=== PATIENT | female | born 1970 | race Caucasian/White ===

== ENCOUNTER 2017-09-09 14:20 | Observation (INO) | payer OTHER ==
[~2017-09-09] VITALS: Ht 149.9 cm; Wt 82.0 kg
[~2017-09-09 14:20] MED LIST: FRS/40 PO; HYDR-5688 PO; MCRKUNK PO; MULT-506 PO; PRT/20 PO; TRAZ50TA35 PO
--- NOTE | 2017-09-09 14:42 | EMERGENCY ROOM VISIT NOTE ---
History First contact with patient: 14:24 Stated Complaint: ILLNESS History of Present Illness The patient is a 46 year old female who presents to the Emergency Room with complaints of went to her PCP because she was experiencing opiate withdrawal symptoms. She was told to go the ER due to blood pressure of 170/120. In terms of withdrawal symptoms she is having terrible calf and biceps spasms, insomnia, abdominal cramps, worsening diarrhea (4-5 times/day, no GI bleeding), night sweats, balance problems, dizzy all the time, depth perception changes. She is a previous IVDU (heroin) who quit 13 years ago. She had 7 years without substance abuse but then after some back pain she was treated with Subutex. She has been on Subutex for the past three years. 4 weeks ago she decided to self wean herself off of Subutex over a 2 week period. Her last dose was 2 weeks prior. She also recently injected cocaine on last week to help with her symptoms. She has increased her alcohol intake due to withdrawal symptoms and drank a bottle of whisky over the past 2 days. In addition she bought Xanax (illegally) to manage her insomnia which helped the past 2 nights. She smokes half a pack of cigarettes/day. She has previously been through opiate withdrawals, no previous seizures or alcohol withdrawals. Previous rehabilitation in 1983 and 1995. She managed to quit opiates " because I wanted to" 13 years prior but she would not elaborate on this. She is not known to the hospital but reports not wanting to go to her local hospital ([place]) as she knows people there and family members of hers have previously had misdiagnoses, so she asked the ambulance to bring her here. Her PCP is Dr Duc Kebede. She is known to have hypertension treated with amlodipine, lisinopril and atenolol although she reports not taking her amlodipine recently. She denies any previous stroke or heart attack. Review of Systems All systems reviewed and otherwise negative Past Medical/Surgical History Medical Problems: (1) Cannabis abuse (2) GERD (gastroesophageal reflux disease) (3) Hypertension (4) Insomnia (5) Opiate use (6) Tobacco use disorder (7) Withdrawal etoh, cocaine Surgical Problems: (1) History of cholecystectomy Social History Problems: (1) Alcohol abuse Social History Smoking Status: Current Every Day Smoker (0.5 packs/day) Alcohol Use: heavy Drug Use: cocaine, heroin Current/Historical Medications Scheduled Albuterol Hfa (Ventolin Hfa), 2 PUFFS INH Q6H Amlodipine Besylate (Amlodipine Besylate), 5 MG PO DAILY Aspirin (Aspirin 81), 81 MG PO DAILY Buprenorphine Hcl (Subutex), 1 TAB SL DAILY Furosemide (Lasix), 40 MG PO three times a week Furosemide (Lasix), 1 TAB PO DAILY Montelukast Sodium (Montelukast Sodium), 1 TAB PO DAILY Multivitamin (Multivitamin), 1 TAB PO DAILY Pantoprazole (Protonix), 10 MG PO DAILY Potassium Chloride (Micro-K Ext Rel Unknown Dose), MEQ PO 3-4 times weekly Ranitidine (Zantac), 150 MG PO DAILY Trazodone Hcl (Trazodone), 50 MG PO HS Scheduled PRN Hydrocodone/Acetaminophen 5MG/325MG ([place] 5MG/325MG), 1 TABLET PO DAILY PRN for Pain Miscellaneous Medications Potassium Ext Rel (Klor-Con), 20 MEQ PO Physical Exam Vital Signs Date Time Temp Pulse Resp B/P (MAP) Pulse Ox O2 Delivery O2 Flow Rate FiO2 09/09/17 16:18 75 18 176/117 97 Room Air 09/09/17 15:21 77 18 169/119 97 Room Air 09/09/17 14:38 73 09/09/17 14:36 95 Room Air 09/09/17 14:31 36.6 82 16 179/108 95 Room Air Physical Exam General Appearance: + moderate distress, + obese Head: normocephalic, atraumatic Eyes: normal inspection, PERRL, EOMI ENT: hearing grossly normal, pharynx normal Cardiovascular: regular rate, rhythm, no edema, no murmur, normal peripheral pulses Abdomen / GI: normal bowel sounds, soft, + tenderness Back: no CVA tenderness Extremities: no calf tenderness, normal capillary refill, no pedal edema Neurologic/Psych: 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 COMPARISON STUDY: No previous studies for comparison. FINDINGS: Lung volumes are normal. Lungs are clear. No pneumothorax or pleural effusion is present. Pulmonary vascularity is normal. Cardiomediastinal silhouette is normal. IMPRESSION: No acute cardiopulmonary findings. Electronically signed by: Rd Thomas M.D. 09/09/2017 4:44 PM Dictated Date/Time: 09/09/2017 4:43 PM Laboratory Results Test 09/09/17 14:55 Total Bilirubin 0.1 mg/dl (0.2-1) Aspartate Amino Transf (AST/SGOT) 12 U/L (15-37) Alanine Aminotransferase (ALT/SGPT) 31 U/L (12-78) Alkaline Phosphatase 78 U/L (45-117) Total Protein 7.6 gm/dl (6.4-8.2) Albumin 3.6 gm/dl (3.4-5.0) Globulin 4.0 gm/dl (2.5-4.0) Albumin/Globulin Ratio 0.9 (0.9-2) Ethyl Alcohol mg/dL 5.0 mg/dl (0-3) Medications Administered Medications (Trade) Dose Ordered Sig/Agustin Route Start Time Stop Time Status Last Admin Dose Admin Multivitamins 10 ml/Thiamine HCl 100 mg/Folic Acid 1 mg/Sodium Chloride 1,011.2 ml @ 250 mls/ hr Q4H3M ONCE IV 09/09/17 14:45 09/09/17 18:48 DC 09/09/17 15:26 250 MLS/HR Clonidine HCl (Catapres Tab) 0.1 mg NOW STAT PO 09/09/17 14:54 09/09/17 14:55 DC 09/09/17 15:22 0.1 MG ECG Indication: chest pain Rate (beats per minute): 69 Rhythm: normal sinus Findings: T-wave inversion (Lateral) Change: new TWI since 09/18/2016 (EKG obtained from [facility]) ED Course 16:34 Patient was reassessed in the ER and discussed chest pain and shortness of breath on exertion 16:[address] Cabrera who accepted the patient for further evaluation Medical Decision Prior records/ancillary studies reviewed. Triage Nursing notes reviewed. Additional history obtained from patient. The patient's history was concerning for chest pain, hypertension and opiate withdrawal. Differential diagnosis: Etiologies such as cardiac ischemia, aortic dissection, CVA, pulmonary embolism , pneumonia, pneumothorax, musculoskeletal, infections, pericarditis, myocarditis, esophageal rupture, gastrointestinal, as well as others were entertained. Physical examination: As above. ER treatment provided: Banana bag x1 Clonidine 0.1mg PO On reassessment the patient felt better. Diagnostic interpretation by me: The electrocardiogram showed TWI in I and aVL. This was compared with old EKGs from [place] and determined to be new The labs revealed normal troponin Imaging studies: Chest x-ray normal as above The patient had hypertension uncontrolled without end organ damage or symptoms of urgency plan was for discharge with appropriate opiate withdrawal follow up from her PCP. However on further question she notes shortness of breath on exertion, unable to walk up a flight of stairs and chest pain the previous night. Given these findings with EKG changes from previous recommend she stays in hospital for observation as a chest pain rule out [place]. Consultation: A consultation was placed with the [facility] hospitalist (Dr Cabrera). The case was discussed and diagnostics were reviewed. The patient was evaluated in the ER for further treatment. Medication Reconcilliation Current Medication List: was personally reviewed by me Blood Pressure Screening Patient's blood pressure: Elevated blood pressure referred to hospitalist Consults Time Called: 16:37 Consulting Physician: Dr Carlin Cabrera Returned Call: 16:38 Accepted patient for further evaluation Impression Primary Impression: Chest pain Additional Impressions: Shortness of breath on exertion Opiate withdrawal Uncontrolled hypertension Departure Information Dispostion Being Evaluated By Hospitalist Condition FAIR Resident Tracking Resident Involvement: Resident Care Provided Care Provided: Adult ED Problem Qualifiers
[2017-09-09] MEDS ORDERED: MULTI-VITAMIN INFUSION INJ 10 ML, THIAMINE HCL INJ 100 MG, FoLIC ACID INJ 1 MG in SODIU... IV ONE (14:45)
[2017-09-09] MEDS ORDERED: CLONIDINE HCL 0.1 MG TAB PO STA (14:54)
[2017-09-09 15:13] LABS: BASO % 0.2 %; BASO ABS # 0.02 K/uL (0-0.2); COMPLETE YES; EOS % 0.6 %; IG% 0.4 %; LYMPH % 23.9 %; LYMPH ABS # 2.45 K/uL (1.2-3.4); MEAN CELL VOLUME 84.7 fL (80-100); MEAN CORPUSCULAR HEMOGLOBIN 28.6 pg (25-34); MEAN CORPUSCULAR HGB CONC 33.8 g/dl (32-36); MEAN PLATELET VOLUME 10.4 fL (7.4-10.4); MONO % 5.6 %; NEUT % 69.3 %; PLATELET COUNT 207 K/uL (130-400); RED BLOOD COUNT 4.96 M/uL (4.2-5.4); WHITE BLOOD COUNT 10.23 K/uL (4.8-10.8)
[2017-09-09 15:36] LABS: ALT/SGPT 31 U/L (12-78); BLOOD UREA NITROGEN 17 mg/dl (7-18); BUN/CREATININE RATIO 25.3 (10-20); CALCIUM 8.7 mg/dl (8.5-10.1); CARBON DIOXIDE 21 mmol/L (21-32); CHLORIDE 109 mmol/L (98-107); CREATININE 0.66 mg/dl (0.60-1.20); GLUCOSE 95 mg/dl (70-99); POTASSIUM 3.9 mmol/L (3.5-5.1); SODIUM 138 mmol/L (136-145)
[2017-09-09 15:40] LABS: ALB/GLOB RATIO 0.9 (0.9-2); ALKALINE PHOSPHATASE 78 U/L (45-117); AST/SGOT 12 U/L (15-37)
[2017-09-09] MEDS ORDERED: THIA100T11 PO (16:11)
[2017-09-09] MEDS ORDERED: HYDR25CA PO (16:11)
--- NOTE | 2017-09-09 16:45 | DIAGNOSTIC IMAGING REPORT ---
CHEST ONE VIEW PORTABLE CLINICAL HISTORY: Chest pain. COMPARISON STUDY: No previous studies for comparison. FINDINGS: Lung volumes are normal. Lungs are clear. No pneumothorax or pleural effusion is present. Pulmonary vascularity is normal. Cardiomediastinal silhouette is normal. IMPRESSION: No acute cardiopulmonary findings. Electronically signed by: Rd Thomas M.D. 09/09/2017 4:44 PM Dictated Date/Time: 09/09/2017 4:43 PM
[2017-09-09] MEDS ORDERED: POLYETHYLENE (MIRALAX) 17 GM PACK PO PRN (17:30)
[2017-09-09] MEDS ORDERED: ACETAMINOPHEN 325 MG TAB PO PRN (17:30)
[2017-09-09] MEDS ORDERED: ONDANSETRON INJ 2 MG/ML 2 ML VIAL IV PRN (17:30)
[2017-09-09 18:04] LABS: URINE APPEARANCE CLEAR (CLEAR); URINE BILIRUBIN NEG (NEG); URINE COLOR YELLOW; URINE NITRITE NEG (NEG); URINE SPECIFIC GRAVITY 1.024 (1.000-1.030); UROBILINOGEN NEG (NEG); ZZUR CULT IF INDIC CLEAN CATCH NO
[2017-09-09 18:11] LABS: MANUAL MICROSCOPIC REQUIRED? NO; REVIEW REQ? NO
--- NOTE | 2017-09-09 18:27 | EMERGENCY ROOM VISIT NOTE ---
History Report prepared by Jaime: Karen Sears Under the Supervision of: Dr. Rick Ralph M.D. First contact with patient: 14:31 Chief Complaint: ILLNESS Stated Complaint: ILLNESS History of Present Illness The patient is a 46 year old female who presents to the Emergency Room with complaints of constant withdrawal symptoms beginning 2 weeks ago. The patient started to slowly wean herself off of Subutex two weeks ago. She was put on 2 mg of Subutex a couple years ago for back pain and has been taking it daily since. The patient reports night time sweats, worsening diarrhea, leg cramps, palpitations, and general fatigue beginning 2 weeks ago. She denies any hallucinations, chest pain, or shortness of breath. The patient reports injecting cocaine on , six days ago, to help with her withdrawal symptoms. She also notes taking "street" Xanax over the past two days. The patient reports a history of heroin abuse 13 years ago. She also notes more alcohol use over the past two weeks and drank a bottle of whiskey 2 days ago. The patient went to her PCP for withdrawal help and was refereed to the ED because her blood pressure was elevated. The patient has a history of hypertension and takes lisinopril daily and amlodipine at night. She denies taking her high blood pressure medication over the past couple days. The patient has a history of substance abuse. Source of History: patient Onset: 2 weeks ago Position: other (global) Quality: other (withdrawal symptoms) Timing: constant Associated Symptoms: + diaphoresis, + diarrhea, + fatigue, No chest pain, No SOB Note: he patient reports leg cramps and palpitations. She denies any hallucinations. Review of Systems See HPI for pertinent positives & negatives. A total of 10 systems reviewed and were otherwise negative. Past Medical & Surgical Medical Problems: (1) GERD (gastroesophageal reflux disease) (2) Hypertension (3) Insomnia (4) Opiate use (5) Tobacco use disorder (6) Withdrawal etoh, cocaine Surgical Problems: (1) History of cholecystectomy Social History Problems: (1) Alcohol abuse Family History Patient reports no known family medical history. Social History Smoking Status: Current Every Day Smoker Marital Status: Housing Status: lives with significant other Allergies Coded Allergies: No Known Allergies (Unverified , 09/09/17) Physical Exam Vital Signs Date Time Temp Pulse Resp B/P (MAP) Pulse Ox O2 Delivery O2 Flow Rate FiO2 09/09/17 17:44 73 18 149/109 97 Room Air 09/09/17 16:18 75 18 176/117 97 Room Air 09/09/17 15:21 77 18 169/119 97 Room Air 09/09/17 14:38 73 09/09/17 14:36 95 Room Air 09/09/17 14:31 36.6 82 16 179/108 95 Room Air Physical Exam Constitutional: Vital signs reviewed. Eyes: Pupils are equal round reactive to light. Conjunctiva are noninjected. ENT: Pharynx is clear without erythema or exudate. Mucous membranes are moist. Neck supple without meningeal signs. Respiratory: Clear to auscultation bilaterally. Breath sounds are equal bilaterally. Cardiovascular: Regular rate and rhythm. No murmurs, rubs or gallops. GI: Soft, nondistended and nontender. Bowel sounds are present. Musculoskeletal: No sign of infection to injection sight of left hand. No peripheral edema. No lower extremity tenderness. Integumentary: No cyanosis. Neurological: The patient is awake and alert. No focal deficits. Psychiatric: Normal affect. Medical Decision & Procedures ER Provider Diagnostic Interpretation: Radiology results as stated below per my review and the radiologist's interpretation: CHEST ONE VIEW PORTABLE FINDINGS: Lung volumes are normal. Lungs are clear. No pneumothorax or pleural effusion is present. Pulmonary vascularity is normal. Cardiomediastinal silhouette is normal. IMPRESSION: No acute cardiopulmonary findings. Electronically signed by: Rd Thomas M.D. Laboratory Results 09/09/17 14:55 Red Blood Count 4.96, Mean Corpuscular Volume 84.7, Mean Corpuscular Hemoglobin 28.6, Mean Corpuscular Hemoglobin Concent 33.8, Mean Platelet Volume 10.4, Neutrophils (%) (Auto) 69.3, Lymphocytes (%) (Auto) 23.9, Monocytes (%) (Auto) 5.6, Eosinophils (%) (Auto) 0.6, Basophils (%) (Auto) 0.2, Neutrophils # (Auto) 7.09, Lymphocytes # (Auto) 2.45, Monocytes # (Auto) 0.57, Eosinophils # (Auto) 0.06, Basophils # (Auto) 0.02 09/09/17 14:55 Test 09/09/17 14:55 09/09/17 17:40 White Blood Count 10.23 K/uL (4.8-10.8) Red Blood Count 4.96 M/uL (4.2-5.4) Hemoglobin 14.2 g/dL (12.0-16.0) Hematocrit 42.0 % (37-47) Mean Corpuscular Volume 84.7 fL (80-100) Mean Corpuscular Hemoglobin 28.6 pg (25-34) Mean Corpuscular Hemoglobin Concent 33.8 g/dl (32-36) Platelet Count 207 K/uL (130-400) Mean Platelet Volume 10.4 fL (7.4-10.4) Neutrophils (%) (Auto) 69.3 % Lymphocytes (%) (Auto) 23.9 % Monocytes (%) (Auto) 5.6 % Eosinophils (%) (Auto) 0.6 % Basophils (%) (Auto) 0.2 % Neutrophils # (Auto) 7.09 K/uL (1.4-6.5) Lymphocytes # (Auto) 2.45 K/uL (1.2-3.4) Monocytes # (Auto) 0.57 K/uL (0.11-0.59) Eosinophils # (Auto) 0.06 K/uL (0-0.5) Basophils # (Auto) 0.02 K/uL (0-0.2) RDW Standard Deviation 43.4 fL (36.4-46.3) RDW Coefficient of Variation 14.1 % (11.5-14.5) Immature Granulocyte % (Auto) 0.4 % Immature Granulocyte # (Auto) 0.04 K/uL (0.00-0.02) Anion Gap 8.0 mmol/L (3-11) Est Creatinine Clear Calc Drug Dose 93.9 ml/min Estimated GFR () 122.8 Estimated GFR (Non- 105.9 BUN/Creatinine Ratio 25.3 (10-20) Calcium Level 8.7 mg/dl (8.5-10.1) Total Bilirubin 0.1 mg/dl (0.2-1) Aspartate Amino Transf (AST/SGOT) 12 U/L (15-37) Alanine Aminotransferase (ALT/SGPT) 31 U/L (12-78) Alkaline Phosphatase 78 U/L (45-117) Troponin I < 0.015 ng/ml (0-0.045) Total Protein 7.6 gm/dl (6.4-8.2) Albumin 3.6 gm/dl (3.4-5.0) Globulin 4.0 gm/dl (2.5-4.0) Albumin/Globulin Ratio 0.9 (0.9-2) Ethyl Alcohol mg/dL 5.0 mg/dl (0-3) Urine Color YELLOW Urine Appearance CLEAR (CLEAR) Urine pH 5.0 (4.5-7.5) Urine Specific [place] 1.024 (1.000-1.030) Urine Protein NEG (NEG) Urine Glucose (UA) NEG (NEG) Urine Ketones NEG (NEG) Urine Occult Blood 1+ (NEG) Urine Nitrite NEG (NEG) Urine Bilirubin NEG (NEG) Urine Urobilinogen NEG (NEG) Urine Leukocyte Esterase NEG (NEG) Urine WBC (Auto) 1-5 /hpf (0-5) Urine RBC (Auto) 5-10 /hpf (0-4) Urine Hyaline Casts (Auto) 0 /lpf (0-5) Urine Epithelial Cells (Auto) 5-10 /lpf (0-5) Urine Bacteria (Auto) NEG (NEG) Laboratory results as reviewed by me. Medications Administered Medications (Trade) Dose Ordered Sig/Agustin Route Start Time Stop Time Status Last Admin Dose Admin Multivitamins 10 ml/Thiamine HCl 100 mg/Folic Acid 1 mg/Sodium Chloride 1,011.2 ml @ 250 mls/ hr Q4H3M ONCE IV 09/09/17 14:45 09/09/17 18:47 09/09/17 15:26 250 MLS/HR Clonidine HCl (Catapres Tab) 0.1 mg NOW STAT PO 09/09/17 14:54 09/09/17 14:55 DC 09/09/17 15:22 0.1 MG ECG Indication: chest pain Rate (beats per minute): 76 Rhythm: normal sinus Findings: ST depression (V1 and avL), T-wave inversion (v1 and avL), no ectopy ED Course 1445: Ordered Multivitamins 10 ml/Thiamine HCl 100 mg/FOlic Acid 1 mg/Sodium Chloride. 1454: Resident ordered Clonidine HCl. The patient was evaluated in room A11B. A complete history and physical exam was performed. 1626: I updated the patient on her abnormal EKG and asked her again if she was having any chest pain. She report heart flutters and chest tightness which she attributed to smoking. Her last episode of chest tightness was last night. 163: Resident spoke with Dr. Cabrera of [facility] Hospitalist Services. We discussed the patient and results. The patient will be further evaluated by him. Medical Decision This is a 46-year-old female who presents with elevated blood pressure and general malaise. Differential diagnosis includes medication noncompliance, hypertensive emergency, opiate withdrawal, metabolic derangement, infection. I did perform a limited focused review of portions of the patient's old chart on the electronic medical record. The patient has had no recent pertinent visits to this hospital. I did evaluate the patient as noted above. IV access was established. The patient was placed on a continuous wildlife rehabilitator. She is hypertensive. We did treat her with clonidine orally to help with her withdrawal as well as her blood pressure. I did order and personally review the patient's 12-lead EKG and chest x-ray as described above. Her chest x-ray is concerning that she has T-wave inversions and some ST depressions in the high lateral leads. We did obtain an old EKG from [facility]. She did not have these changes at that time. I did order and review the patient's blood work as noted in the electronic medical record. Her troponin is negative. Initially the patient stated that she did not have any chest discomfort or shortness of breath. Upon further questioning she stated that she had some tightness in her chest which she had just attributed to her smoking history. The last time she had this tightness was yesterday evening. Because of her abnormal EKG changes, chest discomfort as well as elevated blood pressures I did feel is prudent to hospitalize the patient for repeat cardiac enzymes and further evaluation. She did feel better after clonidine that her blood pressure remained elevated. The case was discussed with the hospitalist and manager case. Resident Physician Supervision Note: I did evaluate and examine this patient myself. I did guide management for the patient. I agree with the resident's Dr. Vazquez assessment as discussed. Please see the resident's dictation for further details. Medication Reconcilliation Current Medication List: was personally reviewed by me Blood Pressure Screening Patient's blood pressure: Elevated blood pressure Blood pressure disposition: Referred to PCP Consults Time Called: 1634 Consulting Physician: Dr. Cabrera-[facility] Returned Call: [address] Cabrera of [facility] Hospital[facility]. We discussed the patient and results. The patient will be further evaluated by him. Impression Primary Impression: Opiate withdrawal Additional Impressions: Uncontrolled hypertension Acute chest pain Abnormal EKG Scribe Attestation The scribe's documentation has been prepared under my direct and personally reviewed by me in its entirety. I confirm that the note above accurately reflects all work, treatment, procedures, and medical decision making performed by me. Departure Information Dispostion Being Evaluated By Hospitalist Patient Instructions My [facility] Problem Qualifiers
[2017-09-09 18:28] LABS: BENZODIAZEPINE, URINE POS (NEG); COCAINE,URINE NEG (NEG); PHENCYCLIDINE, URINE NEG (NEG)
[2017-09-09] MEDS ORDERED: MONT1TAB5 PO (18:32)
[2017-09-09] MEDS ORDERED: VNTHFA/IN INH (18:32)
[2017-09-09] MEDS ORDERED: BUPR8SUB19 SL (18:32)
[2017-09-09] MEDS ORDERED: FURO20TA PO (18:32)
[2017-09-09] MEDS ORDERED: ASPI-435 PO (18:32)
[2017-09-09] MEDS ORDERED: ZNTT/150 PO (18:32)
[2017-09-09] MEDS ORDERED: NRV5 PO (18:32)
[2017-09-09] MEDS ORDERED: POTA20TA16 PO (18:32)
--- NOTE | 2017-09-09 18:36 | History and Physical ---
History & Physical Date & Time of Service: Sep 09, 2017 at 18:03 Chief Complaint: Illness Primary Care Physician: Raffy Xavier D.O. History of Present Illness Source: patient This is a 46 yo F with pmhx of IVDA with heroin, obesity, possible obstructive sleep apnea, anxiety, depression, chronic back pain on subutex who presents with withdrawal symptoms after attempting to wean herself off subutex in the past 2 weeks, starting the week of . The patient notes she has been getting subutex from [facility] for the past several months. Prior to this she had been going to [facility] in [facility]. The patient notes she was tired of being told by providers when she would be allowed her medications, how much, and difficulty with insurance companies covering any or none of the payments for Subutex. The patient began to have withdrawal sx from the medication which included nausea, vomiting, diarrhea, shakes, sweats/chills. At one point in the past week she self medicated by using IV cocaine x 1, and inhalation of cocaine multiple times , taking xanax 0.50 mg at a time at least twice daily (which was obtained through drug dealer as she is not prescribed this), and drinking a 5th of whiskey in 2 days. Her last drink was a 1/2 glass of wine this morning. She typically smokes cigarrettes 1/2 ppd x 15 years, and also uses marijuana for insomnia 1-2x per week. She was having extreme difficulty with insomnia s/p cocain use so also reports using xanax for this. The patient was brought to the ER with withdrawal symptoms again and she noted to have chest tightness which she relates to smoking. She has had similar pain like this in the past where it quickly resolved. She denies any sob, flutter, palpitation or headache associated with it at the time. Currently she denies any type of chest pain. Pertinent SHx: The patient does not follow with psychiatry routinely. She does have a counselor/sponsor whom she talks to regularly. She used to participate in a 12 step group but that was years ago. The patient was incarcerated in 2006 for possession of drugs and spent a few weeks in halfway. Reports having suicidal ideations in the past, but denies any currently. Pt denies hx or current homicidal ideations. She lives with her , and 17 yo son. She reports her son was present for this past episode and she does not attempt to hide her condition from him. She also has a daughter who is 20 yo, but does not live with her and she pays child support to. 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) Allergies Coded Allergies: No Known Allergies (Unverified , 09/09/17) Review of Systems Constitutional: + chills, + sweats, + fatigue, No fever Eyes: No worsening of vision, No redness ENT: No hearing loss, No nasal symptoms, No sore throat, No tinnitus Respiratory: + wheezing, No cough, No sputum, No shortness of breath, No dyspnea on exertion Cardiovascular: No chest pain, No edema, No claudication Abdomen: + nausea, + vomiting, + diarrhea (4x daily now for 3 days), No pain, No constipation Musculoskeletal: No joint pain, No swelling Neurologic: No numbness/tingling Psychiatric: + depression symptoms, + anxiety, + insomnia, + substance abuse Endocrine: + fatigue Integumentary: No rash, No itch Physical Exam Vital Signs Date Time Temp Pulse Resp B/P (MAP) Pulse Ox O2 Delivery O2 Flow Rate FiO2 09/09/17 17:44 73 18 149/109 97 Room Air 09/09/17 16:18 75 18 176/117 97 Room Air 09/09/17 15:21 77 18 169/119 97 Room Air 09/09/17 14:38 73 09/09/17 14:36 95 Room Air 09/09/17 14:31 36.6 82 16 179/108 95 Room Air General Appearance: WD/WN, no apparent distress, + obese, + pertinent finding ( anxious, ravinously eat a sandwhich) Head: normocephalic, atraumatic Eyes: PERRL, EOMI ENT: hearing grossly normal, pharynx normal, + pertinent finding (MMM) Neck: supple, no JVD Respiratory/Chest: no respiratory distress, no accessory muscle use, + pertinent finding (on RA, slight expiratory wheeze in the Left barry, otherwise clear throughout) Cardiovascular: regular rate, rhythm, no murmur, normal peripheral pulses Abdomen/GI: normal bowel sounds, non tender, soft Back: normal inspection Extremities/Musculoskelatal: no calf tenderness, + pedal edema (mild pitting edema in BLE) Neurologic/Psych: alert, oriented x 3, + pertinent finding (anxious, tearful at times) Skin: normal color, warm/dry Diagnostics Laboratory Results Results Past 24 Hours Test 09/09/17 14:55 09/09/17 17:40 Range/Units White Blood Count 10.23 4.8-10.8 K/uL Red Blood Count 4.96 4.2-5.4 M/uL Hemoglobin 14.2 12.0-16.0 g/dL Hematocrit 42.0 37-47 % Mean Corpuscular Volume 84.7 80-100 fL Mean Corpuscular Hemoglobin 28.6 25-34 pg Mean Corpuscular Hemoglobin Concent 33.8 32-36 g/dl Platelet Count 207 130-400 K/uL Mean Platelet Volume 10.4 7.4-10.4 fL Neutrophils (%) (Auto) 69.3 % Lymphocytes (%) (Auto) 23.9 % Monocytes (%) (Auto) 5.6 % Eosinophils (%) (Auto) 0.6 % Basophils (%) (Auto) 0.2 % Neutrophils # (Auto) 7.09 1.4-6.5 K/uL Lymphocytes # (Auto) 2.45 1.2-3.4 K/uL Monocytes # (Auto) 0.57 0.11-0.59 K/uL Eosinophils # (Auto) 0.06 0-0.5 K/uL Basophils # (Auto) 0.02 0-0.2 K/uL RDW Standard Deviation 43.4 36.4-46.3 fL RDW Coefficient of Variation 14.1 11.5-14.5 % Immature Granulocyte % (Auto) 0.4 % Immature Granulocyte # (Auto) 0.04 0.00-0.02 K/uL Sodium Level 138 136-145 mmol/L Potassium Level 3.9 3.5-5.1 mmol/L Chloride Level 109 98-107 mmol/L Carbon Dioxide Level 21 21-32 mmol/L Anion Gap 8.0 3-11 mmol/L Blood Urea Nitrogen 17 7-18 mg/dl Creatinine 0.66 0.60-1.20 mg/dl Est Creatinine Clear Calc Drug Dose 93.9 ml/min Estimated GFR () 122.8 Estimated GFR (Non- 105.9 BUN/Creatinine Ratio 25.3 10-20 Random Glucose 95 70-99 mg/dl Calcium Level 8.7 8.5-10.1 mg/dl Total Bilirubin 0.1 0.2-1 mg/dl Aspartate Amino Transf (AST/SGOT) 12 15-37 U/L Alanine Aminotransferase (ALT/SGPT) 31 12-78 U/L Alkaline Phosphatase 78 45-117 U/L Troponin I < 0.015 0-0.045 ng/ml Total Protein 7.6 6.4-8.2 gm/dl Albumin 3.6 3.4-5.0 gm/dl Globulin 4.0 2.5-4.0 gm/dl Albumin/Globulin Ratio 0.9 0.9-2 Ethyl Alcohol mg/dL 5.0 0-3 mg/dl EKG Normal sinus rhythm Possible Left atrial enlargement ST & T wave abnormality, consider lateral ischemia Abnormal ECG No previous ECGs available Vent. rate 76 BPM ID interval 160 ms QRS duration 86 ms QT/QTc 384/432 ms P-R-T axes 45 33 107 Impression Assessment and Plan This is a 46 yo F with pmhx of IVDA with heroin, obesity, possible obstructive sleep apnea, anxiety, depression, chronic back pain on subutex who presents with withdrawal symptoms after attempting to wean herself off subutex in the past 2 weeks, starting the week of . Opiod/etoh withdrawal IVDA hx - Admit to tele for observation - Withdrawal sx seem to be mild at this time, pt reports feeling well since having fluids and food. - Banana bag daily, MVI, folic acid - Drug tox in process - follow - avoid narcotics and benzodiazepines - Consider psychiatry in the morning - pt denies needs at this time - Will need outpatient psych/counseling plan prior to discharge - PT does have HELP and crisis numbers if needed. She was instructed to tell pete if she develops any sort of suicidal or homicidal ideations. Chest pain - CP likely related to anxiety, resolved at this point - Initial trop neg, will trend x 2 more sets - EKG reviewed as above - Echo ordered Obesity - Diet and exercise encourage prior to dc HTN - Continue home medications of lisinopril, lasix and amlodipine - pt had not been taking amlodipine for the past 2 weeks during this withdrawal period. - BP elevated in 190s/110 initially, down to 149/80s during my examination Chronic Tobacco Use Marijuana use - cessation encouraged - nicotine patch ordered DVT ppx: ambulatory CODE STATUS: FULL Disposition: Admitted for tele obs, d/c likely tomorrow, CM to assist with dc planning Level of Care Telemetry Advanced Directives Existing Advance Directive: Yes Existing Living Will: Yes Existing Power of Business Development Coordinator: Yes Existing Health Care Proxy: Yes Resuscitation Status FULL RESUSCITATION VTE Prophylaxis VTE Risk Assessment Done? Y/N: Yes Risk Level: Very Low Given or contraindicated: Treatment not tolerated
[2017-09-09 18:41] VITALS: O2SAT 97
[2017-09-09] MEDS ORDERED: IV FLUIDS COMPLETED PRN (18:45)
[2017-09-09 19:15] VITALS: BP 148/79; PULSE 69; TEMP 36.5; Ht 149.9 cm; Wt 82.0 kg
[2017-09-09] MEDS: ALBUTEROL HFA 8 GM INHALER INH SCH (20:00)
[2017-09-09] MEDS: NICOTINE 7 MG/24 HR TDSY TD SCH (20:40)
[2017-09-09] MEDS ORDERED: hydrOXYzine HCL 25 MG TAB PO PRN (21:00)
[2017-09-09] MEDS ORDERED: MONTELUKAST SOD 10 MG TAB PO SCH (21:00)
[2017-09-09] MEDS ORDERED: AMLODIPINE BESYLATE 5 MG TAB PO SCH (21:00)
[2017-09-10 00:03] VITALS: BP 148/85; PULSE 67; TEMP 36.8; O2SAT 98
[2017-09-10 03:18] VITALS: BP 153/97; PULSE 73; TEMP 36.8; O2SAT 97
[2017-09-10 05:03] LABS: BASO % 0.2 %; BASO ABS # 0.02 K/uL (0-0.2); COMPLETE YES; EOS % 1.7 %; HEMATOCRIT 39.5 % (37-47); IG% 0.4 %; LYMPH % 36.6 %; LYMPH ABS # 3.61 K/uL (1.2-3.4); MEAN CELL VOLUME 85.9 fL (80-100); MEAN CORPUSCULAR HEMOGLOBIN 28.9 pg (25-34); MEAN CORPUSCULAR HGB CONC 33.7 g/dl (32-36); MEAN PLATELET VOLUME 10.4 fL (7.4-10.4); MONO % 6.9 %; NEUT % 54.2 %; PLATELET COUNT 180 K/uL (130-400); WHITE BLOOD COUNT 9.87 K/uL (4.8-10.8)
[2017-09-10 05:22] LABS: BLOOD UREA NITROGEN 17 mg/dl (7-18); BUN/CREATININE RATIO 22.9 (10-20); CALCIUM 8.1 mg/dl (8.5-10.1); CARBON DIOXIDE 22 mmol/L (21-32); CHLORIDE 108 mmol/L (98-107); CREATININE 0.74 mg/dl (0.60-1.20); GLUCOSE 101 mg/dl (70-99); POTASSIUM 3.7 mmol/L (3.5-5.1); SODIUM 138 mmol/L (136-145)
[2017-09-10 05:27] LABS: CHOLESTEROL 189 mg/dl (0-200); CHOLESTEROL/HDL RATIO 5.3; HDL CHOLESTEROL 36 mg/dl; LDL CHOLESTEROL CALCULATED 113 mg/dl; TRIGLYCERIDES 198 mg/dl (0-150); VERY LOW DENSITY LIPOPROT CALC 40 mg/dl
[2017-09-10] MEDS: ALBUTEROL HFA 8 GM INHALER INH SCH ×3 (06:00→12:00)
[2017-09-10 07:42] VITALS: BP 165/88; PULSE 63; TEMP 37; O2SAT 97
[2017-09-10 08:26] LABS: ESTIMATED AVERAGE GLUCOSE 128 mg/dl; HA1C FLAG Normal (Normal)
[2017-09-10] MEDS: NICOTINE 7 MG/24 HR TDSY TD SCH (09:00)
[2017-09-10] MEDS ORDERED: RANITIDINE HCL 150 MG TAB PO SCH (09:00)
[2017-09-10] MEDS ORDERED: ASPIRIN 81 MG ECTAB PO SCH (09:00)
[2017-09-10] MEDS ORDERED: POTASSIUM CHLORIDE 20 MEQ TABCR PO SCH (09:00)
[2017-09-10] MEDS ORDERED: MULTI-VITAMIN INFUSION INJ 10 ML, THIAMINE HCL INJ 100 MG, FoLIC ACID INJ 1 MG in SODIU... IV SCH (09:00)
[2017-09-10] MEDS ORDERED: NURSING VERBAL MED ORDER ONE (09:15)
[2017-09-10] MEDS ORDERED: CLONIDINE HCL 0.1 MG TAB PO ONE (09:30)
[2017-09-10 11:32] VITALS: BP 183/98; PULSE 79; TEMP 36.2; O2SAT 98
[2017-09-10] MEDS ORDERED: LISINOPRIL 10 MG TAB PO ONE (12:32)
--- NOTE | 2017-09-10 13:55 | ECHOCARDIOGRAM REPORT ---
*NOTICE TO RECEIVING [employer]Y This information is strictly Confidential and protected under [place] law. [place] law prohibits you from making any further disclosure of this information unless further disclosure is expressly permitted by the written consent of the person to whom it pertains or is authorized by law. A general authorization for the release of medical or other information is not sufficient for this purpose. Hospital accepts no responsibility if the information is made available to any other person, INCLUDING THE PATIENT. Interpretation Summary * Name: RANCHO RAGLAND Study Date: 09/10/2017 06:44 AM BP: 153/97 mmHg * Patient Location: [facility] HR: 73 * : 1970 (M/d/yyyy) Gender: Female Height: 59 in * Age: 46 yrs Ethnicity: [place] Weight: 164 lb * Ordering Physician: Torie Duran PA-C * Performed By: Judith Reddy RDCS * * Reason For Study: Chest Pain * BSA: 1.7 m2 * -- Conclusions -- * Left ventricular systolic function is normal. * No regional wall motion abnormalities noted. * Ejection Fraction = 55-60%. * There is mild concentric left ventricular hypertrophy. * Grade I diastolic dysfunction, (abnormal relaxation pattern). * There is mild mitral regurgitation. Procedure Details * A complete two-dimensional transthoracic echocardiogram was performed (2D, M-mode, Doppler and color flow Doppler). Left Ventricle * The left ventricle is normal in size. * There is mild concentric left ventricular hypertrophy. * Ejection Fraction = 55-60%. * Left ventricular systolic function is normal. * No regional wall motion abnormalities noted. Right Ventricle * The right ventricle is grossly normal size. * The right ventricular systolic function is normal as assessed by tricuspid annular plane systolic excursion (TAPSE) (normal >1.5 cm). Atria * Borderline left atrial enlargement. * Right atrial size is normal. * There is no evidence of atrial septal defect, but resolution does not allow assessment for a patent foramen ovale. Mitral Valve * The mitral valve is grossly normal. * There is mild mitral regurgitation. Tricuspid Valve * The tricuspid valve anatomy is normal. * There is no tricuspid stenosis. * Significant tricuspid regurgitation is absent. Aortic Valve * The aortic valve is trileaflet. * The aortic valve opens well. * No hemodynamically significant valvular aortic stenosis. * No aortic regurgitation is present. Pulmonic Valve * The pulmonary valve is not well seen, but the Doppler examination is normal without significant regurgitation or stenosis. Great Vessels * Borderline aortic root dilatation. * The pulmonary is not well visualized. Pericardium/Pleural * There is no pericardial effusion. Left Ventricular Diastolic Function * Grade I diastolic dysfunction, (abnormal relaxation pattern). MMode 2D Measurements and Calculations IVSd 1.3 cm IVSs 1.6 cm LVIDd 4.2 cm LVIDs 3.1 cm LVPWd 1.3 cm LVPWs 2.0 cm IVS/LVPW 0.95 FS 27.8 % EDV(Teich) 79.9 ml ESV(Teich) 36.6 ml EF(Teich) 54.2 % EDV(cubed) 75.6 ml ESV(cubed) 28.5 ml EF(cubed) 62.3 % % IVS thick 21.2 % % LVPW thick 46.2 % LV mass(C)d 204.9 grams LV mass(C)dI 120.9 grams/m\S\2 LV mass(C)s 212.3 grams LV mass(C)sI 125.3 grams/m\S\2 SV(Teich) 43.3 ml SI(Teich) 25.5 ml/m\S\2 SV(cubed) 47.1 ml SI(cubed) 27.8 ml/m\S\2 Ao root diam 3.0 cm Ao root area 7.2 cm\S\2 ACS 2.0 cm LA dimension 3.4 cm LA/Ao 1.1 LVAd ap4 29.7 cm\S\2 LVLd ap4 8.1 cm EDV(MOD-sp4) 94.5 ml EDV(sp4-el) 92.9 ml LVAs ap4 18.4 cm\S\2 LVLs ap4 6.8 cm ESV(MOD-sp4) 45.7 ml ESV(sp4-el) 42.3 ml EF(MOD-sp4) 51.6 % EF(sp4-el) 54.4 % LVAd ap2 18.6 cm\S\2 LVLd ap2 7.5 cm EDV(MOD-sp2) 44.0 ml EDV(sp2-el) 39.2 ml LVAs ap2 11.2 cm\S\2 LVLs ap2 6.3 cm ESV(MOD-sp2) 19.3 ml ESV(sp2-el) 16.7 ml EF(MOD-sp2) 56.1 % EF(sp2-el) 57.5 % LVLd %diff -7.46 % EDV(MOD-bp) 65.9 ml LVLs %diff -6.55 % ESV(MOD-bp) 30.4 ml EF(MOD-bp) 53.9 % SV(MOD-sp4) 48.8 ml SI(MOD-sp4) 28.8 ml/m\S\2 SV(MOD-sp2) 24.7 ml SI(MOD-sp2) 14.6 ml/m\S\2 SV(MOD-bp) 35.5 ml SI(MOD-bp) 21.0 ml/m\S\2 SV(sp4-el) 50.5 ml SI(sp4-el) 29.8 ml/m\S\2 SV(sp2-el) 22.5 ml SI(sp2-el) 13.3 ml/m\S\2 Doppler Measurements and Calculations MV E max kiet 59.2 cm/sec MV A max kiet 85.9 cm/sec MV E/A 0.69 MV dec time 0.26 sec Ao V2 max 105.7 cm/sec Ao max PG 4.5 mmHg Ao max PG (full) 1.1 mmHg LV V1 max PG 3.4 mmHg LV V1 max 91.7 cm/sec PA V2 max 86.3 cm/sec PA max PG 3.0 mmHg
--- NOTE | 2017-09-10 14:32 | Psychiatric Consultation ---
Consultation Date of Consultation Sep 10, 2017. Identifying Data 46 her old white female from the [place] area who has a history of drug abuse and hypertension, and presented via EMS with opiate withdrawal and elevated blood pressure. She was admitted to the hospitalist service for a cardiac workup that she reported dysrhythmia on exertion, chest pain, and had EKG changes, and psychiatry is consulted for mood symptoms. Chief Complaint "This withdrawal". History of Present Illness The patient was seen with [place], the psychiatric liaison nurse, and her was present at bedside at her request. She denies any psychiatric history, but reports a long history of substance abuse, starting at age 11, when her older brother used to pay her with beer for watching his kids. She progressed to abusing cocaine, then heroin, and then "any kind of opiate." She claims that she was sober for 7 years, and then started taking Subutex for back pain about 3 years ago. She states she initially attended a Suboxone clinic in [place], [place], and most recently has been going to [facility] on [facility] [address] outside of [place]. She adamantly denies that she was being prescribed Suboxone for treatment of addiction, and states "it was the only pain medication I could get." She says she decided to take herself off the Suboxone about a month ago, and started weaning herself down over a two- week period, taking her last dose 2 weeks ago. She did this without any input from her prescribing physician, and initially states she decided to stop the medication because her back pain had resolved and she didn't want to take it anymore, but later states that she was told by the Suboxone clinic that she had to change her insurance in order to continue going there, and didn't want to do that, so decided "it's just time to stop it." She began having withdrawal symptoms as soon as she started the taper, and they worsened after she stopped the medication altogether 2 weeks ago. She has been having severe muscle cramping, diarrhea, irritability, nausea, and sleep disturbance. She states that she relapsed over the past week, drinking alcohol every other day (amount unknown per her, but admission note indicates she drank a fifth of whiskey in two days), injected cocaine IV once, snorted cocaine, and obtained Xanax illegally and took several 0.5 mg tablets. She denies that she was having any mood issues prior to stopping the Suboxone, but since stopping it has felt more down. She says "if you were constantly sick, you'd be sad too." She admits to passive suicidal thoughts, but denies plan or intent to harm herself. She states "I just think I'm doomed if my choice is to take this shift or feel like this." No history of psychiatric symptoms other than in the context of substance abuse or withdrawal. She specifically asked EMS to bring her to this hospital, as she does not trust her local hospital. Her drug screen was positive for benzodiazepines, marijuana, and alcohol. Past Psychiatric History Current OP Treatment: no current treatment Prior OP Treatment: therapist (states she saw a therapist whose name she cannot recall several years ago) Prior Psych Hospitalizations: none Suicide Attempts: No Past Medication Trials None Past Medical/Surgical History (1) GERD (gastroesophageal reflux disease) (2) Opiate use (3) Cocaine abuse (4) Benzodiazepine abuse (5) Insomnia (6) Tobacco use disorder (7) Hypertension (8) Chest pain (9) Abnormal EKG (10) Uncontrolled hypertension (11) Opiate withdrawal (12) Withdrawal etoh, cocaine Allergies Allergies: Coded Allergies: No Known Allergies (Verified , 11/11/02) Home Medications Scheduled Albuterol Hfa (Ventolin Hfa), 2 PUFFS INH Q6H Amlodipine Besylate (Amlodipine Besylate), 5 MG PO DAILY Aspirin (Aspirin 81), 81 MG PO DAILY Buprenorphine Hcl (Subutex), 1 TAB SL DAILY Furosemide (Lasix), 40 MG PO three times a week Furosemide (Lasix), 1 TAB PO DAILY Montelukast Sodium (Montelukast Sodium), 1 TAB PO DAILY Multivitamin (Multivitamin), 1 TAB PO DAILY Pantoprazole (Protonix), 10 MG PO DAILY Potassium Chloride (Micro-K Ext Rel Unknown Dose), MEQ PO 3-4 times weekly Ranitidine (Zantac), 150 MG PO DAILY Trazodone Hcl (Trazodone), 50 MG PO HS Scheduled PRN Hydrocodone/Acetaminophen 5MG/325MG (Kittrell 5MG/325MG), 1 TABLET PO DAILY PRN for Pain Miscellaneous Medications Potassium Ext Rel (Klor-Con), 20 MEQ PO Family History Patient reports no known family medical history. History of Suicide: No Psychiatric History: Yes (father had an unknown mental illness) Patient does not know if there is any family history of substance abuse Alcohol Use Alcohol Use In Past 12 Months: Yes (drink every other day for the past week, cannot clarify amount) Smoking Use Smoking Status: Current Every Day Smoker Substance History Significant substance abuse history, starting with alcohol at age 11, and then progressing to cocaine, heroin, and then "any kind of opiate." Has been on Suboxone for the past 3 years until she weaned herself off of it in July 2017. Has been in substance abuse treatment in the past, including an IOP in [place], and attended AA meetings from 2006 - 2014. Also abuses marijuana. Personal History Lives in: near [place], [place] with her Childhood: 2 - 17-year-old son lives with her and her , also has a 20-year-old daughter. 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 Relationship History: Review of Systems 10 systems reviewed; negative except as stated above. Examination Vital Signs Vital Signs Past 12 Hours Date Time Temp Pulse Resp B/P (MAP) Pulse Ox O2 Delivery O2 Flow Rate FiO2 09/10/17 12:19 Room Air 09/10/17 11:32 36.2 79 25 183/98 (126) 98 Room Air 09/10/17 08:00 Room Air 09/10/17 07:42 37.0 63 24 165/88 (113) 97 Room Air 09/10/17 04:00 Room Air 09/10/17 03:18 36.8 73 22 153/97 (115) 97 Room Air Laboratory Results Last 24 Hours Test 09/09/17 14:55 09/09/17 17:40 09/09/17 20:58 09/10/17 04:56 White Blood Count 10.23 K/uL 9.87 K/uL Red Blood Count 4.96 M/uL 4.60 M/uL Hemoglobin 14.2 g/dL 13.3 g/dL Hematocrit 42.0 % 39.5 % Mean Corpuscular Volume 84.7 fL 85.9 fL Mean Corpuscular Hemoglobin 28.6 pg 28.9 pg Mean Corpuscular Hemoglobin Concent 33.8 g/dl 33.7 g/dl Platelet Count 207 K/uL 180 K/uL Mean Platelet Volume 10.4 fL 10.4 fL Neutrophils (%) (Auto) 69.3 % 54.2 % Lymphocytes (%) (Auto) 23.9 % 36.6 % Monocytes (%) (Auto) 5.6 % 6.9 % Eosinophils (%) (Auto) 0.6 % 1.7 % Basophils (%) (Auto) 0.2 % 0.2 % Neutrophils # (Auto) 7.09 K/uL 5.35 K/uL Lymphocytes # (Auto) 2.45 K/uL 3.61 K/uL Monocytes # (Auto) 0.57 K/uL 0.68 K/uL Eosinophils # (Auto) 0.06 K/uL 0.17 K/uL Basophils # (Auto) 0.02 K/uL 0.02 K/uL RDW Standard Deviation 43.4 fL 45.1 fL RDW Coefficient of Variation 14.1 % 14.4 % Immature Granulocyte % (Auto) 0.4 % 0.4 % Immature Granulocyte # (Auto) 0.04 K/uL 0.04 K/uL Sodium Level 138 mmol/L 138 mmol/L Potassium Level 3.9 mmol/L 3.7 mmol/L Chloride Level 109 mmol/L 108 mmol/L Carbon Dioxide Level 21 mmol/L 22 mmol/L Anion Gap 8.0 mmol/L 8.0 mmol/L Blood Urea Nitrogen 17 mg/dl 17 mg/dl Creatinine 0.66 mg/dl 0.74 mg/dl Est Creatinine Clear Calc Drug Dose 93.9 ml/min 87.7 ml/min Estimated GFR () 122.8 112.6 Estimated GFR (Non- 105.9 97.2 BUN/Creatinine Ratio 25.3 22.9 Random Glucose 95 mg/dl 101 mg/dl Calcium Level 8.7 mg/dl 8.1 mg/dl Total Bilirubin 0.1 mg/dl Aspartate Amino Transf (AST/SGOT) 12 U/L Alanine Aminotransferase (ALT/SGPT) 31 U/L Alkaline Phosphatase 78 U/L Troponin I < 0.015 ng/ml < 0.015 ng/ml < 0.015 ng/ml Total Protein 7.6 gm/dl Albumin 3.6 gm/dl Globulin 4.0 gm/dl Albumin/Globulin Ratio 0.9 Ethyl Alcohol mg/dL 5.0 mg/dl Urine Color YELLOW Urine Appearance CLEAR Urine pH 5.0 Urine Specific [place] 1.024 Urine Protein NEG Urine Glucose (UA) NEG Urine Ketones NEG Urine Occult Blood 1+ Urine Nitrite NEG Urine Bilirubin NEG Urine Urobilinogen NEG Urine Leukocyte Esterase NEG Urine WBC (Auto) 1-5 /hpf Urine RBC (Auto) 5-10 /hpf Urine Hyaline Casts (Auto) 0 /lpf Urine Epithelial Cells (Auto) 5-10 /lpf Urine Bacteria (Auto) NEG Urine Opiates Screen NEG Urine Methadone, Qualitative NEG Urine Barbiturates NEG Urine Phencyclidine (PCP) Level NEG Ur Amphetamine/Methamphetamine NEG MDMA (Ecstasy) Screen NEG Urine Benzodiazepines Screen POS Urine Cocaine Metabolite NEG Urine Marijuana (THC) POS Estimated Average Glucose 128 mg/dl Hemoglobin A1c 6.1 % Triglycerides Level 198 mg/dl Cholesterol Level 189 mg/dl HDL Cholesterol 36 mg/dl LDL Cholesterol, Calculated 113 mg/dl VLDL Cholesterol, Calculated 40 mg/dl Cholesterol/HDL Ratio 5.3 Test 09/10/17 11:50 Thyroid Stimulating Hormone (TSH) 2.470 uIu/ml Hepatitis B Surface Antigen NEG HIV (1&2) Ab and P24 Ag, 4th Gener NEG Mental Examination During interview pt is: alert and oriented, cooperative (but irritable edge) Appearance: appropriately dressed, other (appears older than stated age, obese) Eye contact is: fair Motor behavior is: no abnormal motor movements Speech: normal in rate, rhythm & volume, other (irritable tone at times) Affect: irritable Mood is: other ("you'd be sad if he were sick all the time") Thought process: goal directed Thought content: reality based without delusions Suicidal thought are: denied (but has had passive suicidal thoughts in the past week with no plan or intent) Homicidal thoughts are: denied Hallucinations: denies auditory, denies visual Cognition: memory grossly intact, attention grossly intact, language grossly intact Intelligence estimated to be: average Insight: poor Judgement: poor Impression / Recommendations Impression 46-year-old white female with significant substance abuse history but no psychiatric history who presents with poorly controlled hypertension and opiate withdrawal after she took herself off of Suboxone. Her mood symptoms have occurred only in the context of opiate withdrawal and therefore do not meet criteria for clinical depression. Her primary issue is her substance abuse , and she is willing to return to therapy and AA to address that. Risk Factors Assessment : Yes /single/: No Higher / Fall in social status: No Health problems: Yes Mental Health Diagnoses: No Substance use disorders: Yes Previous attempt: No Previous psychiatric stay: No Hopelessness: No Smoker: Yes Protective Factors Assessment : Yes Responsible for young children: Yes Employed: Yes Stable relationships: Yes Supportive family: Yes Recommendations (1) Opiate withdrawal The patient's depressive symptoms occurred only in context of opiate withdrawal , so would not recommend treatment with an antidepressant. We reviewed that this is part of withdrawal, and that she may want to seek treatment if her mood does not improve over the next month. She was also informed of the importance of remaining sober from substances of abuse, as these can contribute to low mood. She signed a release for her Suboxone clinic, and we will get records for collateral information. (2) Withdrawal etoh, cocaine Treatment per primary team. (3) Cocaine abuse Patient has significant substance abuse history, and would not recommend that she be prescribed any controlled substances outside of the hospital. She is willing for a referral for therapy and to return to . She has been advised that if she is unable to maintain sobriety on her own, that she should pursue inpatient rehabilitation or intensive outpatient treatment. (4) Benzodiazepine abuse (5) Cannabis abuse
[2017-09-10] MEDS ORDERED: HydrALAZINE HCL 20 MG/ML VIAL IV. PRN (15:00)
--- NOTE | 2017-09-10 15:02 | Hospitalist Progress Note ---
Hospitalist Progress Note Date of Service Sep 10, 2017. (Angela Castillo .TARAH) Subjective Pt evaluation today including: conversation w/ patient, physical exam, chart review, lab review, review of inpatient medication list Voiding: no voiding problems Long discussion with patient about her substance abuse history. She has been withdrawing for about two weeks since beginning to taper down her Subutex two weeks ago. She was self medicating through the withdrawal with cocaine, alcohol , Xanax and marijuana. She was previously sober for about 7 years before starting the Subutex to treat back pain. She does not want to do inpatient rehab and feels that AA will help her to stay sober as it has helped in the past. She denies ever having gone through alcohol detox in the past even though she has a history of heavy drinking. She is about 36 hours out from her last drink. Subsequent to our conversation this morning she left the floor with her IV pole to go out to the parking lot to smoke. Nursing called security. She returned to her room but maintains that she will leave AMA because she does not see any reason for her to be here anymore despite her elevated blood pressures ROS Constitutional: no chills, aches, sweats or fever Respiratory: no sob,cough, sputum, or wheezing Cardiac: no chest pain, palpitations, edema, orthopnea or lightheadedness GI: no abdominal pain, nausea, vomiting, diarrhea or constipation : no dysuria or hesitancy Extremities: no joint pain or weakness Skin: no rash All Other Systems: Reviewed and Negative (Angela Castillo .TARAH) Medications Medications Administered Medications (Trade) Dose Ordered Sig/Agustin Route Start Time Stop Time Status Last Admin Dose Admin Multivitamins 10 ml/Thiamine HCl 100 mg/Folic Acid 1 mg/Sodium Chloride 1,011.2 ml @ 250 mls/ hr Q4H3M ONCE IV 09/09/17 14:45 09/09/17 18:48 DC 09/09/17 15:26 250 MLS/HR Clonidine HCl (Catapres Tab) 0.1 mg NOW STAT PO 09/09/17 14:54 09/09/17 14:55 DC 09/09/17 15:22 0.1 MG Amlodipine Besylate (Norvasc Tab) 5 mg QPM PO 09/09/17 21:00 10/09/17 20:59 09/09/17 20:42 5 MG Aspirin (Ecotrin Tab) 81 mg DAILY PO 09/10/17 09:00 10/10/17 08:59 09/10/17 08:50 81 MG Montelukast Sodium (Singulair Tab) 10 mg PM PO 09/09/17 21:00 10/09/17 20:59 09/09/17 20:41 10 MG Potassium Chloride (Klor-Con Tab) 20 meq DAILY PO 09/10/17 09:00 10/10/17 08:59 09/10/17 08:50 20 MEQ Ranitidine HCl (zANTac TAB) 150 mg DAILY PO 09/10/17 09:00 10/10/17 08:59 09/10/17 08:50 150 MG Multivitamins 10 ml/Thiamine HCl 100 mg/Folic Acid 1 mg/Sodium Chloride 1,011.2 ml @ 100 mls/ hr DAILY IV 09/10/17 09:00 10/10/17 08:59 09/10/17 08:54 100 MLS/HR Nicotine (Nicoderm Cq 7 Mg Patch) 1 patch QAM TD 09/09/17 18:45 10/09/17 18:44 09/09/17 20:40 1 PATCH Hydroxyzine HCl (Vistaril Tab) 25 mg HS PRN PO 09/09/17 21:00 10/09/17 20:59 09/09/17 21:19 25 MG Clonidine HCl (Catapres Tab) 0.1 mg 0930 ONCE PO 09/10/17 09:30 09/10/17 09:31 DC 09/10/17 10:11 0.1 MG Lisinopril (Zestril Tab) 10 mg 1232 ONCE PO 09/10/17 12:32 09/10/17 12:37 DC 09/10/17 14:06 10 MG Atenolol (Tenormin Tab) 25 mg 1232 ONCE PO 09/10/17 12:32 09/10/17 13:08 DC 09/10/17 12:32 25 MG (Angela Castillo CRNP) Objective Vital Signs Date Time Temp Pulse Resp B/P (MAP) Pulse Ox O2 Delivery O2 Flow Rate FiO2 09/10/17 12:19 Room Air 09/10/17 11:32 36.2 79 25 183/98 (126) 98 Room Air 09/10/17 08:00 Room Air 09/10/17 07:42 37.0 63 24 165/88 (113) 97 Room Air 09/10/17 04:00 Room Air 09/10/17 03:18 36.8 73 22 153/97 (115) 97 Room Air 09/10/17 00:03 36.8 67 20 148/85 (106) 98 Room Air 09/10/17 00:01 Room Air 09/09/17 20:00 Room Air 09/09/17 19:15 36.5 69 18 148/79 Room Air 09/09/17 18:41 79 18 144/89 97 Room Air 09/09/17 17:44 73 18 149/109 97 Room Air 09/09/17 16:18 75 18 176/117 97 Room Air 09/09/17 15:21 77 18 169/119 97 Room Air (Angela Castillo CRNP) Physical Exam Notes: General: no distress Eyes: normal inspection, PERLL Respiratory: chest non tender, clear to auscultation, normal breath sounds, no respiratory distress, no accessory muscle use Cardiac: regular rate and rhythm, no rub or gallop, no murmur, no edema, no jvd GI/: active bowel sounds, no abd pain or tenderness, soft, non distended Extremities: normal range of motion, normal strength, non tender Neuro/Psych: alert and oriented x 3, normal mood and affect Skin: normal color, dry (Angela Castillo CRNP) Laboratory Results Last 24 Hours Test 09/09/17 14:55 09/09/17 17:40 09/09/17 20:58 09/10/17 04:56 White Blood Count 10.23 K/uL 9.87 K/uL Red Blood Count 4.96 M/uL 4.60 M/uL Hemoglobin 14.2 g/dL 13.3 g/dL Hematocrit 42.0 % 39.5 % Mean Corpuscular Volume 84.7 fL 85.9 fL Mean Corpuscular Hemoglobin 28.6 pg 28.9 pg Mean Corpuscular Hemoglobin Concent 33.8 g/dl 33.7 g/dl Platelet Count 207 K/uL 180 K/uL Mean Platelet Volume 10.4 fL 10.4 fL Neutrophils (%) (Auto) 69.3 % 54.2 % Lymphocytes (%) (Auto) 23.9 % 36.6 % Monocytes (%) (Auto) 5.6 % 6.9 % Eosinophils (%) (Auto) 0.6 % 1.7 % Basophils (%) (Auto) 0.2 % 0.2 % Neutrophils # (Auto) 7.09 K/uL 5.35 K/uL Lymphocytes # (Auto) 2.45 K/uL 3.61 K/uL Monocytes # (Auto) 0.57 K/uL 0.68 K/uL Eosinophils # (Auto) 0.06 K/uL 0.17 K/uL Basophils # (Auto) 0.02 K/uL 0.02 K/uL RDW Standard Deviation 43.4 fL 45.1 fL RDW Coefficient of Variation 14.1 % 14.4 % Immature Granulocyte % (Auto) 0.4 % 0.4 % Immature Granulocyte # (Auto) 0.04 K/uL 0.04 K/uL Sodium Level 138 mmol/L 138 mmol/L Potassium Level 3.9 mmol/L 3.7 mmol/L Chloride Level 109 mmol/L 108 mmol/L Carbon Dioxide Level 21 mmol/L 22 mmol/L Anion Gap 8.0 mmol/L 8.0 mmol/L Blood Urea Nitrogen 17 mg/dl 17 mg/dl Creatinine 0.66 mg/dl 0.74 mg/dl Est Creatinine Clear Calc Drug Dose 93.9 ml/min 87.7 ml/min Estimated GFR () 122.8 112.6 Estimated GFR (Non- 105.9 97.2 BUN/Creatinine Ratio 25.3 22.9 Random Glucose 95 mg/dl 101 mg/dl Calcium Level 8.7 mg/dl 8.1 mg/dl Total Bilirubin 0.1 mg/dl Aspartate Amino Transf (AST/SGOT) 12 U/L Alanine Aminotransferase (ALT/SGPT) 31 U/L Alkaline Phosphatase 78 U/L Troponin I < 0.015 ng/ml < 0.015 ng/ml < 0.015 ng/ml Total Protein 7.6 gm/dl Albumin 3.6 gm/dl Globulin 4.0 gm/dl Albumin/Globulin Ratio 0.9 Ethyl Alcohol mg/dL 5.0 mg/dl Urine Color YELLOW Urine Appearance CLEAR Urine pH 5.0 Urine Specific [place] 1.024 Urine Protein NEG Urine Glucose (UA) NEG Urine Ketones NEG Urine Occult Blood 1+ Urine Nitrite NEG Urine Bilirubin NEG Urine Urobilinogen NEG Urine Leukocyte Esterase NEG Urine WBC (Auto) 1-5 /hpf Urine RBC (Auto) 5-10 /hpf Urine Hyaline Casts (Auto) 0 /lpf Urine Epithelial Cells (Auto) 5-10 /lpf Urine Bacteria (Auto) NEG Urine Opiates Screen NEG Urine Methadone, Qualitative NEG Urine Barbiturates NEG Urine Phencyclidine (PCP) Level NEG Ur Amphetamine/Methamphetamine NEG MDMA (Ecstasy) Screen NEG Urine Benzodiazepines Screen POS Urine Cocaine Metabolite NEG Urine Marijuana (THC) POS Estimated Average Glucose 128 mg/dl Hemoglobin A1c 6.1 % Triglycerides Level 198 mg/dl Cholesterol Level 189 mg/dl HDL Cholesterol 36 mg/dl LDL Cholesterol, Calculated 113 mg/dl VLDL Cholesterol, Calculated 40 mg/dl Cholesterol/HDL Ratio 5.3 Test 09/10/17 11:50 Thyroid Stimulating Hormone (TSH) 2.470 uIu/ml Hepatitis B Surface Antigen NEG HIV (1&2) Ab and P24 Ag, 4th Gener NEG (Angela Castillo CRNP) Assessment and Plan Ms. Suarez is a 46 year old woman here for polysubstance abuse and withdrawal Polysubstance abuse and withdrawal - Continue Banana bag daily, MVI, folic acid - Drug tox in process - follow - avoid narcotics and benzodiazepines - Psych consult - Pain management consult - HIV, HepB neg HTN - Chest pain - resolved - Trops trended and negative - Echo with no wma, EF 50% HTN - Continue amlodipine, lisinopril, - patient taking atenolol at home but this is contraindicated with cocaine use - BP continues to be elevated - prn hydralazine Chronic Tobacco Use Marijuana use - cessation encouraged - continue nicotine patch DVT ppx: ambulatory (Angela Castillo CRNP) Attending Attestation: Pt seen/examined, chart reviewed, and care plan d/w TARAH Castillo. I agree w/ the mason components of her documentation. I saw the patient at the same time as Ms. Castillo. We had lengthy discussion about her substance abuse history, subutex, goals for her care, etc. She consented to HIV and Hepatitis testing given her IV drug abuse history. She declined inpatient rehab stating she would return to . exam - gen - anxious neck - no JVD heart - RRR, s1, s2, no murmur lungs - CTA b/l abd - soft, no HSM ext - no tremors A/P: 1. withdrawal from opiates 2. at risk of etoh withdrawal 3. polysubstance abuse including IV drugs 4. uncontrolled HTN - uncertain if due to her essential HTN itself or compounded by withdrawal 5. anxiety 6. tobacco dependence 7. mood d/o - substance induced? BP control; avoid beta blockers due to cocaine abuse HIV, Hepatitis testing MVI/thiamine/folic acid; watch for DTs pain management consult psych consult social media intern consult treat withdrawal sx's (e.g. diarrhea - immodium, anxiety/agitation - clonidine, etc) Scott GONZALEZ MD (Addison Gonzalez MD)
--- NOTE | 2017-09-10 16:00 | Discharge Summary ---
Discharge Summary Date of Service Sep 10, 2017. Discharge Summary Admission Date: Sep 09, 2017 at 17:29 Discharge Disposition: Home Principal Diagnosis: Opioid withdrawal Problems/Secondary Diagnoses: HTN Procedures: CHEST ONE VIEW PORTABLE CLINICAL HISTORY: Chest pain. COMPARISON STUDY: No previous studies for comparison. FINDINGS: Lung volumes are normal. Lungs are clear. No pneumothorax or pleural effusion is present. Pulmonary vascularity is normal. Cardiomediastinal silhouette is normal. IMPRESSION: No acute cardiopulmonary findings. Consultations: Consultation Date of Consultation Sep 10, 2017. Identifying Data 46 her old white female from the [facility] who has a history of drug abuse and hypertension, and presented via EMS with opiate withdrawal and elevated blood pressure. She was admitted to the hospitalist service for a cardiac workup that she reported dysrhythmia on exertion, chest pain, and had EKG changes, and psychiatry is consulted for mood symptoms. Chief Complaint "This withdrawal". History of Present Illness The patient was seen with [place], the psychiatric liaison nurse, and her was present at bedside at her request. She denies any psychiatric history, but reports a long history of substance abuse, starting at age 11, when her older brother used to pay her with beer for watching his kids. She progressed to abusing cocaine, then heroin, and then "any kind of opiate." She claims that she was sober for 7 years, and then started taking Subutex for back pain about 3 years ago. She states she initially attended a Suboxone clinic in [place], [place], and most recently has been going to [facility] outside of [place]. She adamantly denies that she was being prescribed Suboxone for treatment of addiction, and states "it was the only pain medication I could get." She says she decided to take herself off the Suboxone about a month ago, and started weaning herself down over a two- week period, taking her last dose 2 weeks ago. She did this without any input from her prescribing physician, and initially states she decided to stop the medication because her back pain had resolved and she didn't want to take it anymore, but later states that she was told by the Suboxone clinic that she had to change her insurance in order to continue going there, and didn't want to do that, so decided "it's just time to stop it." She began having withdrawal symptoms as soon as she started the taper, and they worsened after she stopped the medication altogether 2 weeks ago. She has been having severe muscle cramping, diarrhea, irritability, nausea, and sleep disturbance. She states that she relapsed over the past week, drinking alcohol every other day (amount unknown per her, but admission note indicates she drank a fifth of whiskey in two days), injected cocaine IV once, snorted cocaine, and obtained Xanax illegally and took several 0.5 mg tablets. She denies that she was having any mood issues prior to stopping the Suboxone, but since stopping it has felt more down. She says "if you were constantly sick, you'd be sad too." She admits to passive suicidal thoughts, but denies plan or intent to harm herself. She states "I just think I'm doomed if my choice is to take this shift or feel like this." No history of psychiatric symptoms other than in the context of substance abuse or withdrawal. She specifically asked EMS to bring her to this hospital, as she does not trust her local hospital. Her drug screen was positive for benzodiazepines, marijuana, and alcohol. Past Psychiatric History Current OP Treatment: no current treatment Prior OP Treatment: therapist (states she saw a therapist whose name she cannot recall several years ago) Prior Psych Hospitalizations: none Suicide Attempts: No Past Medication Trials None Past Medical/Surgical History (1) GERD (gastroesophageal reflux disease) (2) Opiate use (3) Cocaine abuse (4) Benzodiazepine abuse (5) Insomnia (6) Tobacco use disorder (7) Hypertension (8) Chest pain (9) Abnormal EKG (10) Uncontrolled hypertension (11) Opiate withdrawal (12) Withdrawal etoh, cocaine Allergies Allergies: Coded Allergies: No Known Allergies (Verified , 11/11/02) Home Medications Scheduled Albuterol Hfa (Ventolin Hfa), 2 PUFFS INH Q6H Amlodipine Besylate (Amlodipine Besylate), 5 MG PO DAILY Aspirin (Aspirin 81), 81 MG PO DAILY Buprenorphine Hcl (Subutex), 1 TAB SL DAILY Furosemide (Lasix), 40 MG PO three times a week Furosemide (Lasix), 1 TAB PO DAILY Montelukast Sodium (Montelukast Sodium), 1 TAB PO DAILY Multivitamin (Multivitamin), 1 TAB PO DAILY Pantoprazole (Protonix), 10 MG PO DAILY Potassium Chloride (Micro-K Ext Rel Unknown Dose), MEQ PO 3-4 times weekly Ranitidine (Zantac), 150 MG PO DAILY Trazodone Hcl (Trazodone), 50 MG PO HS Scheduled PRN Hydrocodone/Acetaminophen 5MG/325MG ([place] 5MG/325MG), 1 TABLET PO DAILY PRN for Pain Miscellaneous Medications Potassium Ext Rel (Klor-Con), 20 MEQ PO Family History Patient reports no known family medical history. History of Suicide: No Psychiatric History: Yes (father had an unknown mental illness) Patient does not know if there is any family history of substance abuse Alcohol Use Alcohol Use In Past 12 Months: Yes (drink every other day for the past week, cannot clarify amount) Smoking Use Smoking Status: Current Every Day Smoker Substance History Significant substance abuse history, starting with alcohol at age 11, and then progressing to cocaine, heroin, and then "any kind of opiate." Has been on Suboxone for the past 3 years until she weaned herself off of it in July 2017. Has been in substance abuse treatment in the past, including an IOP in [place], and attended AA meetings from 2006 - 2014. Also abuses marijuana. Personal History Lives in: near [place], [place] with her Childhood: 2 - 17-year-old son lives with her and her , also has a 20-year-old daughter. 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 Relationship History: Review of Systems 10 systems reviewed; negative except as stated above. Mental Examination During interview pt is: alert and oriented, cooperative (but irritable edge) Appearance: appropriately dressed, other (appears older than stated age, obese) Eye contact is: fair Motor behavior is: no abnormal motor movements Speech: normal in rate, rhythm & volume, other (irritable tone at times) Affect: irritable Mood is: other ("you'd be sad if he were sick all the time") Thought process: goal directed Thought content: reality based without delusions Suicidal thought are: denied (but has had passive suicidal thoughts in the past week with no plan or intent) Homicidal thoughts are: denied Hallucinations: denies auditory, denies visual Cognition: memory grossly intact, attention grossly intact, language grossly intact Intelligence estimated to be: average Insight: poor Judgement: poor Impression / Recommendations Impression 46-year-old white female with significant substance abuse history but no psychiatric history who presents with poorly controlled hypertension and opiate withdrawal after she took herself off of Suboxone. Her mood symptoms have occurred only in the context of opiate withdrawal and therefore do not meet criteria for clinical depression. Her primary issue is her substance abuse , and she is willing to return to therapy and AA to address that. Risk Factors Assessment : Yes /single/: No Higher / Fall in social status: No Health problems: Yes Mental Health Diagnoses: No Substance use disorders: Yes Previous attempt: No Previous psychiatric stay: No Hopelessness: No Smoker: Yes Protective Factors Assessment : Yes Responsible for young children: Yes Employed: Yes Stable relationships: Yes Supportive family: Yes Recommendations (1) Opiate withdrawal The patient's depressive symptoms occurred only in context of opiate withdrawal , so would not recommend treatment with an antidepressant. We reviewed that this is part of withdrawal, and that she may want to seek treatment if her mood does not improve over the next month. She was also informed of the importance of remaining sober from substances of abuse, as these can contribute to low mood. She signed a release for her Suboxone clinic, and we will get records for collateral information. (2) Withdrawal etoh, cocaine Treatment per primary team. (3) Cocaine abuse Patient has significant substance abuse history, and would not recommend that she be prescribed any controlled substances outside of the hospital. She is willing for a referral for therapy and to return to AA. She has been advised that if she is unable to maintain sobriety on her own, that she should pursue inpatient rehabilitation or intensive outpatient treatment. (4) Benzodiazepine abuse (5) Cannabis abuse Hospital Course Ms. Suarez is a 46 year old woman here for polysubstance abuse and withdrawal. Pmhx of IVDA with heroin, obesity, possible obstructive sleep apnea , anxiety, depression, chronic back pain on subutex who presented with withdrawal symptoms after attempting to wean herself off subutex in the past 2 weeks, starting the week of . The patient noted she has been getting subutex from [facility] for the past several months. Prior to this she had been going to [facility] in [facility]. The patient noted she was tired of being told by providers when she would be allowed her medications, how much, and difficulty with insurance companies covering any or none of the payments for Subutex. The patient began to have withdrawal sx from the medication which included nausea, vomiting, diarrhea, shakes, sweats/chills. At one point in the past week she self medicated by using IV cocaine x 1, and inhalation of cocaine multiple times , taking xanax 0.50 mg at a time at least twice daily (which was obtained through drug dealer as she is not prescribed this), and drinking a 5th of whiskey in 2 days. Her last drink was a 1/2 glass of wine this morning. She typically smokes cigarrettes 1/2 ppd x 15 years, and also uses marijuana for insomnia 1-2x per week. She was having extreme difficulty with insomnia s/p cocain use so also reports using xanax for this. The patient was brought to the ER with withdrawal symptoms again and she was noted to have chest tightness which she related to smoking. She had similar pain like this in the past where it quickly resolved. She denies any sob, flutter, palpitation or headache associated with it at the time. Currently she denies any type of chest pain. Patient left AMA this afternoon Polysubstance abuse and withdrawal - Continued Banana bag daily, MVI, folic acid - Drug tox in process - avoided narcotics and benzodiazepines - Psych consulted - see above note - Pain management consulted - patient left before she could see them - HIV, HepB neg HTN - Chest pain - resolved - Trops trended and negative - Echo with no wma, EF 50% HTN - Continued amlodipine, lisinopril, - patient taking atenolol at home but this is contraindicated with cocaine use - BP continues to be elevated - prn hydralazine Chronic Tobacco Use Marijuana use - cessation encouraged - nicotine patch Attending Attestation & Discharge Note: Pt seen/examined, chart reviewed, care d/w TARAH Castillo. I agree w/ the mason components of her documentation. 46yo female with polysubstance abuse who presented with withdrawal symptoms in the setting of taking herself off her subutex 2 weeks prior. She apparently had had chest tightness in the ER along with EKG ST changes and admission was recommended. During her brief stay serial troponins were negative, echo was normal with intact LV wall motion, and she had no ischemic symptoms while here. She had uncontrolled HTN throughout her stay along with opiate withdrawal symptoms including diarrhea, anxiety, etc. She was seen by psychiatry but unfortunately the patient was not receptive to recommendations (inpatient rehab, etc). On the afternoon of 09/10/17 the patient demanded to be discharged. I personally spoke with the patient at bedside and recommended ongoing hospitalization to treat her withdrawal symptoms, obtain better BP control, and obtain additional consultation by pain management. During this discussion the patient was awake, alert, oriented x 3, and had capacity to make medical decisions for herself. A short time after this conversation the patient signed out AMA. No prescriptions, instructions, or follow-up appts were made given the leaving AMA. Discharge exam - gen - anxious neck - no JVD heart - RRR, s1, s2 lungs - CTA b/l abd - soft, no HSM ext - no edema, no tremors psych - a/o x 3 Addison Gonzalez MD Total Time Spent: Less than 30 minutes This includes examination of the patient, discharge planning, medication reconciliation, and communication with other providers. Discharge Instructions Please refer to the electronic Patient Visit Report (Discharge Instructions) for additional information. Additional Copies To Raffy Xavier D.O.
[2017-09-11] MEDS ORDERED: LISINOPRIL 10 MG TAB PO SCH (09:00)
--- NOTE | 2017-09-12 09:52 | Pain Management Consultation ---
Pain Consultation Date of Service Sep 12, 2017. Pain Consultation The patient left AMA prior to being seen by the pain management service
[2017-09-12 10:04] LABS: HYDROXYETHYLFLURAZEPAM CONF NEGATIVE NG/ML (CUTOFF=50); HYDROXYMIDAZOLAM NEGATIVE NG/ML (CUTOFF=50); HYDROXYTRIAZOLAM CONF NEGATIVE NG/ML (CUTOFF=50); TEMAZEPAM CONF NEGATIVE NG/ML (CUTOFF=50)
== END 2017-09-10 15:13 | disposition left against medical advice (07) ==
LOC: C.EDA 14:25 → MERGE 17:29 → C.2E 17:29 → ENRESERV 18:20
PROVIDERS: ADMIT Internal Medicine; ATTEND Internal Medicine
DX: F11.23 Opioid dependence with withdrawal (principal); I10 Essential (primary) hypertension; K21.9 Gastro-esophageal reflux disease without esophagitis; F14.10 Cocaine abuse, uncomplicated; F19.10 Other psychoactive substance abuse, uncomplicated; F17.200 Nicotine dependence, unspecified, uncomplicated; F12.10 Cannabis abuse, uncomplicated; Z79.82 Long term (current) use of aspirin; E66.9 Obesity, unspecified

== ENCOUNTER 2022-01-22 03:35 | Inpatient (IN) ==
[2022-01-22] MEDS ORDERED: LIDOCAINE 5% 1 PATCH TD STA (04:13)
[2022-01-22] MEDS ORDERED: KETOROLAC TROMETHAMINE 15 MG/ML VIAL IV STA (04:13)
[2022-01-22 05:02] LABS: Basophils # (auto) 0.01 K/uL (0-0.2); Basophils % (auto) 0.1 %; Eosinophils # (auto) 0.01 K/uL (0-0.5); Eosinophils % (auto) 0.1 %; Hematocrit (blood only) 33.9 % (37-47); Hemoglobin 11.3 g/dL (12.0-16.0); Immature Granulocytes # (auto) 0.04 K/uL (0.00-0.02); Immature Granulocytes % (auto) 0.2 %; Lymphocytes # (auto) 1.77 K/uL (1.2-3.4); Lymphocytes % (auto) 10.9 %; Mean Corpuscular Hemoglobin 27.6 pg (25-34); Mean Corpuscular Hgb Conc 33.3 g/dL (32-36); Mean Corpuscular Volume 82.9 fL (80-100); Mean Platelet Volume 10.6 fL (7.4-10.4); Monocytes # (auto) 1.07 K/uL (0.11-0.59); Monocytes % (auto) 6.6 %; Neutrophils # (auto) 13.36 K/uL (1.4-6.5); Neutrophils % (auto) 82.1 %; Platelet Count 246 K/uL (130-400); RDW Coefficient of Variation 15.3 % (11.5-14.5); RDW Standard Deviation 46.6 fL (36.4-46.3); Red Blood Count 4.09 M/uL (4.2-5.4); White Blood Count 16.26 K/uL (4.8-10.8)
[2022-01-22 05:22] LABS: Pregnancy Test, Serum Negative (Negative)
[2022-01-22 05:47] LABS: Alanine Aminotransferase 13 U/L (7-52); Albumin Globulin Ratio 0.8 (0.9-2); Albumin Level 3.7 gm/dl (3.4-5.0); Alkaline Phosphatase 80 U/L (34-104); BUN Creatinine Ratio 33.9 (10-20); Bilirubin,Total 0.4 mg/dl (0.2-1.0); Blood Urea Nitrogen 21 mg/dl (6-23); C Reactive Protein 16.83 mg/dl (0-0.5); Calcium 8.9 mg/dl (8.5-10.1); Carbon Dioxide 26 mmol/L (21-32); Chloride 99 mmol/L (98-107); Est GFR (Non-African American) 104.4 ml/min; Globulin 4.4 gm/dl (2.5-4.0); Glucose 133 mg/dl (70-99(Fasting)); Total Protein 8.1 gm/dl (6.0-8.3)
--- NOTE | 2022-01-22 05:57 | Emergency Department Note ---
Impression & Plan Acute exacerbation of chronic low back pain, Heroin abuse ED Provider Note CHIEF COMPLAINT: Low back pain HISTORY OF PRESENT ILLNESS: This 51-year-old female patient presents to the emergency department via private vehicle accompanied by female complaining of pain in the low back which began about 2 days ago. The pain was gradual in onset, is now constant and worse with movement. She believes the pain began when she fell while carrying groceries, but is unclear whether or not she actu ally fell at that time. She does report a history of chronic low back pain and sciatica. She states the pain feels similar in nature to the pain she experiences with the sciatica. the patient notes the pain as sharp and a 10/10. The patient has taken ibuprofen, muscle relaxers, and heroin without relief of the pain. The patient denies any loss of control of their bowel or bladder functions. There has been no leg numbness or weakness, and no change in sensation. Pain does radiate down the right leg. No nausea or vomiting or abdominal pain. No chest pain or shortness of breath. No dysuria or increased urinary frequency. Patient does admit to IV drug use, heroin, just prior to arrival. REVIEW OF SYSTEMS: A 10 system review of systems was performed with positives and pertinent negatives listed in the history of present illness. All other systems were reviewed and are negative. ALLERGIES: None PHYSICAL EXAM: VITALS: Vitals are noted on the nurse's note and reviewed by myself. Vital signs stable. GENERAL: This is a 51-year-old white female, in no acute distress, nondiaph oretic, well-developed well-nourished. SKIN: The skin was without rashes, erythema, edema, or bruising. Capillary refill less than 2 seconds. NECK: Supple without nuchal rigidity. No cervical spine tenderness. No paraspinous muscle tenderness. HEART: Regular rate and rhythm without murmurs gallops or rubs. LUNGS: Clear to auscultation bilaterally without wheezes, rales or rhonchi. ABDOMEN: Positive bowel sounds x 4. Normal tympanic percussion. Soft, nontender, without masses or organomegaly. Grace sign negative. MUSCULOSKELETAL: No muscle atrophy, erythema, or edema noted of the back. There is no tenderness over the lumbar spinous processes. There is tenderness over the paraspinous muscles on the right. There is tenderness of the right SI joint. There is no tenderness over the thoracic spine or paraspinous muscles. There are no obvious muscle spasms present. The patient is slow to move around with maximum tenderness with sitting from a lying position. Positive bilateral straight leg raise test. NEURO: Patient was alert and oriented to person place and time. Normal sensation to light and sharp touch. Deep tendon reflexes 2+ in the lower extremities. Dorsalis pedis pulse 2+ bilaterally. Strength 5/5 and equal in the bilateral lower extremities. EMERGENCY DEPARTMENT COURSE: The patient was seen and evaluated as above. IV access obtained, labs drawn. MRI ordered due to the patient's complaint of pain out of proportion to presentation, as well as history of IV drug use. Unfortunately, the patient was unable to tolerate the contrast study. Did send the noncontrast images through to be reviewed. There was a delay with the review. The patient did have a leukocytosis of 16,000. Inflammatory markers were elevated. She was medicated here in the ED with IV Toradol and Lidoderm patch. Due to the delay with receiving the MRI report and concern for possible developing infection given the inflammation noted on the study, did recommend proceeding with the contrast study. At this time, the patient was signed out to Marcial Mcdowell PA-C pending repeat MRI with contrast. Please see his dictation regarding ongoing management final disposition of this patient. Differential diagnosis include musculoskeletal, disc herniation, fracture, metastatic disease, cord compression, discitis, sciatica, cauda equina, infection, aortic disease, renal colic, gastrointestinal, as well as other pathologies. I attest that I have personally reviewed the patient's current medication list. Blood Pressure Screening: Patient was found to have a slightly elevated blood pressure due to circumstances. I do not believe that the patient requires hypertension monitoring. The chart was completed utilizing [employer] Speech voice recognition software. Grammatical errors, random word insertions, pronoun errors, and incomplete sentences are an occasional consequence of this system due to software limitations, ambient noise, and hardware issues. Any formal questions or concerns about the content, text, or information contained within the body of this dictation should be directly addressed to the provider for clarification. Past Med/Surg History Medical History Chronic low back pain Heroin abuse Social History Smoking Status: Current every day smoker Hx Alcohol Use: Yes Alcohol type: beer, wine and hard liquor Hx Substance Use: Yes Non-Prescribed Medications: Heroin Last Used Substance: Just Prior to Arrival Substance Use Type Other:: taking lorazepam Preferred Language: Japanese Communication Ability: Effective Chief Gauger Required: No Beliefs That Will Affect Care: None Current Living Situation: Alone Other Information That Helps Us Care for You: No Feels Safe at Home: Yes Safety Concerns: Feels Safe At This Time Assistive Devices: Glasses Allergies Allergies Allergy/AdvReac Type Severity Reaction Status Date / Time No Known Allergies Allergy Verified 11/11/02 19:43 Home Meds Home Medications Medication Instructions Recorded Confirmed hydrochlorothiazide 25 mg tablet 25 mg PO DAILY 01/22/22 01/22/22 lisinopril 40 mg tablet 40 mg PO DAILY 01/22/22 01/22/22 metoprolol succinate 25 mg 25 mg PO DAILY 01/22/22 01/22/22 tablet,extended release 24 hr omeprazole 20 mg capsule,delayed 20 mg PO DAILY 01/22/22 01/22/22 release oxybutynin chloride 10 mg 10 mg PO DAILY 01/22/22 01/22/22 tablet,extended release 24 hr trazodone 50 mg tablet 50 mg PO HS 01/22/22 01/22/22 Results & Data (ED) Vital Signs Vital Signs - 24 hr 01/22/22 03:39 01/22/22 04:41 01/22/22 05:02 Temperature 36.5 C Temperature Source Temporal Artery Scan Pulse Rate 98 H Pulse Rate [Right Radial] Pulse Rhythm [Right Radial] Pulse Strength [Right Radial] Respiratory Rate 18 22 Respiratory Effort / Characteristics Non-Labored Spontaneous Respiratory Depth Normal Respiratory Pattern Blood Pressure 151/73 H Blood Pressure [Right Arm] 153/70 H Blood Pressure Mean 99 Blood Pressure Mean [Right Arm] 97 Blood Pressure Position [Right Arm] Pulse Oximetry 97 95 95 Oxygen Delivery Method Room Air Room Air Sepsis New/Unexplained Change in Mental Status N/A Sepsis Action Taken by Nursing No Action Required 01/22/22 07:00 01/22/22 08:06 01/22/22 09:00 Temperature Temperature Source Pulse Rate Pulse Rate [Right Radial] 89 82 Pulse Rhythm [Right Radial] Regular Regular Pulse Strength [Right Radial] Normal Normal Respiratory Rate 17 16 Respiratory Effort / Characteristics Non-Labored Spontaneous Non-Labored Spontaneous Respiratory Depth Normal Normal Respiratory Pattern Regular Regular Blood Pressure Blood Pressure [Right Arm] 177/85 H 169/98 H Blood Pressure Mean Blood Pressure Mean [Right Arm] 115 121 Blood Pressure Position [Right Arm] Lying Lying Pulse Oximetry 98 95 99 Oxygen Delivery Method Room Air Room Air Room Air Sepsis New/Unexplained Change in Mental Status Sepsis Action Taken by Nursing 01/22/22 10:24 01/22/22 12:00 Temperature Temperature Source Pulse Rate Pulse Rate [Right Radial] 101 H 68 Pulse Rhythm [Right Radial] Regular Regular Pulse Strength [Right Radial] Normal Respiratory Rate 18 20 Respiratory Effort / Characteristics Non-Labored Spontaneous Non-Labored Respiratory Depth Normal Normal Respiratory Pattern Regular Regular Blood Pressure Blood Pressure [Right Arm] 165/80 H 173/82 H Blood Pressure Mean Blood Pressure Mean [Right Arm] 108 112 Blood Pressure Position [Right Arm] Lying Lying Pulse Oximetry 99 95 Oxygen Delivery Method Room Air Room Air Sepsis New/Unexplained Change in Mental Status Sepsis Action Taken by Nursing Laboratory Data Result diagrams: 01/22/22 04:38 01/22/22 04:38 Lab Results 01/22/22 01/22/22 01/22/22 Range/Units 04:38 04:38 04:38 WBC 16.26 H (4.8-10.8) K/uL RBC 4.09 L (4.2-5.4) M/uL Hgb 11.3 L (12.0-16.0) g/dL Hct 33.9 L (37-47) % MCV 82.9 (80-100) fL MCH 27.6 (25-34) pg MCHC 33.3 (32-36) g/dL RDW Std Deviation 46.6 H (36.4-46.3) fL RDW Coeff of [place] 15.3 H (11.5-14.5) % Plt Count 246 (130-400) K/uL MPV 10.6 H (7.4-10.4) fL Immature Gran % (Auto) 0.2 % Neut % (Auto) 82.1 % Lymph % (Auto) 10.9 % [place] % (Auto) 6.6 % Eos % (Auto) 0.1 % Baso % (Auto) 0.1 % Neut # (Auto) 13.36 H (1.4-6.5) K/uL Lymph # (Auto) 1.77 (1.2-3.4) K/uL [place] # (Auto) 1.07 H (0.11-0.59) K/uL Eos # (Auto) 0.01 (0-0.5) K/uL Baso # (Auto) 0.01 (0-0.2) K/uL Immature Gran # (Auto) 0.04 H (0.00-0.02) K/uL ESR (0-30) mm/hr Sodium 133 L (136-145) mmol/L Potassium 4.3 (3.5-5.1) mmol/L Chloride 99 (98-107) mmol/L Carbon Dioxide 26 (21-32) mmol/L Anion Gap 8 (3-11) BUN 21 (6-23) mg/dl Creatinine 0.62 (0.6-1.2) mg/dl Est Cr Clr Drug Dosing Not Reportable Est GFR ( Amer) 121.0 ml/min Est GFR (Non-Af Amer) 104.4 ml/min BUN/Creatinine Ratio 33.9 H (10-20) Glucose 133 H (70-99(Fasting)) mg/dl Lactate (0.4-2.0) mmol/L Calcium 8.9 (8.5-10.1) mg/dl Total Bilirubin 0.4 (0.2-1.0) mg/dl AST 14 (13-39) U/L ALT 13 (7-52) U/L Alkaline Phosphatase 80 (34-104) U/L C-Reactive Protein 16.83 H (0-0.5) mg/dl Total Protein 8.1 (6.0-8.3) gm/dl Albumin 3.7 (3.4-5.0) gm/dl Globulin 4.4 H (2.5-4.0) gm/dl Albumin/Globulin Ratio 0.8 L (0.9-2) Procalcitonin (0-0.5) ng/ml HCG, Qual Negative (Negative) 01/22/22 01/22/22 01/22/22 Range/Units 08:30 08:30 08:30 WBC (4.8-10.8) K/uL RBC (4.2-5.4) M/uL Hgb (12.0-16.0) g/dL Hct (37-47) % MCV (80-100) fL MCH (25-34) pg MCHC (32-36) g/dL RDW Std Deviation (36.4-46.3) fL RDW Coeff of [place] (11.5-14.5) % Plt Count (130-400) K/uL MPV (7.4-10.4) fL Immature Gran % (Auto) % Neut % (Auto) % Lymph % (Auto) % [place] % (Auto) % Eos % (Auto) % Baso % (Auto) % Neut # (Auto) (1.4-6.5) K/uL Lymph # (Auto) (1.2-3.4) K/uL [place] # (Auto) (0.11-0.59) K/uL Eos # (Auto) (0-0.5) K/uL Baso # (Auto) (0-0.2) K/uL Immature Gran # (Auto) (0.00-0.02) K/uL ESR 87 H (0-30) mm/hr Sodium (136-145) mmol/L Potassium (3.5-5.1) mmol/L Chloride (98-107) mmol/L Carbon Dioxide (21-32) mmol/L Anion Gap (3-11) BUN (6-23) mg/dl Creatinine (0.6-1.2) mg/dl Est Cr Clr Drug Dosing Est GFR ( Amer) ml/min Est GFR (Non-Af Amer) ml/min BUN/Creatinine Ratio (10-20) Glucose (70-99(Fasting)) mg/dl Lactate 0.8 (0.4-2.0) mmol/L Calcium (8.5-10.1) mg/dl Total Bilirubin (0.2-1.0) mg/dl AST (13-39) U/L ALT (7-52) U/L Alkaline Phosphatase (34-104) U/L C-Reactive Protein (0-0.5) mg/dl Total Protein (6.0-8.3) gm/dl Albumin (3.4-5.0) gm/dl Globulin (2.5-4.0) gm/dl Albumin/Globulin Ratio (0.9-2) Procalcitonin 0.16 (0-0.5) ng/ml HCG, Qual (Negative) Administered Medications Cefepime HCl 2,000 mg/ Syringe 20 mls @ 5 mls/min IV Q8H [facility]; Protocol Stop: 03/05/22 18:59 Last Admin: 01/22/22 20:25 Dose: 5 mls/min Documented by: [id number] Vancomycin HCl 1,250 mg/ (Sodium Chloride) 275 mls @ 200 mls/hr IV Q12H [facility] Stop: 03/05/22 21:59 Last Infusion: 01/22/22 23:49 Dose: 0 mls/hr Documented by: [id number] Admin: 01/22/22 22:14 Dose: 200 mls/hr Documented by: [id number] Ketorolac Tromethamine (Ketorolac Tromethamine 15 Mg/Ml Vial) 15 mg IV Q6H PRN PRN Reason: Pain Stop: 01/25/22 15:45 Last Admin: 01/22/22 22:31 Dose: 15 mg Documented by: [id number] Admin: 01/22/22 16:33 Dose: 15 mg Documented by: [id number] Miscellaneous (Remove Lidoderm Patch) 1 ea N/A DAILY@2100 [facility] Stop: 02/21/22 20:59 Last Admin: 01/22/22 20:25 Dose: Not Given Documented by: [id number] Nicotine (Nicotine 21 Mg/24 Hr Tdsy) 21 mg TD QAM [facility] Stop: 02/21/22 15:59 Last Admin: 01/22/22 16:33 Dose: 21 mg Documented by: [id number] Oxycodone/Acetaminophen (Oxycodone/Acetaminophen 5mg/325mg Tab) 1 tab PO Q4H PRN PRN Reason: Pain Stop: 02/05/22 15:42 Last Admin: 01/22/22 20:28 Dose: 1 tab Documented by: [id number] Discontinued Medications Clonidine HCl (Clonidine Hcl 0.1 Mg Tab) 0.1 mg PO NOW ONE Stop: 01/22/22 23:41 Last Admin: 01/22/22 23:58 Dose: 0.1 mg Documented by: [id number] Gadobutrol (Gadobutrol 65ml Vial) 7 ml IV ONCE ONE Stop: 01/22/22 09:44 Last Admin: 01/22/22 09:43 Dose: 7 ml Documented by: [id number] Cefepime HCl (Maxipime) 20 mls @ 5 mls/min IV NOW ONE Stop: 01/22/22 10:48 Last Admin: 01/22/22 11:25 Dose: 5 mls/min Documented by: [id number] Vancomycin HCl 1,750 mg/ (Sodium Chloride) 535 mls @ 200 mls/hr IV NOW ONE Stop: 01/22/22 13:40 Last Infusion: 01/22/22 14:08 Dose: 0 mls/hr Documented by: [id number] Admin: 01/22/22 11:25 Dose: 200 mls/hr Documented by: [id number] Ketorolac Tromethamine (Ketorolac Tromethamine 15 Mg/Ml Vial) 10 mg IV ONE STA Stop: 01/22/22 04:14 Last Admin: 01/22/22 04:36 Dose: 10 mg Documented by: [id number] Lidocaine (Lidocaine 5% 1 Patch) 1 patch TD NOW STA Stop: 01/22/22 04:14 Last Admin: 01/22/22 04:37 Dose: 1 patch Documented by: [id number] Morphine Sulfate (Morphine Sulfate 4 Mg/Ml 1 Ml Carp\Vial) 4 mg IV NOW STA Stop: 01/22/22 11:21 Last Admin: 01/22/22 11:42 Dose: 4 mg Documented by: [id number] Ondansetron HCl (Ondansetron Inj 2 Mg/Ml 2 Ml Vial) 4 mg IV NOW STA Stop: 01/22/22 11:21 Last Admin: 01/22/22 11:42 Dose: 4 mg Documented by: [id number] Imaging Data Radiologist's Impression: Lumbar Spine MRI 01/22/22 04:13 MRI OF THE LUMBAR SPINE WITHOUT CONTRAST CLINICAL HISTORY: Back pain. COMPARISON STUDY: Lumbar spine MRI April 19, 2014. TECHNIQUE: Utilizing a 1.5 Licha magnet and dedicated coil, multiplanar, multiecho imaging of the lumbar spine was performed without IV contrast. FINDINGS: For purposes of numbering on this exam, the L5-S1 disc space is assigned to axial image 23 of 25. There is 7 mm of anterolisthesis of L4 on L5 due to facet arthrosis. This has slightly increased since MRI of April 19, 2014. Vertebral bod y heights are maintained. No intracanalicular mass or fluid collection is identified. The conus terminates at the lower L1 level. Note is made of mild paravertebral edema at the L5 and S1 levels. No fluid collection is identified on this unenhanced examination. Tortuosity/redundancy of the nerve roots is noted due to severe central canal stenosis. There is severe multilevel facet arthrosis and degenerative disc disease within the lumbar spine. Multifocal marrow signal abnormality is present. This is likely discogenic at the L1-L2 and L2-L3 levels. Marrow signal abnormality within the L4 and L5 vertebral bodies is nonspecific. This is greatest within the L5 vertebral body. There is slight inc reased fluid signal within the L4-L5 disc. L1-2: There is moderate disc space narrowing. There is disc bulge with a superimposed left paracentral small disc extrusion with superior subligamentous migration. There is facet arthrosis. Central canal is patent. There is mild na rrowing of the left lateral recess and moderate narrowing of the left neural foramen. Right neural foramen is patent L2-3: Marked disc space narrowing is noted. There is a central disc extrusion with inferior subligamentous migration that measures 1.3 x 0.5 cm. There is mod erate central canal stenosis. Moderate right and mild left neural foraminal stenosis is present. Facet arthrosis is noted at this level. L3-4: There is moderate disc space narrowing. There is disc bulge, ligamentous hypertrophy and facet arthrosis which result in moderate to severe central canal stenosis. Patent AP diameter of the canal is 4.5 mm. There is moderate bilateral neural foraminal stenosis. L4-5: Anterolisthesis is noted with uncovering of the disc and associated central disc extrusion with superior subligamentous migration. There is severe facet arthrosis and ligamentous hypertrophy. Severe central canal stenosis is noted. Patent AP diameter of the canal is 3 mm. There is severe narrowing of both lateral recesses and moderate to severe narrowing of both neural foramen. L5-S1: Facet arthrosis is present. Small right paracentral disc protrusion is noted. Central canal is patent. There is mild bilateral neural foraminal stenosis. IMPRESSION: 1. Severe multilevel degenerative disc disease and facet arthrosis within the lumbar spine, most pronounced at L4-L5. Severe central canal stenosis at this level due to grade II anterolisthesis, central disc extrusion, facet arthrosis and ligamentous hypertrophy. Moderate to severe central canal stenosis at L3-L4 and moderate central canal stenosis at L2-L3 due to a central disc extrusion with inferior subligamentous migration. The central canal stenosis results in redundancy/tortuosity of the nerve roots. 2. Heterogeneous marrow signal throughout the lumbar spine. At most levels, this is likely discogenic. However, marrow edema at the L4-L5 level is nonspecific and could be degenerative or due to an infectious process with osteomyelitis given slight increased fluid signal within the L4-L5 disc. Therefore, early discitis cannot be excluded, particularly given paravertebral edema. No epidural fluid collection identified on this exam. If suspicion for an infectious process, short-term follow-up MRI of the lumbar spine with and without contrast is recommended. 3. Multilevel neural foraminal stenosis, as detailed above. ACT 112: Negative or not required by law. Electronically signed by: Rd Thomas M.D. 01/22/2022 8:12 AM Discharge Plan Visit Data Chief Complaint: Back Injury/Pain Stated Complaint: SIATIC NERVE - SWELLING/PAIN IN LEGS AND UP BACK ED Provider: Virgilio Yang ED Midlevel Provider: Marcial Mcdowell Discharge Problem: Acute exacerbation of chronic low back pain, Heroin abuse Patient Disposition: Admitted As Inpatient Discharge Instructions Interventions: ED Discharge Assessment Last Done: 01/22/22 15:07
[2022-01-22 06:03] LABS: Anion Gap 8 (3-11); Aspartate Aminotransferase 14 U/L (13-39); Potassium 4.3 mmol/L (3.5-5.1)
[2022-01-22 06:04] LABS: Sodium 133 mmol/L (136-145)
--- NOTE | 2022-01-22 08:07 | Emergency Department Note ---
ED Visit Note I received the patient in signout on 01/22/2022 at 0755 AM. MRI was read by our overnight radiology service, stat read. Case signed out pending further work-up here. In-house radiology service then read the study. I reviewed these findings. Patient presentation and laboratory studies are concerning for potential infectious etiology. I recommended contrasted study as was recommended earlier that the patient was unable to secondary to pain while laying in the MRI machine. Patient amenable to proceeding. Blood cultures, Pro-Xavier added. There is leukocytosis 16.26. Mild anemia noted. Inflammatory markers are significantly elevated. Mild hyponatremia 133. Pro-Xavier 0.16. Blood cultures pending. Patient's lactate is normal. Urinalysis is without evidence of infection. MRI of the L-spine then was performed with intravenous contrast. With the patient's clinical presentation I do believe that empiric antibiotics is warranted. IV cefepime and IV vancomycin were also ordered. I do believe that further evaluation and management in the inpatient setting is warranted. Case discussed with the hospitalist. I spoke with Kika corcoran NP. It was recommended that I discuss the case with spine. outcomes specialist not on- call here at our facility today. I then discussed this with the neurosurgeon for spine at [facility]. This was Dr. Peralta. Patient does not have any deficits. No abscess by imaging. She is afebrile here. At the present time she is not felt to require any surgical intervention. It was recommended to consider biopsy of the area. I then discussed this with our radiologist here. We will proceed with antibiotics at the present time and trend blood cultures. I then discussed this with the hospitalist. Patient will be admitted for further evaluation and management. Please refer to further documentation regarding her stay. While she was here she was medicated with morphine and Zofran for pain/nausea. She was monitored hemodynamically throughout her stay. At no point did she develop any deficits or findings to suggest cauda equina syndrome or neurovascular compromise. ADDENDUM Addendum: The patient return for postcontrast imaging. T1 pre and postcontrast imaging was performed. Intravenous injection of 7 cc of Gadavist was uneventful. Post contrast images demonstrate no epidural or paraspinal fluid collection to suggest an abscess. However, there is edema and enhancement adjacent to the lower lumbar spine and upper sacrum, greater on the right. No associated fluid collection is present. The etiology for this edema and enhancement is not clear on this exam however an infectious process is within the differential, as described in the initial report. This finding was discussed with Marcial Mcdowell at time of addendum. Electronically signed by: Rd Thomas M.D. 01/22/2022 10:26 AM ADDENDUM END MRI OF THE LUMBAR SPINE WITHOUT CONTRAST CLINICAL HISTORY: Back pain. COMPARISON STUDY: Lumbar spine MRI April 19, 2014. TECHNIQUE: Utilizing a 1.5 Licha magnet and dedicated coil, multiplanar, multiecho imaging of the lumbar spine was performed without IV contrast. FINDINGS: For purposes of numbering on this exam, the L5-S1 disc space is assigned to axial image 23 of 25. There is 7 mm of anterolisthesis of L4 on L5 due to facet arthrosis. This has slightly increased since MRI of April 19, 2014. Vertebral body heights are maintained. No intracanalicular mass or fluid collection is identified. The conus terminates at the lower L1 level. Note is made of mild paravertebral edema at the L5 and S1 levels. No fluid collection is identified on this unenhanced examination. Tortuosity/redundancy of the nerve roots is noted due to severe central canal stenosis. There is severe multilevel facet arthrosis and degenerative disc disease within the lumbar spine. Multifocal marrow signal abnormality is present. This is likely discogenic at the L1-L2 and L2-L3 levels. Marrow signal abnormality within the L4 and L5 vertebral bodies is nonspecific. This is greatest within the L5 vertebral body. There is slight increased fluid signal within the L4-L5 disc. L1-2: There is moderate disc space narrowing. There is disc bulge with a superimposed left paracentral small disc extrusion with superior subligamentous migration. There is facet arthrosis. Central canal is patent. There is mild narrowing of the left lateral recess and moderate narrowing of the left neural foramen. Right neural foramen is patent L2-3: Marked disc space narrowing is noted. There is a central disc extrusion with inferior subligamentous migration that measures 1.3 x 0.5 cm. There is moderate central canal stenosis. Moderate right and mild left neural foraminal stenosis is present. Facet arthrosis is noted at this level. L3-4: There is moderate disc space narrowing. There is disc bulge, ligamentous hypertrophy and facet arthrosis which result in moderate to severe central canal stenosis. Patent AP diameter of the canal is 4.5 mm. There is moderate bilateral neural foraminal stenosis. L4-5: Anterolisthesis is noted with uncovering of the disc and associated central disc extrusion with superior subligamentous migration. There is severe facet arthrosis and ligamentous hypertrophy. Severe central canal stenosis is noted. Patent AP diameter of the canal is 3 mm. There is severe narrowing of both lateral recesses and moderate to severe narrowing of both neural foramen. L5-S1: Facet arthrosis is present. Small right paracentral disc protrusion is noted. Central canal is patent. There is mild bilateral neural foraminal stenosis. IMPRESSION: 1. Severe multilevel degenerative disc disease and facet arthrosis within the lumbar spine, most pronounced at L4-L5. Severe central canal stenosis at this level due to grade II anterolisthesis, central disc extrusion, facet arthrosis and ligamentous hypertrophy. Moderate to severe central canal stenosis at L3-L4 and moderate central canal stenosis at L2-L3 due to a central disc extrusion with inferior subligamentous migration. The central canal stenosis results in redundancy/tortuosity of the nerve roots. 2. Heterogeneous marrow signal throughout the lumbar spine. At most levels, this is likely discogenic. However, marrow edema at the L4-L5 level is nonspecific and could be degenerative or due to an infectious process with osteomyelitis given slight increased fluid signal within the L4-L5 disc. Therefore, early discitis cannot be excluded, particularly given paravertebral edema. No epidural fluid collection identified on this exam. If suspicion for an infectious process, short-term follow-up MRI of the lumbar spine with and without contrast is recommended. 3. Multilevel neural foraminal stenosis, as detailed above. ACT 112: Negative or not required by law. Electronically signed by: Rd Thomas M.D. 01/22/2022 8:12 AM .
--- NOTE | 2022-01-22 08:13 | Magnetic Resonance Report ---
MRI OF THE LUMBAR SPINE WITHOUT CONTRAST CLINICAL HISTORY: Back pain. COMPARISON STUDY: Lumbar spine MRI April 19, 2014. TECHNIQUE: Utilizing a 1.5 Licha magnet and dedicated coil, multiplanar, multiecho imaging of the [facility] spine was performed without IV contrast. FINDINGS: For purposes of numbering on this exam, the L5-S1 disc space is assigned to axial image 23 of 25. The re is 7 mm of anterolisthesis of L4 on L5 due to facet arthrosis. This has slightly increased since M RI of April 19, 2014. Vertebral body heights are maintained. No intracanalicular mass or fluid collect ion is identified. The conus terminates at the lower L1 level. Note is made of mild paravertebral shari ma at the L5 and S1 levels. No fluid collection is identified on this unenhanced examination. Tortuos ity/redundancy of the nerve roots is noted due to severe central canal stenosis. There is severe mult ilevel facet arthrosis and degenerative disc disease within the lumbar spine. Multifocal marrow signa l abnormality is present. This is likely discogenic at the L1-L2 and L2-L3 levels. Marrow signal abno rmality within the L4 and L5 vertebral bodies is nonspecific. This is greatest within the L5 vertebra l body. There is slight increased fluid signal within the L4-L5 disc. L1-2: There is moderate disc space narrowing. There is disc bulge with a superimposed left paracentra l small disc extrusion with superior subligamentous migration. There is facet arthrosis. Central juliocesar l is patent. There is mild narrowing of the left lateral recess and moderate narrowing of the left ne ural foramen. Right neural foramen is patent L2-3: Marked disc space narrowing is noted. There is a central disc extrusion with inferior subligame ntous migration that measures 1.3 x 0.5 cm. There is moderate central canal stenosis. Moderate right and mild left neural foraminal stenosis is present. Facet arthrosis is noted at this level. L3-4: There is moderate disc space narrowing. There is disc bulge, ligamentous hypertrophy and facet arthrosis which result in moderate to severe central canal stenosis. Patent AP diameter of the canal is 4.5 mm. There is moderate bilateral neural foraminal stenosis. L4-5: Anterolisthesis is noted with uncovering of the disc and associated central disc extrusion with superior subligamentous migration. There is severe facet arthrosis and ligamentous hypertrophy. Chikis re central canal stenosis is noted. Patent AP diameter of the canal is 3 mm. There is severe narrowin g of both lateral recesses and moderate to severe narrowing of both neural foramen. L5-S1: Facet arthrosis is present. Small right paracentral disc protrusion is noted. Central canal is patent. There is mild bilateral neural foraminal stenosis. IMPRESSION: 1. Severe multilevel degenerative disc disease and facet arthrosis within the lumbar spine, most pron ounced at L4-L5. Severe central canal stenosis at this level due to grade II anterolisthesis, central disc extrusion, facet arthrosis and ligamentous hypertrophy. Moderate to severe central canal stenos is at L3-L4 and moderate central canal stenosis at L2-L3 due to a central disc extrusion with inferio r subligamentous migration. The central canal stenosis results in redundancy/tortuosity of the nerve roots. 2. Heterogeneous marrow signal throughout the lumbar spine. At most levels, this is likely discogenic . However, marrow edema at the L4-L5 level is nonspecific and could be degenerative or due to an infe ctious process with osteomyelitis given slight increased fluid signal within the L4-L5 disc. Therefor e, early discitis cannot be excluded, particularly given paravertebral edema. No epidural fluid colle ction identified on this exam. If suspicion for an infectious process, short-term follow-up MRI of th e lumbar spine with and without contrast is recommended. 3. Multilevel neural foraminal stenosis, as detailed above. ACT 112: Negative or not required by law. Electronically signed by: Rd Thomas M.D. 01/22/2022 8:12 AM
[2022-01-22] MEDS ORDERED: GADOBUTROL 65ML VIAL IV ONE (09:43)
[2022-01-22] MEDS ORDERED: CEFEPIME 20 ML IV ONE (10:45)
[2022-01-22] MEDS ORDERED: VANCOMYCIN HCL 1,750 MG in SODIUM CHLORIDE 0.9% 500 ML IV ONE (11:00)
[2022-01-22] MEDS ORDERED: MoRPHine SULFATE 4 MG/ML 1 ML CARP\\VIAL IV STA (11:20)
[2022-01-22] MEDS ORDERED: ONDANSETRON INJ 2 MG/ML 2 ML VIAL IV STA (11:20)
[2022-01-22] MEDS ORDERED: ACETAMINOPHEN 325 MG TAB PO PRN (12:55)
[2022-01-22 14:55] LABS: Appearance Urine Clear (Clear); Bacteria Urine Automated Negative (Negative); Bilirubin Urine Negative (Negative); Blood Urine Negative (Negative); Cast Urine Automated 0 /lpf (0-5); Color Urine Yellow; Glucose Urine UA Trace (Negative); Ketones Urine Negative (Negative); Leukocyte Esterase Urine Negative (Negative); Nitrite Urine Negative (Negative); Specific Gravity Urine 1.017 (1.000-1.030); Urobilinogen Urine Negative (Negative); pH Urine 7.5 (4.5-7.5)
[2022-01-22 14:58] LABS: Protein Urine Trace (Negative)
[2022-01-22 15:18] LABS: RBC Urine Automated 0-4 /hpf (0-4)
[2022-01-22 15:38] LABS: Amphetamines+Metham, Urine Pos (Neg); Barbiturates, Urine Neg (Neg); Benzodiazepine, Urine Neg (Neg); Cocaine, Urine Pos (Neg); MDMA (Ecstacy), Urine Pos (Neg); Methadone, Urine Neg (Neg); Opiate, Urine Pos (Neg); Phencyclidine, Urine Neg (Neg)
[2022-01-22] MEDS ORDERED: VANCOMYCIN CONSULT ACTIVE PRN (15:43)
--- NOTE | 2022-01-22 16:06 | Communication Note ---
Date of Service: January 22, 2022 51-year-old female with history of heroin abuse and tobacco abuse presents with vertebral osteomyelitis. She reports back pain since yesterday, gradual in onset and now constant and worse with movement she injects heroin 2-3 times daily. She denies any fevers, chills, chest pain, trouble breathing. She is restless and tachycardic. She admitted to IV drug use just prior to arrival per ER staff note. Overnight she underwent an lumbar MRI revealing evidence of possible vertebral osteomyelitis. She was started empirically on vancomycin and cefepime. Lab work reveals leukocytosis of 16,000, anemia with H&H 11.3/34, elevated inflammatory markers including ESR 87 and a CRP of 17. Kidney function and liver function appear within normal limits. BMP is normal aside from a sodium of 133. Lactate is 0.8, procalcitonin 0.16, test is negative. Urinalysis does not reflect evidence of infection. Urine drug screen is still pending but positive for opiates and methamphetamine and MDMA, cocaine and marijuana positive so far. Blood cultures are pending. Physical exam reveals a well-nourished well-developed female who is writhing around the bed in pain. Skin is warm and dry with no evidence of diaphoresis and injection harding are noted on the left upper extremity. There is a circular golf size slightly raised erythematous rash on her left lower back. Poor dentition. Cardiac exam reveals S1/S2 heard with no evidence of murmurs gallops or rubs. There is no peripheral edema and heart rate is tachycardic but regular rhythm. She has no evidence of Janeway lesions. There is no evidence of paraspinal muscle tenderness to palpation. No gross focal neurologic deficits. Appears hyper irritable but can fall asleep easily. In the ER today she has received Toradol, lidocaine patch, vancomycin, cefepime and morphine 4 mg IV. She is also had Zofran. Nurse reports she continually asks for morphine IV. She is slightly hypertensive with a blood pressure 172/92 and a heart rate of 90. She is oxygenating well on room air. This patient has likely vertebral osteomyelitis/discitis with no clear evidence of spinal abscess on MRI. Potential source of infection includes the skin from IV drug use. There is no evidence of infection respiratory tract infection or infective endocarditis at this time. Echocardiogram is pending, blood cultures are pending. Agree with infectious disease consult and continuation of broad-spectrum empiric antibiotics pending culture results and clinical improvement. Obviously, heroin withdrawal may cause her to leave AGAINST MEDICAL ADVICE but will try to temper the symptoms as much as possible with Toradol, oral Percocet, antihistamines as needed and/or Tylenol. Continue to monitor in PCU setting. Sachin,
[2022-01-22] MEDS: NICOTINE 21 MG/24 HR TDSY TD SCH (16:33)
[2022-01-22] MEDS: KETOROLAC TROMETHAMINE 15 MG/ML VIAL IV PRN ×2 (16:33→22:31)
--- NOTE | 2022-01-22 17:25 | History & Physical Report ---
Date of Service January 22, 2022 Assessment & Plan (1) Acute exacerbation of chronic low back pain: Plan: MRI findings concerning for potential early discitis/osteomyelitis. Admit for further evaluation and IV antibiotics - Broad-spectrum antibiotics started in the ED - cefepime/vancomycin - will continue for now - Blood cultures pending - Consult infectious disease for additional recommendations - Checking ECHO to r/o endocarditis (2) Heroin abuse: Plan: Pt currently using 25-30 bags of heroin per day. Appears to be developing withdrawal symptoms when seen in the ED. - Monitor in PCU - On a 1:1 for now - Check urine drug screen (3) Leukocytosis: (4) GERD (gastroesophageal reflux disease): (5) Hypertension: (6) Vertebral osteomyelitis: Plan: Continue other home medications as appropriate. Pt seen and reviewed with collaborating physician, Dr. Stephenson. Plan of care discussed and as outlined above. Code status: full code DVT Prophylaxis: Flower Sorto PA-C Admission and Anticipated Discharge Date Admission Date: January 22, 2022 History of Present Illness Chief Complaint: Back Pain Primary Care Provider: Vidal Amador MD This is a 51 y/o female with a hx of HTN, GERD, heroin use, and chronic back pain who presented to the ED early this morning with acute worsening of chronic back pain. History from the patient when seen was somewhat vague so her outpatient records and ED notes were extensively reviewed to help provide additional information. Pt reports ongoing issues with chronic back pain that has intermittent flared previously but current episode is more severe - she does not recall an inciting event and is unsure when specifically the pain got worse. She reports that she has been taking ibuprofen 800 mg and using heroin for the pain, which previously seemed to help but more recently has not alleviated her symptoms. She reports that currently she is using 25-30 bags of heroin per day with last use just before arrival in the ED. She denies loss of control of bowels or bladder. Pain may radiate down her legs but she denies loss of function. Allergies Allergy/AdvReac Type Severity Reaction Status Date / Time No Known Allergies Allergy Verified 11/11/02 19:43 Home Medications Medication Instructions Recorded Confirmed Type hydrochlorothiazide 25 mg tablet 25 mg PO DAILY 01/22/22 01/22/22 History lisinopril 40 mg tablet 40 mg PO DAILY 01/22/22 01/22/22 History metoprolol succinate 25 mg 25 mg PO DAILY 01/22/22 01/22/22 History tablet,extended release 24 hr omeprazole 20 mg capsule,delayed 20 mg PO DAILY 01/22/22 01/22/22 History release oxybutynin chloride 10 mg 10 mg PO DAILY 01/22/22 01/22/22 History tablet,extended release 24 hr trazodone 50 mg tablet 50 mg PO HS 01/22/22 01/22/22 History Past Med/Surg History Medical History Chronic low back pain Heroin abuse Social History Smoking Status: Current every day smoker Hx Alcohol Use: Yes Alcohol type: beer, wine and hard liquor Hx Substance Use: Yes Non-Prescribed Medications: Heroin Last Used Substance: Just Prior to Arrival Substance Use Type Other:: taking lorazepam Preferred Language: Yi Communication Ability: Effective Bond Analyst Required: No Beliefs That Will Affect Care: None Current Living Situation: Alone Other Information That Helps Us Care for You: No Feels Safe at Home: Yes Safety Concerns: Feels Safe At This Time Assistive Devices: Glasses Review of Systems Review of Systems: All systems reviewed & are unremarkable except as noted in HPI & below Constitutional: + fatigue; no fever and no chills Respiratory: no chest congestion and no dyspnea Cardiovascular: no chest pain, no palpitations and no syncope Gastrointestinal: + vomiting; no abdominal pain and no blood in stools Genitourinary: no dysuria and no hematuria Musculoskeletal: + back pain and + radicular pain Integumentary: no yellowing of the skin Neurologic: + lack of coordination, + dizziness and + headache(s) Physical Exam Constitutional: + disheveled agitated, writhing around in the bed, found lying in the bed without clothing on Eyes: + anicteric sclerae Neck: trachea midline Respiratory: no respiratory distress Auscultation: lungs clear to auscultation bilaterally; no rales, no rhonchi and no wheezes Cardiovascular: Rate/Rhythm: regular rhythm and + tachycardic Gastrointestinal (Abdomen): Inspection/Auscultation: normal bowel sounds; abdomen not distended Percussion/Palpation: abdomen soft Musculoskeletal: no spinous process tenderness, mild lumbar paraspinal tenderness Skin: injection harding noted LUE, no jaundice Neurologic: moves all extremities; no focal motor deficits negative Babinski, Achilles reflex 2+ and equal [place] strength equal Results & Data Results & Data ([facility]) Vital Signs (Past 12 Hours) Vital Signs Temp Pulse Pulse Resp BP BP Pulse Ox 01/22/22 15:37 36.7 C 90 20 171/92 H 95 01/22/22 15:07 105 H 22 149/76 H 93 01/22/22 14:00 74 20 97 01/22/22 12:00 68 20 173/82 H 95 01/22/22 10:24 101 H 18 165/80 H 99 01/22/22 09:00 82 16 169/98 H 99 01/22/22 08:06 95 01/22/22 07:00 89 17 177/85 H 98 Laboratory Results Laboratory Results - last 24 hr 01/22/22 01/22/22 01/22/22 04:38 04:38 04:38 WBC 16.26 H RBC 4.09 L Hgb 11.3 L Hct 33.9 L MCV 82.9 MCH 27.6 MCHC 33.3 RDW Std Deviation 46.6 H RDW Coeff of [place] 15.3 H Plt Count 246 MPV 10.6 H Immature Gran % (Auto) 0.2 Neut % (Auto) 82.1 Lymph % (Auto) 10.9 [place] % (Auto) 6.6 Eos % (Auto) 0.1 Baso % (Auto) 0.1 Neut # (Auto) 13.36 H Lymph # (Auto) 1.77 [place] # (Auto) 1.07 H Eos # (Auto) 0.01 Baso # (Auto) 0.01 Immature Gran # (Auto) 0.04 H ESR Sodium 133 L Potassium 4.3 Chloride 99 Carbon Dioxide 26 Anion Gap 8 BUN 21 Creatinine 0.62 Est Cr Clr Drug Dosing Not Reportable Est GFR ( Amer) 121.0 Est GFR (Non-Af Amer) 104.4 BUN/Creatinine Ratio 33.9 H Glucose 133 H Lactate Calcium 8.9 Total Bilirubin 0.4 AST 14 ALT 13 Alkaline Phosphatase 80 C-Reactive Protein 16.83 H Total Protein 8.1 Albumin 3.7 Globulin 4.4 H Albumin/Globulin Ratio 0.8 L Procalcitonin HCG, Qual Negative Urine Color Urine Appearance Urine pH Ur Specific [place] Urine Protein Urine Glucose (UA) Urine Ketones Urine Blood Urine Nitrite Urine Bilirubin Urine Urobilinogen Ur Leukocyte Esterase Urine WBC (Auto) Urine RBC (Auto) U Hyaline Cast (Auto) U Epithel Cells (Auto) Urine Bacteria (Auto) Urine Opiates Screen U Codeine Confrm GC/MS Ur Morphine (GC/MS) Ur Hydrocodone (GC/MS) Ur Norhydrocodone Ur Noroxycodone Urine Oxycodone (GC/MS) U Oxymorphone GC/MS Ur Methadone, Qual Ur Hydromorphone (GC/MS) Urine Barbiturates Ur Phencyclidine (PCP) U Amphetamines Confirm U Amphetamin/Meth Scrn U Methamphetamin Confrm Urine MDEA MDMA (Ecstasy) Screen MDMA Urine MDMA U Benzodiazepines Scrn U Cocaine Confirm GC/MS Ur Cocaine Metabolite U Marijuana (THC) Screen U Marijuana THC Carboxy Drug Screen Comment SARS-CoV-2, RNA, NAAT 01/22/22 01/22/22 01/22/22 08:30 08:30 08:30 WBC RBC Hgb Hct MCV MCH MCHC RDW Std Deviation RDW Coeff of [place] Plt Count MPV Immature Gran % (Auto) Neut % (Auto) Lymph % (Auto) [place] % (Auto) Eos % (Auto) Baso % (Auto) Neut # (Auto) Lymph # (Auto) [place] # (Auto) Eos # (Auto) Baso # (Auto) Immature Gran # (Auto) ESR 87 H Sodium Potassium Chloride Carbon Dioxide Anion Gap BUN Creatinine Est Cr Clr Drug Dosing Est GFR ( Amer) Est GFR (Non-Af Amer) BUN/Creatinine Ratio Glucose Lactate 0.8 Calcium Total Bilirubin AST ALT Alkaline Phosphatase C-Reactive Protein Total Protein Albumin Globulin Albumin/Globulin Ratio Procalcitonin 0.16 HCG, Qual Urine Color Urine Appearance Urine pH Ur Specific [place] Urine Protein Urine Glucose (UA) Urine Ketones Urine Blood Urine Nitrite Urine Bilirubin Urine Urobilinogen Ur Leukocyte Esterase Urine WBC (Auto) Urine RBC (Auto) U Hyaline Cast (Auto) U Epithel Cells (Auto) Urine Bacteria (Auto) Urine Opiates Screen U Codeine Confrm GC/MS Ur Morphine (GC/MS) Ur Hydrocodone (GC/MS) Ur Norhydrocodone Ur Noroxycodone Urine Oxycodone (GC/MS) U Oxymorphone GC/MS Ur Methadone, Qual Ur Hydromorphone (GC/MS) Urine Barbiturates Ur Phencyclidine (PCP) U Amphetamines Confirm U Amphetamin/Meth Scrn U Methamphetamin Confrm Urine MDEA MDMA (Ecstasy) Screen MDMA Urine MDMA U Benzodiazepines Scrn U Cocaine Confirm GC/MS Ur Cocaine Metabolite U Marijuana (THC) Screen U Marijuana THC Carboxy Drug Screen Comment SARS-CoV-2, RNA, NAAT 01/22/22 01/22/22 01/22/22 12:55 14:22 14:22 WBC RBC Hgb Hct MCV MCH MCHC RDW Std Deviation RDW Coeff of [place] Plt Count MPV Immature Gran % (Auto) Neut % (Auto) Lymph % (Auto) [place] % (Auto) Eos % (Auto) Baso % (Auto) Neut # (Auto) Lymph # (Auto) [place] # (Auto) Eos # (Auto) Baso # (Auto) Immature Gran # (Auto) ESR Sodium Potassium Chloride Carbon Dioxide Anion Gap BUN Creatinine Est Cr Clr Drug Dosing Est GFR ( Amer) Est GFR (Non-Af Amer) BUN/Creatinine Ratio Glucose Lactate Calcium Total Bilirubin AST ALT Alkaline Phosphatase C-Reactive Protein Total Protein Albumin Globulin Albumin/Globulin Ratio Procalcitonin HCG, Qual Urine Color Yellow Urine Appearance Clear Urine pH 7.5 Ur Specific [place] 1.017 Urine Protein Trace H Urine Glucose (UA) Trace H Urine Ketones Negative Urine Blood Negative Urine Nitrite Negative Urine Bilirubin Negative Urine Urobilinogen Negative Ur Leukocyte Esterase Negative Urine WBC (Auto) 1-5 Urine RBC (Auto) 0-4 U Hyaline Cast (Auto) 0 U Epithel Cells (Auto) 10-20 H Urine Bacteria (Auto) Negative Urine Opiates Screen Pos H U Codeine Confrm GC/MS Ur Morphine (GC/MS) Ur Hydrocodone (GC/MS) Ur Norhydrocodone Ur Noroxycodone Urine Oxycodone (GC/MS) U Oxymorphone GC/MS Ur Methadone, Qual Neg Ur Hydromorphone (GC/MS) Urine Barbiturates Neg Ur Phencyclidine (PCP) Neg U Amphetamines Confirm U Amphetamin/Meth Scrn Pos H U Methamphetamin Confrm Urine MDEA MDMA (Ecstasy) Screen Pos H MDMA Urine MDMA U Benzodiazepines Scrn Neg U Cocaine Confirm GC/MS Ur Cocaine Metabolite Pos H U Marijuana (THC) Screen Pos H U Marijuana THC Carboxy Drug Screen Comment SARS-CoV-2, RNA, NAAT NEGATIVE 01/22/22 14:22 WBC RBC Hgb Hct MCV MCH MCHC RDW Std Deviation RDW Coeff of [place] Plt Count MPV Immature Gran % (Auto) Neut % (Auto) Lymph % (Auto) [place] % (Auto) Eos % (Auto) Baso % (Auto) Neut # (Auto) Lymph # (Auto) [place] # (Auto) Eos # (Auto) Baso # (Auto) Immature Gran # (Auto) ESR Sodium Potassium Chloride Carbon Dioxide Anion Gap BUN Creatinine Est Cr Clr Drug Dosing Est GFR ( Amer) Est GFR (Non-Af Amer) BUN/Creatinine Ratio Glucose Lactate Calcium Total Bilirubin AST ALT Alkaline Phosphatase C-Reactive Protein Total Protein Albumin Globulin Albumin/Globulin Ratio Procalcitonin HCG, Qual Urine Color Urine Appearance Urine pH Ur Specific [place] Urine Protein Urine Glucose (UA) Urine Ketones Urine Blood Urine Nitrite Urine Bilirubin Urine Urobilinogen Ur Leukocyte Esterase Urine WBC (Auto) Urine RBC (Auto) U Hyaline Cast (Auto) U Epithel Cells (Auto) Urine Bacteria (Auto) Urine Opiates Screen U Codeine Confrm GC/MS Pending Ur Morphine (GC/MS) Pending Ur Hydrocodone (GC/MS) Pending Ur Norhydrocodone Pending Ur Noroxycodone Pending Urine Oxycodone (GC/MS) Pending U Oxymorphone GC/MS Pending Ur Methadone, Qual Ur Hydromorphone (GC/MS) Pending Urine Barbiturates Ur Phencyclidine (PCP) U Amphetamines Confirm Pending U Amphetamin/Meth Scrn U Methamphetamin Confrm Pending Urine MDEA Pending MDMA (Ecstasy) Screen MDMA Pending Urine MDMA Pending U Benzodiazepines Scrn U Cocaine Confirm GC/MS Pending Ur Cocaine Metabolite U Marijuana (THC) Screen U Marijuana THC Carboxy Pending Drug Screen Comment Pending SARS-CoV-2, RNA, NAAT Diagnostic Findings Lumbar MRI 01/22/22 - IMPRESSION: 1. Severe multilevel degenerative disc disease and facet arthrosis within the lumbar spine, most pronounced at L4-L5. Severe central canal stenosis at this level due to grade II anterolisthesis, central disc extrusion, facet arthrosis and ligamentous hypertrophy. Moderate to severe central canal stenosis at L3-L4 and moderate central canal stenosis at L2-L3 due to a central disc extrusion with inferior subligamentous migration. The central canal stenosis results in redundancy/tortuosity of the nerve roots. 2. Heterogeneous marrow signal throughout the lumbar spine. At most levels, this is likely discogenic. However, marrow edema at the L4-L5 level is nonspecific and could be degenerative or due to an infectious process with osteomyelitis given slight increased fluid signal within the L4-L5 disc. Therefore, early discitis cannot be excluded, particularly given paravertebral edema. No epidural fluid collection identified on this exam. If suspicion for an infectious process, short-term follow-up MRI of the lumbar spine with and without contrast is recommended. 3. Multilevel neural foraminal stenosis, as detailed above. Addendum: The patient return for postcontrast imaging. T1 pre and postcontrast imaging was performed. Intravenous injection of 7 cc of Gadavist was uneventful. Post contrast images demonstrate no epidural or paraspinal fluid collection to suggest an abscess. However, there is edema and enhancement adjacent to the lower lumbar spine and upper sacrum, greater on the right. No associated fluid collection is present. The etiology for this edema and enhancement is not clear on this exam however an infectious process is within the differential, as described in the initial report. This finding was discussed with Marcial Mcdowell at time of addendum. Medications Administered Ketorolac Tromethamine (Ketorolac Tromethamine 15 Mg/Ml Vial) 15 mg IV Q6H PRN PRN Reason: Pain Stop: 01/25/22 15:45 Last Admin: 01/22/22 16:33 Dose: 15 mg Documented by: [id number] Nicotine (Nicotine 21 Mg/24 Hr Tdsy) 21 mg TD QAM ERNESTO Stop: 02/21/22 15:59 Last Admin: 01/22/22 16:33 Dose: 21 mg Documented by: [id number] Discontinued Medications Gadobutrol (Gadobutrol 65ml Vial) 7 ml IV ONCE ONE Stop: 01/22/22 09:44 Last Admin: 01/22/22 09:43 Dose: 7 ml Documented by: [id number] Cefepime HCl (Maxipime) 20 mls @ 5 mls/min IV NOW ONE Stop: 01/22/22 10:48 Last Admin: 01/22/22 11:25 Dose: 5 mls/min Documented by: [id number] Vancomycin HCl 1,750 mg/ (Sodium Chloride) 535 mls @ 200 mls/hr IV NOW ONE Stop: 01/22/22 13:40 Last Infusion: 01/22/22 14:08 Dose: 0 mls/hr Documented by: [id number] Admin: 01/22/22 11:25 Dose: 200 mls/hr Documented by: [id number] Ketorolac Tromethamine (Ketorolac Tromethamine 15 Mg/Ml Vial) 10 mg IV ONE STA Stop: 01/22/22 04:14 Last Admin: 01/22/22 04:36 Dose: 10 mg Documented by: [id number] Lidocaine (Lidocaine 5% 1 Patch) 1 patch TD NOW STA Stop: 01/22/22 04:14 Last Admin: 01/22/22 04:37 Dose: 1 patch Documented by: [id number] Morphine Sulfate (Morphine Sulfate 4 Mg/Ml 1 Ml Carp\Vial) 4 mg IV NOW STA Stop: 01/22/22 11:21 Last Admin: 01/22/22 11:42 Dose: 4 mg Documented by: [id number] Ondansetron HCl (Ondansetron Inj 2 Mg/Ml 2 Ml Vial) 4 mg IV NOW STA Stop: 01/22/22 11:21 Last Admin: 01/22/22 11:42 Dose: 4 mg Documented by: [id number] Code Status & VTE Plan VTE Prophylaxis Plan VTE Prophylaxis will be ordered: Yes Supervising Physician Co-Signing Physician Notes I have seen and examined the patient and have discussed the case with the provider above. I agree with the assessment and plan as stated. 51-year-old female with history of heroin abuse and tobacco abuse presents with vertebral osteomyelitis. She reports back pain since yesterday, gradual in onset and now constant and worse with movement she injects heroin 2-3 times daily. She denies any fevers, chills, chest pain, trouble breathing. She is restless and tachycardic. She admitted to IV drug use just prior to arrival per ER staff note. Overnight she underwent an lumbar MRI revealing evidence of possible vertebral osteomyelitis. She was started empirically on vancomycin and cefepime. Lab work reveals leukocytosis of 16,000, anemia with H&H 11.3/34, elevated inflammatory markers including ESR 87 and a CRP of 17. Kidney function and liver function appear within normal limits. BMP is normal aside from a sod ium of 133. Lactate is 0.8, procalcitonin 0.16, test is negative. Urinalysis does not reflect evidence of infection. Urine drug screen is still pending but positive for opiates and methamphetamine and MDMA, cocaine and marijuana positive so far. Blood cultures are pending. Physical exam reveals a well-nourished well-developed female who is writhing around the bed in pain. Skin is warm and dry with no evidence of diaphoresis and injection harding are noted on the left upper extremity. There is a circular golf size slightly raised erythematous rash on her left lower back. Poor de ntition. Cardiac exam reveals S1/S2 heard with no evidence of murmurs gallops or rubs. There is no peripheral edema and heart rate is tachycardic but regular rhythm. She has no evidence of [place] lesions. There is no evidence of paraspinal muscle tenderness to palpation. No gross focal neurologic deficits. Appears hyper irritable but can fall asleep easily. In the ER today she has received Toradol, lidocaine patch, vancomycin, cefepime and morphine 4 mg IV. She is also had Zofran. Nurse reports she continually asks for morphine IV. She is slightly hypertensive with a blood pressure 172/92 and a heart rate of 90. She is oxygenating well on room air. This patient has likely vertebral osteomyelitis/discitis with no clear evidence of spinal abscess on MRI. Potential source of infection includes the skin from IV drug use. There is no evidence of infection respiratory tract infection or infective endocarditis at this time. Echocardiogram is pending, blood cultures are pending. Agree with infectious disease consult and continuation of broad-spectrum empiric antibiotics pending culture results and clinical improvement. Obviously, heroin withdrawal may cause her to leave AGAINST MEDICAL ADVICE but will try to temper the symptoms as much as possible with Toradol, oral Percocet, antihistamines as needed and/or Tylenol. Continue to monitor in PCU setting. DO Sachin
[2022-01-22] MEDS: CEFEPIME 2,000 MG in SYRINGE 0 ML IV SCH (20:25)
[2022-01-22] MEDS: oxyCODONE/ACETAMINOPHEN 5mg/325mg TAB PO PRN (20:28)
[2022-01-22] MEDS ORDERED: CEFEPIME 2,000 MG in SYRINGE 0 ML IV SCH (21:00)
[2022-01-22] MEDS: VANCOMYCIN HCL 1,250 MG in SODIUM CHLORIDE 0.9% 250 ML IV SCH (22:14)
[2022-01-22] MEDS ORDERED: cloNIDine HCL 0.1 MG TAB PO ONE (23:40)
[2022-01-22] MEDS ORDERED: OLANZapine 10 MG/2.1 ML SDV IM STA (23:54)
[2022-01-23] MEDS ORDERED: LORazepam 2 MG/1 ML VIAL IV PRN (00:02)
[2022-01-23] MEDS: LORazepam 2 MG/1 ML VIAL IV PRN ×4 (00:17→20:31)
[2022-01-23] MEDS: CEFEPIME 2,000 MG in SYRINGE 0 ML IV SCH ×3 (02:50→19:55)
[2022-01-23] MEDS: KETOROLAC TROMETHAMINE 15 MG/ML VIAL IV PRN ×4 (04:40→23:33)
[2022-01-23] MEDS ORDERED: DIPHENOXYLATE/ATROPINE 2.5/0.025MG TAB PO PRN (08:13)
[2022-01-23] MEDS ORDERED: METOPROLOL SUCC 25MG EXT REL TAB PO SCH (09:00)
[2022-01-23 09:35] LABS: BUN Creatinine Ratio 26.2 (10-20); Calcium 9.1 mg/dl (8.5-10.1); Creatinine Clr Calc Pharmacy 96.2 ml/min; Est GFR (African American) 121.7 ml/min; Potassium 3.8 mmol/L (3.5-5.1)
[2022-01-23] MEDS: ENOXAPARIN INJ 40 MG/0.4 ML SYR SQ SCH (09:37)
[2022-01-23] MEDS: VANCOMYCIN HCL 1,250 MG in SODIUM CHLORIDE 0.9% 250 ML IV SCH ×2 (09:37→22:02)
[2022-01-23] MEDS: NICOTINE 21 MG/24 HR TDSY TD SCH (09:37)
[2022-01-23] MEDS: lisinopril 40 MG TAB PO SCH (09:38)
[2022-01-23] MEDS: OXYBUTYNIN CHLORIDE XL 5 MG TABCR PO SCH (09:38)
[2022-01-23] MEDS: PANTOprazole 40 MG TAB PO SCH (09:38)
[2022-01-23 09:49] LABS: Basophils # (auto) 0.02 K/uL (0-0.2); Basophils % (auto) 0.1 %; Eosinophils # (auto) 0.01 K/uL (0-0.5); Eosinophils % (auto) 0.1 %; Hemoglobin 11.8 g/dL (12.0-16.0); Immature Granulocytes # (auto) 0.04 K/uL (0.00-0.02); Immature Granulocytes % (auto) 0.2 %; Lymphocytes # (auto) 1.33 K/uL (1.2-3.4); Lymphocytes % (auto) 7.3 %; Mean Corpuscular Hemoglobin 27.1 pg (25-34); Mean Corpuscular Hgb Conc 33.7 g/dL (32-36); Mean Corpuscular Volume 80.5 fL (80-100); Mean Platelet Volume 9.9 fL (7.4-10.4); Monocytes # (auto) 1.13 K/uL (0.11-0.59); Monocytes % (auto) 6.2 %; Neutrophils # (auto) 15.61 K/uL (1.4-6.5); Neutrophils % (auto) 86.1 %; Platelet Count 256 K/uL (130-400); RDW Coefficient of Variation 14.9 % (11.5-14.5); RDW Standard Deviation 43.7 fL (36.4-46.3); Red Blood Count 4.35 M/uL (4.2-5.4); White Blood Count 18.14 K/uL (4.8-10.8)
--- NOTE | 2022-01-23 10:19 | Electrocardiogram Report ---
Test Reason : Blood Pressure : / mmHG Vent. Rate : 099 BPM Atrial Rate : 099 BPM P-R Int : 144 ms QRS Dur : 090 ms QT Int : 362 ms P-R-T Axes : 067 035 111 degrees QTc Int : 464 ms Normal sinus rhythm Left atrial enlargement Left ventricular hypertrophy with repolarization abnormality Prolonged QT Abnormal ECG No previous ECGs available Confirmed by Esvin Hoff ([id number]) on 01/23/2022 10:19:16 AM Referred By: REFERRED SELF Confirmed By:Esvin Hoff
[2022-01-23] MEDS: cloNIDine HCL 0.1 MG TAB PO SCH ×3 (11:25→19:56)
[2022-01-23] MEDS: oxyCODONE/ACETAMINOPHEN 5mg/325mg TAB PO PRN ×2 (12:28→20:30)
[2022-01-23] MEDS: hydrALAZINE HCL 20 MG/ML VIAL IV PRN (12:29)
--- NOTE | 2022-01-23 13:56 | Pharmacy Report ---
Pharmacy Vanc AUC Short Note - Date of Service January 23, 2022 - Assessment & Plan Assessment 51 year old F receiving Vancomycin and Cefepime for treatment of possible vertebral osteomyelitis/discitis. * PMHx significant for heroin abuse * Patient has been afebrile. Leukocytosis of 18k. ESR/CRP both elevated. Procalcitonin was 0.16. * Blood cultures are growing Staph species with positive MRSA PCR. * [facility] Infectious Disease has been consulted. * Given IV drug abuse, patient likely not a good candidate for outpatient PICC line as well as a risk for leaving AMA. Would recommend consideration of 2 dose Dalbavancin therapy (1500 mg IV on days 1 and 8). Would need [facility] ID to weigh in on Dalbavancin use. Dalbavancin must be administered in [facility] (outpatient) per [facility] policy. Plan Vancomycin * AUC/SEAMUS is the preferred PK/PD target for vancomycin * AUC guided dosing is effective and associated with decreased risk of nephrotoxicity compared to traditional trough targets * Loading dose: 1750 mg IV x 1 * Maintenance dose: 1250 mg IV every 12 hours * Dose is predicted to achieve target AUC/SEAMUS of 400-600 mg/L.hr and may be associated with a 11% risk of nephrotoxicity * Trough level ordered for 01/24/22 prior to the 1000 dose Cefepime * 2000 mg IV every 8 hours - dosed appropriately Pharmacy will continue to follow and will adjust dose/frequency as necessary. Thank you.
--- NOTE | 2022-01-23 15:34 | Psychiatric Consultation ---
Date of Consultation January 23, 2022 Impression / Recommendations Impression 51 yo female with osteomyeltitis related to significant IV drug use. She clearly meets criteria for use disorder. I believe her gesture last pm was to manipulate/receive pain meds. She is not interested in any rehab or MAT. (1) Opiate withdrawal: no indication for inpatient psychiatric care no indication for 302 warrant as cannot commit for substance use under [place] mental health law case reviewed with Dr. Holly as patient highly likely to leave AMA. Psych History Identifying Data Mr. Suarez is a 51 yo female from [place] with significant heroin abuse/dependence admit on 01/22/22 for back pain (early vertebral osteo). Consult is by hospitalist service for suicide precautions. Chief Complaint "I don't understand why I can't leave with my port in and come back tomorrow for IV antibiotics" History of Present Illness Patient understands that her current condition is a result of her drug use but she just wants to "live my life" and she is having sweats, pain, stomach upset "can't eat" and "I wanted clonidine or pain meds and did something to get attention." She is referring to incident last pm where she called her friend to come get her and ripped off her tele and wrapped IV tubing around her neck. She was later found to have an uncapped syringe in her room which she had used from her belongings and a similar syringe was found in her bag with white liquid. Has repeatedly denied SI today. Is angry re: her pain control. BP and P remain elevated despite starting clonidine protocol. She denies diarrhea. She uses heroin IV 2-3 times a day by injection and has a multi bag habit. She identifies 1 main support her friend Reba ( in 2019). She attended [facility] rehab for 5 days last may. [place]. Won't reliably answer how much EToh she drinks. No psych inpatient or past suicide attempts. She denied access to weapons to liaison and is not interested in any mental health providers. Allergies Allergy/AdvReac Type Severity Reaction Status Date / Time No Known Allergies Allergy Verified 11/11/02 19:43 Home Medications Medication Instructions Recorded Confirmed Type hydrochlorothiazide 25 mg tablet 25 mg PO DAILY 01/22/22 01/22/22 History lisinopril 40 mg tablet 40 mg PO DAILY 01/22/22 01/22/22 History metoprolol succinate 25 mg 25 mg PO DAILY 01/22/22 01/22/22 History tablet,extended release 24 hr omeprazole 20 mg capsule,delayed 20 mg PO DAILY 01/22/22 01/22/22 History release oxybutynin chloride 10 mg 10 mg PO DAILY 01/22/22 01/22/22 History tablet,extended release 24 hr trazodone 50 mg tablet 50 mg PO HS 01/22/22 01/22/22 History Personal History Beliefs That Will Affect Care: None Patient History Medical History Chronic low back pain Heroin abuse Social History Smoking Status: Current every day smoker Hx Alcohol Use: Yes Alcohol type: beer, wine and hard liquor Hx Substance Use: Yes Non-Prescribed Medications: Heroin Last Used Substance: Just Prior to Arrival Substance Use Type Other:: taking lorazepam Preferred Language: Arabic Communication Ability: Effective Data Input Clerk Required: No Beliefs That Will Affect Care: None Current Living Situation: Alone Other Information That Helps Us Care for You: No Feels Safe at Home: Yes Safety Concerns: Feels Safe At This Time Assistive Devices: None Physical Exam Psychiatric: Orientation: alert Apperance: + disheveled Eye Contact: + fair eye contact Motor Behavior: + abnormal motor movements (restless) Speech: normal rate/rhythm/volume of speech Affect: + irritable affect Mood: + irritable mood Thought Process: + concrete thought process Thought Content: reality based without delusions Suicidal Thoughts: denies suicidal thoughts Homicidal Thoughts: denies homicidal thoughts Hallucinations: no auditory hallucinations and no visual hallucinations Cognition: language grossly intact; + attention not intact Insight: + limited insight Judgement: + limited judgement Vital Signs (Past 24 Hours): Last Vital Signs Temp 36.8 C 01/23/22 14:52 Pulse 96 H 01/23/22 14:52 Resp 18 01/23/22 14:52 BP 179/113 H 01/23/22 14:52 Pulse Ox 97 01/23/22 14:52 Review of Systems All systems reviewed & are unremarkable except as noted in HPI & below Results & Data (PSY) Medications Administered Clonidine HCl (Clonidine Hcl 0.1 Mg Tab) 0.1 mg PO Q4HWA [facility] Stop: 02/22/22 11:59 Last Admin: 01/23/22 11:25 Dose: 0.1 mg Documented by: [id number] Enoxaparin Sodium (Enoxaparin Inj 40 Mg/0.4 Ml Syr) 40 mg SQ QAM ERNESTO Stop: 02/22/22 08:59 Last Admin: 01/23/22 09:37 Dose: 40 mg Documented by: [id number] Hydralazine HCl (Hydralazine Hcl 20 Mg/Ml Vial) 5 mg IV Q6H PRN PRN Reason: hypertension Stop: 02/22/22 12:14 Last Admin: 01/23/22 12:29 Dose: 5 mg Documented by: [id number] Cefepime HCl 2,000 mg/ Syringe 20 mls @ 5 mls/min IV Q8H [facility]; Protocol Stop: 03/05/22 18:59 Last Admin: 01/23/22 11:24 Dose: 5 mls/min Documented by: [id number] Admin: 01/23/22 02:50 Dose: 5 mls/min Documented by: [id number] Admin: 01/22/22 20:25 Dose: 5 mls/min Documented by: [id number] Vancomycin HCl 1,250 mg/ (Sodium Chloride) 275 mls @ 200 mls/hr IV Q12H [facility] Stop: 03/05/22 21:59 Last Infusion: 01/23/22 11:00 Dose: 0 mls/hr Documented by: [id number] Admin: 01/23/22 09:37 Dose: 200 mls/hr Documented by: [id number] Infusion: 01/22/22 23:49 Dose: 0 mls/hr Documented by: [id number] Admin: 01/22/22 22:14 Dose: 200 mls/hr Documented by: [id number] Ketorolac Tromethamine (Ketorolac Tromethamine 15 Mg/Ml Vial) 15 mg IV Q6H PRN PRN Reason: Pain Stop: 01/25/22 15:45 Last Admin: 01/23/22 09:36 Dose: 15 mg Documented by: [id number] Admin: 01/23/22 04:40 Dose: 15 mg Documented by: [id number] Admin: 01/22/22 22:31 Dose: 15 mg Documented by: [id number] Admin: 01/22/22 16:33 Dose: 15 mg Documented by: [id number] Lisinopril (Lisinopril 40 Mg Tab) 40 mg PO DAILY [facility] Stop: 02/22/22 08:59 Last Admin: 01/23/22 09:38 Dose: 40 mg Documented by: [id number] Lorazepam (Lorazepam 2 Mg/1 Ml Vial) 0.5 mg IV Q4H PRN PRN Reason: Anxiety/Agitation Stop: 02/22/22 00:01 Last Admin: 01/23/22 04:48 Dose: 0.5 mg Documented by: [id number] Admin: 01/23/22 00:17 Dose: 0.5 mg Documented by: [id number] Miscellaneous (Remove Lidoderm Patch) 1 ea N/A DAILY@2100 [facility] Stop: 02/21/22 20:59 Last Admin: 01/22/22 20:25 Dose: Not Given Documented by: [id number] Miscellaneous (Remove Nicoderm Patch) 1 ea N/A DAILY@0859 [facility] Stop: 02/22/22 08:58 Last Admin: 01/23/22 09:39 Dose: 1 ea Documented by: [id number] Nicotine (Nicotine 21 Mg/24 Hr Tdsy) 21 mg TD QAM [facility] Stop: 02/21/22 15:59 Last Admin: 01/23/22 09:37 Dose: 21 mg Documented by: [id number] Admin: 01/22/22 16:33 Dose: 21 mg Documented by: [id number] Oxybutynin Chloride (Oxybutynin Chloride Xl 5 Mg Tabcr) 10 mg PO DAILY [facility] Stop: 02/22/22 08:59 Last Admin: 01/23/22 09:38 Dose: 10 mg Documented by: [id number] Oxycodone/Acetaminophen (Oxycodone/Acetaminophen 5mg/325mg Tab) 1 tab PO Q4H PRN PRN Reason: Pain Stop: 02/05/22 15:42 Last Admin: 01/23/22 12:28 Dose: 1 tab Documented by: [id number] Admin: 01/22/22 20:28 Dose: 1 tab Documented by: [id number] Pantoprazole Sodium (Pantoprazole 40 Mg Tab) 40 mg PO QAM [facility] Stop: 02/22/22 08:59 Last Admin: 01/23/22 09:38 Dose: 40 mg Documented by: [id number] Coding Level of Care Code 02982 Inpt Consult Level 3 Diagnoses Opiate withdrawal F11.23
[2022-01-23] MEDS ORDERED: LORazepam 2 MG/1 ML VIAL IV STA (16:30)
--- NOTE | 2022-01-23 18:46 | Hospitalist Progress Note ---
Date of Service January 23, 2022 delayed entry date of service noted above Assessment & Plan (1) Acute exacerbation of chronic low back pain: Plan: MRI findings concerning for potential early discitis/osteomyelitis. Admit for further evaluation and IV antibiotics - Broad-spectrum antibiotics started in the ED - cefepime/vancomycin - will continue for now - Blood cultures pending - Consult infectious disease for additional recommendations - Checking ECHO to r/o endocarditis 01/23 continue abx Echo pending ID consult pending (2) Heroin abuse: Plan: Pt currently using 25-30 bags of heroin per day. Appears to be developing withdrawal symptoms when seen in the ED. - Monitor in PCU - On a 1:1 for now - Check urine drug screen 01/23 possible withdrawal discussed with Psych Clonidine q4h and ordered also on Morphine and Oxycodone PRN Ativan PRN (3) Leukocytosis: (4) GERD (gastroesophageal reflux disease): (5) Hypertension: Plan: on Clonidine PRN Hydralazine (6) Vertebral osteomyelitis: Plan: plan of care discussed with patient in detail and at length all questions answered she is understanding, agreeable, comfortable with the plan of care Admission and Anticipated Discharge Date Admission Date: January 22, 2022 Subjective ff up for osteomyelitis, etc seen resting in bed, with RN at bedside states she feels bad- has tremors, shaking, body aches patient anxious no chest pain, dyspnea, palpitations, dizziness also has back pain no other symptoms Review of Systems Review of Systems: all noted and negative except for above Physical Exam Physical Exam: General- oriented x 3, not in distress, speaks in sentences with no effort or accessory muscle use very anxious Head- atraumatic Eyes- PERRL, EOMI, anicteric ENT- oropharynx clear Neck- supple, no JVD, no adenopathy, no thyromegaly; carotids +2/2, no bruits appreciated Lungs- clear to auscultation bilaterally, no rales/wheezes Heart- (+) tachycardic, regular rhythm; no murmur, no gallop, no rub appreciated Abdomen- normal bowel sounds, nondistended, soft, nontender, no masses or hepatosplenomegaly Extremities- no pretibial edema, no calf tenderness; peripheral pulses intact Neuro- alert, oriented x 3; CN 2-12 grossly intact; motor 5/5 bilaterally;sensation 100% on all extremities; no other gross focal neurologic deficits Skin- (+) track [place], warm & dry Results & Data Results & Data ([facility]) Vital Signs (Past 12 Hours) Vital Signs Temp Pulse Pulse Resp BP BP Pulse Ox 01/23/22 14:52 36.8 C 96 H 18 179/113 H 97 01/23/22 12:55 01/23/22 12:05 182/90 H 01/23/22 11:58 36.4 C L 110 H 20 197/117 H 98 01/23/22 07:52 100 H 01/23/22 07:06 37.2 C 98 H 18 167/101 H 98 Pulse Ox 01/23/22 14:52 01/23/22 12:55 96 01/23/22 12:05 01/23/22 11:58 01/23/22 07:52 01/23/22 07:06 all noted and reviewed including below
[2022-01-23] MEDS ORDERED: traZODone HCL 50 MG TAB PO PRN (23:50)
[2022-01-24] MEDS: oxyCODONE/ACETAMINOPHEN 5mg/325mg TAB PO PRN (00:51)
[2022-01-24] MEDS: MoRPHine SULFATE 4 MG/ML 1 ML CARP\\VIAL IV PRN (01:53)
[2022-01-24] MEDS: LORazepam 2 MG/1 ML VIAL IV PRN ×3 (02:03→19:47)
[2022-01-24] MEDS: CEFEPIME 2,000 MG in SYRINGE 0 ML IV SCH ×2 (03:13→12:00)
[2022-01-24] MEDS: LIDOCAINE 5% 1 PATCH TD SCH (03:42)
[2022-01-24] MEDS: cloNIDine HCL 0.1 MG TAB PO PRN ×3 (03:43→09:59)
[2022-01-24] MEDS: hydrALAZINE HCL 20 MG/ML VIAL IV PRN (03:43)
[2022-01-24] MEDS ORDERED: LORazepam 2 MG/1 ML VIAL IV STA ×2 (04:40→06:26)
[2022-01-24] MEDS ORDERED: METOPROLOL TARTRATE 1 MG/ML VIAL IV STA (04:45)
[2022-01-24] MEDS ORDERED: oxyCODONE HCL IR 5 MG TAB (IMMEDIATE RELEASE) PO STA (06:32)
[2022-01-24] MEDS ORDERED: LORazepam 2 MG/1 ML VIAL IV PRN ×2 (07:28→13:00)
[2022-01-24] MEDS: cloNIDine HCL 0.1 MG TAB PO SCH ×4 (08:01→19:34)
[2022-01-24] MEDS: PANTOprazole 40 MG TAB PO SCH (08:02)
[2022-01-24] MEDS: OXYBUTYNIN CHLORIDE XL 5 MG TABCR PO SCH (08:02)
[2022-01-24] MEDS: lisinopril 40 MG TAB PO SCH (08:02)
[2022-01-24] MEDS: NICOTINE 21 MG/24 HR TDSY TD SCH (08:02)
[2022-01-24] MEDS: ENOXAPARIN INJ 40 MG/0.4 ML SYR SQ SCH (08:03)
[2022-01-24] MEDS ORDERED: GABAPENTIN 1200MG ALCOHOL WITHDRAWAL LOAD PO STA (08:23)
[2022-01-24] MEDS ORDERED: GABAPENTIN 600 MG TAB PO ONE (08:23)
[2022-01-24] MEDS ORDERED: ATIVAN IV ALCOHOL WITHDRAWL IV PRN (08:23)
[2022-01-24] MEDS ORDERED: MULTI-VITAMIN INFUSION 10 ML, THIAMINE HCL 100 MG, FOLIC ACID 1 MG in SODIUM CHLORIDE 0... IV ONE (08:23)
--- NOTE | 2022-01-24 09:02 | Pain Management Consultation ---
Date of Consultation January 24, 2022 Assessment & Plan (1) Vertebral osteomyelitis: (2) Heroin abuse: (3) Acute exacerbation of chronic low back pain: (4) Alcohol abuse: (5) Benzodiazepine abuse: (6) Cannabis abuse: (7) Cocaine abuse: (8) Tobacco use disorder: (9) Leukocytosis: Lumbar MRI and blood work suggests vertebral osteomyelitis. Currently she is receiving PO Percocet and IV Morphine for pain relief which I do find appropriate. Continue current medication regimen. Patient is not a candidate for interventional procedures due to multiple comorbid conditions. Thank you for the consultation. History of Present Illness Reason for Consultation: Intractable back Pain Attending Physician: Aren Holly MD History of Present Illness This is a 51 year old female that came into the Emergency Department for acute low back pain. She thinks that she may have fallen when carrying groceries. The pain is located in the low back and down the right leg. She has previously tried ibuprofen, muscle relaxers, and heroin without relief. No bowel/bladder incontinence, saddle anesthesia, foot drop, leg weakness. Allergies Allergy/AdvReac Type Severity Reaction Status Date / Time No Known Allergies Allergy Verified 11/11/02 19:43 Home Medications Medication Instructions Recorded Confirmed Type hydrochlorothiazide 25 mg tablet 25 mg PO DAILY 01/22/22 01/22/22 History lisinopril 40 mg tablet 40 mg PO DAILY 01/22/22 01/22/22 History metoprolol succinate 25 mg 25 mg PO DAILY 01/22/22 01/22/22 History tablet,extended release 24 hr omeprazole 20 mg capsule,delayed 20 mg PO DAILY 01/22/22 01/22/22 History release oxybutynin chloride 10 mg 10 mg PO DAILY 01/22/22 01/22/22 History tablet,extended release 24 hr trazodone 50 mg tablet 50 mg PO HS 01/22/22 01/22/22 History Patient History Medical History Chronic low back pain Heroin abuse Social History Smoking Status: Current every day smoker Hx Alcohol Use: Yes Alcohol type: beer, wine and hard liquor Hx Substance Use: Yes Non-Prescribed Medications: Heroin Last Used Substance: Just Prior to Arrival Substance Use Type Other:: taking lorazepam Preferred Language: Sami Communication Ability: Effective 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 She is awake but not alert. Not answering my questions. + tremor HEAD/FACE: Normocephalic and atraumatic. EYES: No drainage or conjunctival injection. ENT: Nose without bleeding or discharge. Oral mucosa moist. NECK: Full ROM without apparent pain. No swelling or masses noted. RESPIRATORY: Patient with unlabored breathing. No signs of respiratory distress. CHEST/AXILLA: Chest movement symmetrical. No deformities noted. ABDOMEN/GI: No distension BACK: Moves without difficulty SKIN: [place], warm and dry. No rash noted. MS/EXTREMITY: No swelling, no deformities. Moving extremities appropriately. NEURO: + hallucinating. Cranial Nerves are grossly intact. PSYCH: Awake. Not alert. Results ([facility]) Opioid Risk Assessment Opioid Risk Assessment: risk assessment performed and high risk identified
[2022-01-24] MEDS ORDERED: VANCOMYCIN TROUGH ONE (09:30)
[2022-01-24] MEDS: amLODIPine BESYLATE 5 MG TAB PO SCH (09:57)
[2022-01-24] MEDS: KETOROLAC TROMETHAMINE 15 MG/ML VIAL IV PRN ×3 (09:59→23:20)
[2022-01-24 10:29] LABS: Basophils # (auto) 0.01 K/uL (0-0.2); Basophils % (auto) 0.1 %; Hematocrit (blood only) 37.2 % (37-47); Hemoglobin 13.1 g/dL (12.0-16.0); Immature Granulocytes # (auto) 0.06 K/uL (0.00-0.02); Immature Granulocytes % (auto) 0.3 %; Lymphocytes # (auto) 1.48 K/uL (1.2-3.4); Lymphocytes % (auto) 8.4 %; Mean Corpuscular Hemoglobin 27.6 pg (25-34); Mean Corpuscular Hgb Conc 35.2 g/dL (32-36); Mean Corpuscular Volume 78.3 fL (80-100); Mean Platelet Volume 9.6 fL (7.4-10.4); Monocytes # (auto) 0.93 K/uL (0.11-0.59); Monocytes % (auto) 5.3 %; Neutrophils # (auto) 15.12 K/uL (1.4-6.5); Neutrophils % (auto) 85.9 %; Platelet Count 330 K/uL (130-400); RDW Coefficient of Variation 14.8 % (11.5-14.5); RDW Standard Deviation 42.1 fL (36.4-46.3); Red Blood Count 4.75 M/uL (4.2-5.4)
[2022-01-24 10:55] LABS: Albumin Level 3.6 gm/dl (3.4-5.0); Bilirubin Direct 0.1 mg/dl (0-0.2); Bilirubin,Total 0.4 mg/dl (0.2-1.0); Calcium 9.4 mg/dl (8.5-10.1); Creatinine Clr Calc Pharmacy 95.7 ml/min; Est GFR (African American) 121.7 ml/min; Potassium 3.5 mmol/L (3.5-5.1); Total Protein 8.6 gm/dl (6.0-8.3)
[2022-01-24] MEDS ORDERED: chlordiazePOXIDE ALCOHOL WITHDRAWL 50MG PO STA (11:14)
--- NOTE | 2022-01-24 11:32 | Pharmacy Report ---
Pharmacy Vanc AUC Short Note - Date of Service January 24, 2022 - Assessment & Plan Assessment 51 year old F receiving Vancomycin and Cefepime for treatment of possible vertebral osteomyelitis/discitis. * PMHx significant for heroin abuse * Patient has been afebrile. Mild improvement in leukocytosis. ESR/CRP both elevated. Procalcitonin was 0.16. * Blood cultures are growing MRSA - not final. * [facility] Infectious Disease has been consulted. * Given IV drug abuse, patient likely not a good candidate for outpatient PICC line as well as a risk for leaving A. Would recommend consideration of 2 dose Dalbavancin therapy (1500 mg IV on days 1 and 8). Would need [facility] ID to weigh in on Dalbavancin use. Dalbavancin must be administered in [facility] (outpatient) per [facility] policy. Plan Vancomycin * AUC/SEAMUS is the preferred PK/PD target for vancomycin * AUC guided dosing is effective and associated with decreased risk of nephrotoxicity compared to traditional trough targets * Trough level of 5.5 mcg/mL is subtherapeutic * Change to 1000 mg IV every 8 hours * New dose is predicted to achieve target AUC/SEAMUS of 400-600 mg/L.hr and may be associated with a 7% risk of nephrotoxicity * Trough level ordered for 01/25/22 prior to 1200 dose Pharmacy will continue to follow and will adjust dose/frequency as necessary. Thank you.
[2022-01-24] MEDS: VANCOMYCIN HCL 1,250 MG in SODIUM CHLORIDE 0.9% 250 ML IV SCH (11:59)
[2022-01-24] MEDS: VANCOMYCIN HCL 1,000 MG in SODIUM CHLORIDE 0.9% 250 ML IV SCH ×2 (12:49→19:34)
--- NOTE | 2022-01-24 12:57 | Hospitalist Progress Note ---
Date of Service January 24, 2022 Assessment & Plan (1) Vertebral osteomyelitis: (2) Heroin abuse: Plan: VERTEBRAL OSTEOMYELITIS, DISCITIS IN THE SETTING OF HEROIN ABUSE blood culture 1: MRSA blood culture 2: pending TT Echo: no signs of vegetation on Vanco ID consulted will consult Ortho as well Pain Mgt consulted, agree with PRN Morphine, Percocet HEROIN ABUSE discussed with Psych on Clonidine q4h, and PRN PRN Ativan POSSIBLE ALCOHOL WITHDRAWAL exhibiting signs of alcohol withdrawal Librium protocol ordered PRN Ativan HYPERTENSION Amlodipine 5mg added Lisinopril DVT Prophylaxis SCDs for now until BP controlled Admission and Anticipated Discharge Date Admission Date: January 22, 2022 Subjective Follow-up for vertebral osteomyelitis, heroin abuse, etc. Seen sleeping, not in distress Just received Ativan 3 mg IV Per [employer], patient has been restless, hallucinating, confused Reporting pain this morning Full ROS difficult to obtain due to patient's mental status Review of Systems Review of Systems: all noted and negative except for above Physical Exam Physical Exam: General- drowsy, not in distress, breathing with no effort or accessory muscle use Eyes- anicteric Neck- no JVD Lungs- clear breath sounds bilaterally, no rales/wheezes Heart- tachycardic, regular rhythm; no murmurs Abdomen- normal bowel sounds, nondistended, soft, nontender Extremities- no pretibial edema, no calf tenderness Neuro- drowsy; no gross focal neurologic deficits Skin- warm & dry Results & Data Results & Data ([facility]) Vital Signs (Past 12 Hours) Vital Signs Temp Pulse Pulse Resp BP Pulse Ox 01/24/22 11:58 121 H 01/24/22 11:16 36.8 C 103 H 24 177/113 H 90 01/24/22 06:00 37.2 C 128 H 24 186/101 H 95 01/24/22 05:47 149 H 01/24/22 04:40 145 H 171/101 H 01/24/22 03:15 36.7 C 135 H 18 202/148 H 97 all noted and reviewed including below
--- NOTE | 2022-01-24 14:03 | Communication Note ---
Date of Service: January 24, 2022 case reviewed earlier today Dr. Holly as patient is somewhat dismissive of our service. Suspect that she has been abusing Ativan from the street as well as Etoh and would be at particular risk of DTs/seizure at this point in hospitalization and BP/P remain significantly elevated despite clonidine. Initially recommended Neurontin loading and AWSS protocol but agree with hospitalist decision to move straight to [facility] given AWSS scores. Defer benzo drip/floor status to hospitalist service.
[2022-01-24] MEDS ORDERED: GABAPENTIN 600 MG TAB PO SCH (14:30)
[2022-01-24] MEDS: SODIUM CHLORIDE 0.9% 1000ML 1,000 ML IV SCH (16:56)
[2022-01-24] MEDS: chlordiazePOXIDE HCl 25 MG CAP PO SCH ×2 (19:34→23:21)
[2022-01-25] MEDS: cloNIDine HCL 0.1 MG TAB PO PRN ×2 (00:47→04:01)
[2022-01-25] MEDS: MoRPHine SULFATE 4 MG/ML 1 ML CARP\\VIAL IV PRN ×5 (01:13→17:11)
[2022-01-25] MEDS: LORazepam 2 MG/1 ML VIAL IV PRN ×11 (02:10→22:58)
[2022-01-25] MEDS: hydrALAZINE HCL 20 MG/ML VIAL IV PRN ×2 (03:38→10:20)
[2022-01-25] MEDS: VANCOMYCIN HCL 1,000 MG in SODIUM CHLORIDE 0.9% 250 ML IV SCH ×2 (04:02→12:30)
[2022-01-25] MEDS ORDERED: GABAPENTIN 600 MG TAB PO SCH (04:30)
[2022-01-25] MEDS: chlordiazePOXIDE HCl 25 MG CAP PO SCH ×3 (05:52→20:03)
[2022-01-25] MEDS: oxyCODONE/ACETAMINOPHEN 5mg/325mg TAB PO PRN (06:08)
[2022-01-25 06:27] LABS: Basophils # (auto) 0.02 K/uL (0-0.2); Basophils % (auto) 0.1 %; Eosinophils # (auto) 0.01 K/uL (0-0.5); Eosinophils % (auto) 0.1 %; Hematocrit (blood only) 39.3 % (37-47); Hemoglobin 13.1 g/dL (12.0-16.0); Immature Granulocytes # (auto) 0.07 K/uL (0.00-0.02); Immature Granulocytes % (auto) 0.4 %; Lymphocytes # (auto) 2.28 K/uL (1.2-3.4); Lymphocytes % (auto) 14.3 %; Mean Corpuscular Hemoglobin 26.8 pg (25-34); Mean Corpuscular Hgb Conc 33.3 g/dL (32-36); Mean Corpuscular Volume 80.5 fL (80-100); Mean Platelet Volume 10.1 fL (7.4-10.4); Monocytes # (auto) 1.36 K/uL (0.11-0.59); Monocytes % (auto) 8.5 %; Neutrophils # (auto) 12.21 K/uL (1.4-6.5); Neutrophils % (auto) 76.6 %; Platelet Count 376 K/uL (130-400); Red Blood Count 4.88 M/uL (4.2-5.4); White Blood Count 15.95 K/uL (4.8-10.8)
[2022-01-25 06:52] LABS: Albumin Level 3.6 gm/dl (3.4-5.0); BUN Creatinine Ratio 26.9 (10-20); Bilirubin Direct 0.2 mg/dl (0-0.2); Bilirubin,Total 0.5 mg/dl (0.2-1.0); Calcium 9.1 mg/dl (8.5-10.1); Creatinine Clr Calc Pharmacy 113.2 ml/min; Est GFR (African American) 128.2 ml/min; Est GFR (Non-African American) 110.6 ml/min; Potassium 3.2 mmol/L (3.5-5.1); Total Protein 8.6 gm/dl (6.0-8.3)
[2022-01-25] MEDS: LIDOCAINE 5% 1 PATCH TD SCH (08:10)
[2022-01-25] MEDS: cloNIDine HCL 0.1 MG TAB PO SCH ×4 (08:10→20:03)
[2022-01-25] MEDS: lisinopril 40 MG TAB PO SCH (08:10)
[2022-01-25] MEDS: NICOTINE 21 MG/24 HR TDSY TD SCH (08:11)
[2022-01-25] MEDS: amLODIPine BESYLATE 5 MG TAB PO SCH (08:11)
[2022-01-25] MEDS: PANTOprazole 40 MG TAB PO SCH (08:11)
[2022-01-25] MEDS: OXYBUTYNIN CHLORIDE XL 5 MG TABCR PO SCH (08:12)
[2022-01-25] MEDS: THIAMINE HCL 100 MG in SYRINGE 9 ML IV SCH (08:14)
[2022-01-25] MEDS: FOLIC ACID 1 MG in SYRINGE 9.8 ML IV SCH (08:14)
[2022-01-25] MEDS: SODIUM CHLORIDE 0.9% 1000ML 1,000 ML IV SCH (08:44)
[2022-01-25] MEDS: POTASSIUM CHLORIDE / WTR 10 MEQ/100 ML PLCT IV SCH ×4 (08:47→12:46)
--- NOTE | 2022-01-25 09:52 | Communication Note ---
Date of Service: January 25, 2022 Interim history reviewed. Case discussed with Dr. Holly briefly as no additional psych recs at this time. She does have AMS compared to last contact with her service between overly sedated to calling out/threatening to leave but is too tremulous, confused, marked elevated BP and P. She has significant AMS due to withdrawal delirium so does not have capacity to leave AMA at this time. Dr. Farrell to assume primary clinical responsibility for consult services at 1700 hrs. Please contact liaison if additional questions/concerns re: this patient.
[2022-01-25] MEDS ORDERED: MoRPHine SULFATE 4 MG/ML 1 ML CARP\\VIAL IV STA (10:55)
[2022-01-25] MEDS ORDERED: VANCOMYCIN TROUGH ONE (11:30)
--- NOTE | 2022-01-25 12:33 | Pharmacy Report ---
Pharmacy Vanc AUC Short Note - Date of Service January 25, 2022 - Assessment & Plan Assessment 51 year old F receiving vancomycin for treatment of bacteremia/osteo/discitis. Pertinent microbiologic data includes: 01/22 blood cultures positive for MRSA, 01/24 set negative at 24 hours Day # 5 of 6 weeks of suggested therapy Plan Vancomycin * AUC/SEAMUS is the preferred PK/PD target for vancomycin * AUC guided dosing is effective and associated with decreased risk of ne phrotoxicity compared to traditional trough targets * Trough level of 9.3 mcg/mL is not predicted to achieve target AUC/SEAMUS of 400- 600 mg/L.hr * Will adjust dose to 1500 mg q8H which is predicted to achieve target AUC of 564 mg/L.hr and may be associated with a 9% risk of nephrotoxicity * Trough ordered for 01/26 @ 1230 Pharmacy will continue to follow and will adjust dose/frequency as necessary. Thank you.
[2022-01-25] MEDS: VANCOMYCIN HCL 1,500 MG in SODIUM CHLORIDE 0.9% 500 ML IV SCH ×2 (14:09→21:32)
[2022-01-25] MEDS: NSS + 20MEQ KCL 20 MEQ/1,000 ML BAG IV SCH (14:09)
--- NOTE | 2022-01-25 16:52 | Hospitalist Progress Note ---
Date of Service January 25, 2022 Assessment & Plan (1) Vertebral osteomyelitis: (2) Heroin abuse: Plan: VERTEBRAL OSTEOMYELITIS, DISCITIS IN THE SETTING OF HEROIN ABUSE blood culture 1: MRSA blood culture 2: pending TT Echo: no signs of vegetation on Vanco ID consulted: recommend 6 weeks of IV Vanco in a SNF or drug rehab consulted Ortho as well Pain Mgt consulted, agree with PRN Morphine, Percocet HEROIN ABUSE discussed with Psych on Clonidine q4h, and PRN PRN Ativan still with signs of withdrawal also on Morphine, Percocet PRN monitor closely POSSIBLE ALCOHOL WITHDRAWAL exhibiting signs of alcohol withdrawal AWSS high on Librium protocol PRN Ativan monitor closely seizure precautions electrolytes replaced HYPERTENSION Amlodipine 5mg added on usual Lisinopril Metoprolol on hold as patient on Clonidine improving this afternoon monitor closely discussed with RN Gabriel DVT Prophylaxis SCDs for now until BP controlled plan of care discussed with patient in detail and at length all questions answered she is understanding, agreeable, comfortable with the plan of care Admission and Anticipated Discharge Date Admission Date: January 22, 2022 Subjective ff up for vertebral osteomyelitis, heroin withdrawal etc. seen with HORSE RANCHER at bedside throughout whole encounter sleeping but easily awakened oriented x 2, answers questions appropriately reports severe back pain, just received morphine IV no chest pain, dyspnea, palpitations, dizziness AWSS elevated 15-20, given appropriate Ativan IV per criteria appetite fair no other symptoms, issues noted Review of Systems Review of Systems: all noted and negative except for above Physical Exam Physical Exam: General- oriented x 2, not in distress, speaks in sentences with no effort or accessory muscle use somewhat anxious but cooperative Eyes- anicteric Neck- no JVD Lungs- clear breath sounds bilaterally, no rales/wheezes Heart- tachycardic, regular rhythm; no murmurs Abdomen- normal bowel sounds, nondistended, soft, nontender Extremities- no pretibial edema, no calf tenderness Neuro- alert, oriented x 3; no gross focal neurologic deficits Skin- warm & dry Results & Data Results & Data ([facility]) Vital Signs (Past 12 Hours) Vital Signs Temp Pulse Pulse Resp BP BP Pulse Ox 01/25/22 14:56 125 H 01/25/22 14:13 36.8 C 120 H 48 H 155/90 H 98 01/25/22 12:37 36.8 C 117 H 43 H 143/92 H 96 01/25/22 12:00 01/25/22 11:25 36.8 C 126 H 34 H 128/92 97 01/25/22 10:06 36.8 C 119 H 24 163/112 H 96 01/25/22 09:44 131 H 01/25/22 08:04 36.5 C 138 H 41 H 165/109 H 98 01/25/22 08:00 Pulse Ox 01/25/22 14:56 01/25/22 14:13 01/25/22 12:37 01/25/22 12:00 98 01/25/22 11:25 01/25/22 10:06 01/25/22 09:44 01/25/22 08:04 01/25/22 08:00 95 all noted and reviewed including below
[2022-01-25] MEDS ORDERED: ACETAMINOPHEN 1,000 MG/100 ML VIAL IV SCH (17:15)
[2022-01-25] MEDS ORDERED: LORazepam 2 MG/1 ML VIAL IV STA (17:58)
--- NOTE | 2022-01-25 23:09 | Critical Care Consultation ---
Date of Consultation January 25, 2022 Assessment & Plan (1) Admitted to intensive care unit: Reason Critically Ill: 51-year-old female admitted for osteomyelitis of the L4-5 vertebral bodies who is experiencing likely withdrawal symptoms from polysubstance abuse. NEURO - * CAM ICU: NEGATIVE * Polysubstance withdrawal: * Apparently became increasingly agitated today receiving approximately 21 mg of IV Ativan. * Patient calm and communicative upon my assessment in room 207. * Patient does not require initiation of Precedex or other medication at this point. * Continue with AWSS scale and PRN ativan dosing for now. * Precedex gtt if needed. * Patient is somnolent on my initial evaluation, but does answer questions appropriately and does engage in conversation. CARDIAC/VASCULAR - * HTN: * Continue PRN IV Rx as needed. * Echo (01/23): EF 60-65%, w/o vegitations noted. * Monitor on telemetry. RESPIRATORY - * Saturating well on room air GI/NUTRITION - * Progress diet as tolerated. RENAL/LYTES - * Hypokalemia: * Replace appropriately. - * No concerns at this time. ENDO - * No h/o DM or Thyroid Dz * BSGs per unit protocol. ISS --> gtt per unit policy. HEME - * Jesse H&H ID - * L4-L5 Vertebral Osteomyelitis: * Continue w/ IV Vanc for 6 wks per ID recommendation. * Defer to primary service regarding outpatient vs in patient management given h/o IV polysubstance abuse. * Ortho spine consulted by phone on hospital day 1. [place] not to be surgical. Without abscess or other significant findings. * MRSA Bacteremia: * Repeat cultures on 01/24 w/o active growth. Continue to follow these culture results. LINES/IV ACCESS - * PIVs x2 DVT PROPHYLAXIS - * Lovenox * SCDs I have personally spent 32 minutes of critical care time in the direct management of this patient. This is a life/limb threatening event. This includes time spent evaluating patient, direct bedside care, chart review, placing orders, interpretation of diagnostic studies, discussion with consultants, patient, and family members, as well as other required patient management activities. This time is exclusive of all separately billable procedures, and teaching time and separate from and in addition to any other critical care service time. Thank you for allowing us to participate in the care of this patient. Please refer to my attending physician's documentation for any further recommendations. (2) Vertebral osteomyelitis: (3) Leukocytosis: (4) Heroin abuse: (5) Alcohol abuse: (6) Benzodiazepine abuse: (7) Cannabis abuse: Supervising Physician Co-Signing Physician Notes Patient seen and examined. EMR reviewed. Discussed with critical care SAMIA. Please refer to my progress note from 01/26/2022 for full details. History of Present Illness Attending Physician: Aren Holly MD History of Present Illness Patient is a 51-year-old female with a significant past medical history of IV drug abuse, polysubstance abuse, and alcohol abuse. She initially presented to this facility on 01/22 with complaints of low back pain. Patient was found to have pain out of proportion of exam and leukocytosis in excess of 16,000. MRI concerning for osteomyelitis of the lumbar spine with concerns for discitis. Imaging results were reviewed with [facility] orthopedic spine surgery who did not feel surgical intervention was necessary at the time. Patient was started on broad-spectrum antibiotics and admitted to this institution. Unfortunately, throughout her stay, there has been issues with likely withdrawal from regular daily recreational drug use. She apparently uses significant amounts of heroin every day. Additionally, there is question of alcohol abuse and benzodiazepine abuse. Patient has been receiving large quantities of opiates as well as Ativan throughout her stay. She apparently became increasingly agitated today and required a heavy amount of IV Ativan. Concerns for possible need for advanced medications for management of patient's delirium. Upon evaluation in room 207, the patient is drowsy, but does answer questions appropriately. She reports that she became agitated today as she was under the impression that she was going to be discharged home today, however she feels as though she was lied to. Patient has been evaluated by psychiatry during stay given statements she had made. She does admit that she does feel as though she is withdrawing from opiates. Her symptoms have been controlled with heavy doses of Ativan. She complains of low back pain but offers no other complaints otherwise at this point. Allergies Allergy/AdvReac Type Severity Reaction Status Date / Time No Known Allergies Allergy Verified 11/11/02 19:43 Home Medications Medication Instructions Recorded Confirmed Type hydrochlorothiazide 25 mg tablet 25 mg PO DAILY 01/22/22 01/22/22 History lisinopril 40 mg tablet 40 mg PO DAILY 01/22/22 01/22/22 History metoprolol succinate 25 mg 25 mg PO DAILY 01/22/22 01/22/22 History tablet,extended release 24 hr omeprazole 20 mg capsule,delayed 20 mg PO DAILY 01/22/22 01/22/22 History release oxybutynin chloride 10 mg 10 mg PO DAILY 01/22/22 01/22/22 History tablet,extended release 24 hr trazodone 50 mg tablet 50 mg PO HS 01/22/22 01/22/22 History Patient History Medical History Chronic low back pain Heroin abuse Social History Smoking Status: Current every day smoker Hx Alcohol Use: Yes Alcohol type: beer, wine and hard liquor Hx Substance Use: Yes Non-Prescribed Medications: Heroin Last Used Substance: Just Prior to Arrival Substance Use Type Other:: taking lorazepam Preferred Language: Omani Communication Ability: Effective Elementary Reading Specialist Required: No Beliefs That Will Affect Care: None Current Living Situation: Alone Other Information That Helps Us Care for You: No Feels Safe at Home: Yes Safety Concerns: Feels Safe At This Time Assistive Devices: None Review of Systems Review of Systems: All systems reviewed & are unremarkable except as noted in HPI & below Physical Exam Physical Exam: VITAL SIGNS - Vital signs and nursing notes were reviewed. GENERAL - 51-year-old female appearing older than her stated age who is in no acute distress. Drowsy, but communicates well with provider and answers questions appropriately. SKIN - Track harding up both arms. HEAD - NC/AT. EYES - PERRL with EOMI bilaterally. Sclera anicteric. EARS - No deformities of external structures noted on gross examination bilaterally. NOSE - Midline and without cyanosis. No epistaxis or purulent drainage noted. MOUTH/OROPHARYNX - Without perioral cyanosis. Buccal mucosa pink and dry. NECK - Neck with FROM. Supple to palpation. No lymphadenopathy noted. No nuchal rigidity. LUNGS - Chest wall symmetric without accessory muscle use, intercostals retractions, or central cyanosis. Normal vesicular breath sounds CTA B/L. No wheezes, rales, or rhonchi appreciated. CARDIAC - RRR with S1/S2. No murmur, rubs, or gallops appreciated. ABDOMEN - Abdominal contour obese without pulsations or visible masses. BS normoactive all four quadrants. No tenderness, palpable masses, hepatosplenomegaly, or ascites noted. EXTREMITIES - No clubbing or peripheral cyanosis. No pretibial edema present. +3/5 radial and dorsalis pedis pulses palpated throughout. +5/5 strength noted in UE/LE bilaterally. NEUROLOGIC - Cranial nerves II through XII grossly intact. Sensory intact to light touch throughout. Patellar reflexes +2/4. PSYCH - Drowsy but A&Ox3 and cooperates fully with examiner. Results & Data Results & Data ([facility]) Vital Signs (Past 12 Hours) Vital Signs Temp Pulse Pulse Resp BP BP BP 01/25/22 23:00 86 42 H 158/75 H 01/25/22 22:00 36.8 C 103 H 26 H 159/86 H 01/25/22 18:58 36.6 C 112 H 27 H 158/89 H 01/25/22 16:00 01/25/22 14:56 125 H 01/25/22 14:13 36.8 C 120 H 48 H 155/90 H 01/25/22 12:37 36.8 C 117 H 43 H 143/92 H 01/25/22 12:00 01/25/22 11:25 36.8 C 126 H 34 H 128/92 Pulse Ox Pulse Ox 01/25/22 23:00 97 01/25/22 22:00 98 01/25/22 18:58 97 01/25/22 16:00 98 01/25/22 14:56 01/25/22 14:13 98 01/25/22 12:37 96 01/25/22 12:00 98 01/25/22 11:25 97 Coding Level of Care Code Critical Care 1st 30-74 mins Diagnoses Admitted to intensive care unit Z78.9 Vertebral osteomyelitis M46.20 Leukocytosis D72.829 Heroin abuse F11.10 Alcohol abuse F10.10 Benzodiazepine abuse F13.10 Cannabis abuse F12.10 Time Spent (min) 32
[2022-01-26] MEDS: NSS + 20MEQ KCL 20 MEQ/1,000 ML BAG IV SCH ×2 (00:31→13:30)
[2022-01-26] MEDS: chlordiazePOXIDE HCl 25 MG CAP PO SCH ×3 (01:48→16:28)
[2022-01-26] MEDS: LORazepam 2 MG/1 ML VIAL IV PRN ×7 (01:48→18:49)
[2022-01-26] MEDS: hydrALAZINE HCL 20 MG/ML VIAL IV PRN ×2 (02:45→16:52)
[2022-01-26] MEDS: cloNIDine HCL 0.1 MG TAB PO PRN (05:13)
[2022-01-26] MEDS: VANCOMYCIN HCL 1,500 MG in SODIUM CHLORIDE 0.9% 500 ML IV SCH ×3 (05:19→20:13)
[2022-01-26 05:29] LABS: Basophils # (auto) 0.01 K/uL (0-0.2); Basophils % (auto) 0.1 %; Eosinophils # (auto) 0.05 K/uL (0-0.5); Eosinophils % (auto) 0.4 %; Hemoglobin 12.2 g/dL (12.0-16.0); Immature Granulocytes # (auto) 0.07 K/uL (0.00-0.02); Immature Granulocytes % (auto) 0.6 %; Lymphocytes # (auto) 1.66 K/uL (1.2-3.4); Lymphocytes % (auto) 13.4 %; Mean Corpuscular Hemoglobin 25.9 pg (25-34); Mean Corpuscular Volume 78.6 fL (80-100); Mean Platelet Volume 9.8 fL (7.4-10.4); Monocytes # (auto) 1.02 K/uL (0.11-0.59); Monocytes % (auto) 8.2 %; Neutrophils % (auto) 77.3 %; Platelet Count 315 K/uL (130-400); RDW Standard Deviation 43.7 fL (36.4-46.3); Red Blood Count 4.71 M/uL (4.2-5.4); White Blood Count 12.41 K/uL (4.8-10.8)
[2022-01-26 05:55] LABS: Albumin Level 3.2 gm/dl (3.4-5.0); BUN Creatinine Ratio 28.6 (10-20); Bilirubin Direct 0.1 mg/dl (0-0.2); Bilirubin,Total 0.4 mg/dl (0.2-1.0); Calcium 8.9 mg/dl (8.5-10.1); Creatinine Clr Calc Pharmacy 138.2 ml/min; Est GFR (African American) 137.5 ml/min; Est GFR (Non-African American) 118.7 ml/min; Magnesium 1.8 mg/dl (1.7-2.4); Phosphorus 2.8 mg/dl (2.5-4.9); Potassium 3.5 mmol/L (3.5-5.1); Total Protein 7.6 gm/dl (6.0-8.3)
[2022-01-26] MEDS: cloNIDine HCL 0.1 MG TAB PO SCH ×4 (07:45→20:16)
[2022-01-26] MEDS: THIAMINE HCL 100 MG in SYRINGE 9 ML IV SCH (07:48)
[2022-01-26] MEDS: FOLIC ACID 1 MG in SYRINGE 9.8 ML IV SCH (07:48)
[2022-01-26] MEDS: NICOTINE 21 MG/24 HR TDSY TD SCH (07:52)
[2022-01-26] MEDS: PANTOprazole 40 MG TAB PO SCH (07:52)
[2022-01-26] MEDS: LIDOCAINE 5% 1 PATCH TD SCH (07:53)
[2022-01-26] MEDS: amLODIPine BESYLATE 5 MG TAB PO SCH (07:53)
[2022-01-26] MEDS: OXYBUTYNIN CHLORIDE XL 5 MG TABCR PO SCH (07:53)
[2022-01-26] MEDS: lisinopril 40 MG TAB PO SCH (07:54)
[2022-01-26] MEDS: MoRPHine SULFATE 4 MG/ML 1 ML CARP\\VIAL IV PRN ×3 (07:54→20:18)
--- NOTE | 2022-01-26 07:59 | Critical Care Progress Note ---
Date of Service January 26, 2022 Assessment & Plan (1) Admitted to intensive care unit: Plan: Reason Critically Ill: 51-year-old female admitted for osteomyelitis of the L4-5 vertebral bodies who is experiencing likely withdrawal symptoms from polysubstance abuse. Overnight events: Patient transferred to the ICU due to concern about encephalopathy. There was concern about withdrawal. She did not require any medications overnight and is hemodynamically stable. NEURO -metabolic encephalopathy: Continue supportive care. There likely is a component of withdrawal. Judicious use of benzodiazepines is recommended. CARDIAC/VASCULAR - * HTN: * Continue PRN IV Rx as needed. * Echo (01/23): EF 60-65%, w/o vegitations noted. * Monitor on telemetry. RESPIRATORY - * Saturating well on room air GI/NUTRITION - * Progress diet as tolerated. RENAL/LYTES - * Hypokalemia: * Replace appropriately. - * No concerns at this time. ENDO - * No h/o DM or Thyroid Dz * BSGs per unit protocol. ISS --> gtt per unit policy. HEME - * Jesse H&H ID - * L4-L5 Vertebral Osteomyelitis: Surveillance cultures from 01/24/2022 have shown no growth to date * Continue w/ IV Vanc for 6 wks per ID recommendation. * Defer to primary service regarding outpatient vs in patient management given h/o IV polysubstance abuse. * Ortho spine consulted by phone on hospital day 1. [place] not to be surgical. Without abscess or other significant findings. * MRSA Bacteremia: * Repeat cultures on 01/24 w/o active growth. Continue to follow these culture results. LINES/IV ACCESS - * PIVs x2 DVT PROPHYLAXIS - * Lovenox * SCDs The patient is stable. She is certainly at risk for withdrawal symptoms but appears to be stable currently. No indication for advanced therapies. Okay to transfer back to the floor. Critical care services will sign off. Feel free to contact us with questions or concerns (2) Vertebral osteomyelitis: (3) Leukocytosis: (4) Heroin abuse: (5) Alcohol abuse: (6) Benzodiazepine abuse: (7) Cannabis abuse: Admission and Anticipated Discharge Date Admission Date: January 22, 2022 Subjective Patient seen and examined. EMR reviewed. Discussed with critical care SAMIA from overnight as well as with bedside ICU nurse. Patient remains hemodynamically stable. She is slightly lethargic but is able to answer questions appropriately. Has been hemodynamically stable and has not required any escalation of therapy. Review of Systems Review of Systems: All systems reviewed & are unremarkable except as noted in Subjective Physical Exam Physical Exam: VITAL SIGNS - Vital signs and nursing notes were reviewed. GENERAL - 51-year-old female appearing older than her stated age who is in no acute distress. Drowsy, but communicates well with provider and answers questions appropriately. SKIN - Track harding up both arms. HEAD - NC/AT. EYES - PERRL with EOMI bilaterally. Sclera anicteric. EARS - No deformities of external structures noted on gross examination bilaterally. NOSE - Midline and without cyanosis. No epistaxis or purulent drainage noted. MOUTH/OROPHARYNX - Without perioral cyanosis. Buccal mucosa pink and dry. NECK - Neck with FROM. Supple to palpation. No lymphadenopathy noted. No nuchal rigidity. LUNGS - Chest wall symmetric without accessory muscle use, intercostals retractions, or central cyanosis. Normal vesicular breath sounds CTA B/L. No wheezes, rales, or rhonchi appreciated. CARDIAC - RRR with S1/S2. No murmur, rubs, or gallops appreciated. ABDOMEN - Abdominal contour obese without pulsations or visible masses. BS normoactive all four quadrants. No tenderness, palpable masses, hepatosplenomegaly, or ascites noted. EXTREMITIES - No clubbing or peripheral cyanosis. No pretibial edema present. +3/5 radial and dorsalis pedis pulses palpated throughout. +5/5 strength noted in UE/LE bilaterally. NEUROLOGIC - Cranial nerves II through XII grossly intact. Sensory intact to light touch throughout. Patellar reflexes +2/4. PSYCH - Drowsy but A&Ox3 and cooperates fully with examiner. Results & Data Results & Data ([facility]) Vital Signs (Past 12 Hours) Vital Signs Temp Pulse Resp BP Pulse Ox 01/26/22 07:00 118 H 14 96 01/26/22 06:00 126 H 26 H 153/76 H 97 01/26/22 05:00 115 H 181/103 H 97 01/26/22 04:00 112 H 32 H 157/85 H 96 01/26/22 03:00 36.5 C 114 H 30 H 168/97 H 97 01/26/22 02:00 105 H 24 164/102 H 96 01/26/22 01:00 104 H 32 H 166/99 H 97 01/26/22 00:00 96 H 34 H 152/91 H 96 01/25/22 23:00 86 42 H 158/75 H 97 01/25/22 22:00 36.8 C 103 H 26 H 159/86 H 98 Critical Care Results & Data Vital Signs (Past 12 Hours) Vital Signs Temp Pulse Resp BP Pulse Ox 01/26/22 07:00 118 H 14 96 01/26/22 06:00 126 H 26 H 153/76 H 97 01/26/22 05:00 115 H 181/103 H 97 01/26/22 04:00 112 H 32 H 157/85 H 96 01/26/22 03:00 36.5 C 114 H 30 H 168/97 H 97 01/26/22 02:00 105 H 24 164/102 H 96 01/26/22 01:00 104 H 32 H 166/99 H 97 01/26/22 00:00 96 H 34 H 152/91 H 96 01/25/22 23:00 86 42 H 158/75 H 97 01/25/22 22:00 36.8 C 103 H 26 H 159/86 H 98 Lab & Micro Results (Past 24 Hours) RBC 4.71 M/uL (4.2-5.4) 01/26/22 WBC 12.41 K/uL (4.8-10.8) H 01/26/22 Hgb 12.2 g/dL (12.0-16.0) 01/26/22 Hct 37.0 % (37-47) 01/26/22 MCV 78.6 fL (80-100) L 01/26/22 MCH 25.9 pg (25-34) 01/26/22 MCHC 33.0 g/dL (32-36) 01/26/22 RDW Standard Deviation 43.7 fL (36.4-46.3) 01/26/22 RDW Coefficient of Variation 15.0 % (11.5-14.5) H 01/26/22 Plt Count 315 K/uL (130-400) 01/26/22 MPV 9.8 fL (7.4-10.4) 01/26/22 Neutrophils (%) (Auto) 77.3 % 01/26/22 Lymphocytes (%) (Auto) 13.4 % 01/26/22 Monocytes # (Auto) 1.02 K/uL (0.11-0.59) H 01/26/22 Eosinophils # (Auto) 0.05 K/uL (0-0.5) 01/26/22 Immature Granulocyte % (Auto) 0.6 % 01/26/22 Neutrophils # (Auto) 9.60 K/uL (1.4-6.5) H 01/26/22 Lymphocytes # (Auto) 1.66 K/uL (1.2-3.4) 01/26/22 Monocytes # (Auto) 1.02 K/uL (0.11-0.59) H 01/26/22 Eosinophils # (Auto) 0.05 K/uL (0-0.5) 01/26/22 Basophils # (Auto) 0.01 K/uL (0-0.2) 01/26/22 Immature Granulocyte # (Auto) 0.07 K/uL (0.00-0.02) H 01/26/22 Na 135 mmol/L (136-145) L 01/26/22 K 3.5 mmol/L (3.5-5.1) 01/26/22 Cl 105 mmol/L (98-107) 01/26/22 CO2 19 mmol/L (21-32) L 01/26/22 Anion Gap 11 (3-11) 01/26/22 BUN 12 mg/dl (6-23) 01/26/22 Creatinine 0.42 mg/dl (0.6-1.2) L 01/26/22 Estimated GFR ( Amer) 137.5 ml/min 01/26/22 Estimated GFR (Non-Af Amer) 118.7 ml/min 01/26/22 BUN/Creatinine Ratio 28.6 (10-20) H 01/26/22 Glu 158 mg/dl (70-99(Fasting)) H 01/26/22 Ca 8.9 mg/dl (8.5-10.1) 01/26/22 Phosphorus Level 2.8 mg/dl (2.5-4.9) 01/26/22 Total Bilirubin 0.4 mg/dl (0.2-1.0) 01/26/22 Direct Bilirubin 0.1 mg/dl (0-0.2) 01/26/22 AST 22 U/L (13-39) 01/26/22 ALT 29 U/L (7-52) 01/26/22 Alkaline Phosphatase 115 U/L (34-104) H 01/26/22 TP 7.6 gm/dl (6.0-8.3) 01/26/22 Albumin 3.2 gm/dl (3.4-5.0) L 01/26/22 Mg 1.8 mg/dl (1.7-2.4) 01/26/22 04:38 01/26/22 Calcium Level 8.9 mg/dl (8.5-10.1) 01/26/22 04:38 01/26/22 Microbiology 01/24/22 10:09 Aerobic Blood Culture - Preliminary Blood No growth in Aerobic bottle after 24 hours. Anaerobic Blood Culture - Preliminary No growth in Anaerobic bottle after 24 hours. 01/24/22 10:19 Aerobic Blood Culture - Preliminary Blood No growth in Aerobic bottle after 24 hours. Anaerobic Blood Culture - Preliminary No growth in Anaerobic bottle after 24 hours. I & O Totals 24 Hours 01/25/22 01/26/22 01/27/22 06:59 06:59 06:59 Intake Total 3401.2 / 3401.2 2899.333 / 2899.333 530 / 530 Output Total 1900 / 1900 Balance 1501.2 / 1501.2 2899.333 / 2899.333 530 / 530 Cumulative 01/22/22 03:35 thru 01/26/22 07:49 Intake Total 9520.533 Output Total 5600 Balance 3920.533 RT Ventilator Mngmt (Last Documented) Ventilator Ordered Settings Respiratory Rate 14 01/26/22 07:00 Ventilator - PT Measurements Respiratory Rate 14 End-Tidal CO2 10 Coding Level of Care Code 21318 Subseq Hosp Care Lvl 3 Diagnoses Admitted to intensive care unit Z78.9 Vertebral osteomyelitis M46.20 Leukocytosis D72.829 Heroin abuse F11.10 Alcohol abuse F10.10 Benzodiazepine abuse F13.10 Cannabis abuse F12.10
[2022-01-26] MEDS ORDERED: GABAPENTIN 600 MG TAB PO SCH (08:30)
[2022-01-26] MEDS ORDERED: VANCOMYCIN TROUGH ONE (12:30)
[2022-01-26] MEDS ORDERED: amLODIPine BESYLATE 5 MG TAB PO ONE (12:53)
--- NOTE | 2022-01-26 13:24 | Pharmacy Report ---
Pharmacy Vanc AUC Short Note - Date of Service January 26, 2022 - Assessment & Plan Assessment 51 year old F receiving vancomycin for treatment of bacteremia, L4-L5 Vertebral osteomyelitis. Day # 5 of antimicrobial therapy - planning 6 weeks IV therapy per ID recommendation Microbiology 01/24/22 10:19 Blood Aerobic Blood Culture - Preliminary 01/24/22 10:19 Blood Anaerobic Blood Culture - Preliminary No growth in Aerobic bottle after 48 hours. No growth in Anaerobic bottle after 48 hours. 01/24/22 10:09 Blood Aerobic Blood Culture - Preliminary 01/24/22 10:09 Blood Anaerobic Blood Culture - Preliminary No growth in Aerobic bottle after 48 hours. No growth in Anaerobic bottle after 48 hours. 01/22/22 08:30 Blood Aerobic Blood Culture - Preliminary 01/22/22 08:30 Blood Anaerobic Blood Culture - Preliminary Staph aureus MRSA Staphylococcus species 01/22/22 08:30 Blood Aerobic Blood Culture - Preliminary 01/22/22 08:30 Blood Anaerobic Blood Culture - Preliminary Staph aureus MRSA Staph aureus MRSA Plan Vancomycin * Current dose: 1500 mg IV every 8 hours * Trough level obtained 01/26 @ 1219 resulted at 15 mcg/mL * predicted AUC/SEAMUS at steady state: 557 mg/L.hr (goal 500-600 mg/L.h) * predicted steady state trough: 13.8 mcg/mL * Continue current dose - repeat trough in ~ 48 hours Pharmacy will continue to follow and will adjust dose/frequency as necessary. Thank you.
--- NOTE | 2022-01-26 18:17 | Hospitalist Progress Note ---
Date of Service January 26, 2022 Assessment & Plan (1) Vertebral osteomyelitis: (2) Heroin abuse: Plan: VERTEBRAL OSTEOMYELITIS, DISCITIS IN THE SETTING OF HEROIN ABUSE blood culture 1: MRSA blood culture 2: No growth so far after 48 hours TT Echo: no signs of vegetation on Vanco ID consulted: recommend 6 weeks of IV Vanco in a SNF or drug rehab consulted Ortho as well-pending recommendations Pain Mgt consulted, agree with PRN Morphine, Percocet HEROIN ABUSE discussed with Psych on Clonidine q4h, and PRN PRN Ativan Withdrawal symptoms seems to improved today also on Morphine, Percocet PRN monitor closely POSSIBLE ALCOHOL WITHDRAWAL exhibiting signs of alcohol withdrawal AWSS high on Librium protocol PRN Ativan monitor closely seizure precautions electrolytes replaced -- Seems to be improving today HYPERTENSION Amlodipine increased to 10 mg daily on usual Lisinopril Metoprolol on hold as patient on Clonidine monitor closely DVT Prophylaxis SCDs for now until BP controlled plan of care discussed with patient in detail and at length all questions answered she is understanding, agreeable, comfortable with the plan of care Admission and Anticipated Discharge Date Admission Date: January 22, 2022 Subjective Follow-up for vertebral osteomyelitis, alcohol/heroin withdrawal, etc. Transferred to ICU overnight for closer monitoring This afternoon, patient is sleeping but easily awakened Oriented x3, answers questions appropriately, seems to be calmer, more cooperative States back pain is improved today Less tremors, anxiety no chest pain, dyspnea, palpitations, dizziness Explained need for 6 weeks of IV antibiotics, recommended to complete therapy in fdc facility or rehab, patient agreeable Review of Systems Review of Systems: all noted and negative except for above Physical Exam Physical Exam: General- oriented x 3, not in distress, speaks in sentences with no effort or accessory muscle use Eyes- anicteric Neck- no JVD Lungs- clear breath sounds, no crackles or wheezing bilaterally Heart-mildly tachycardic, regular rhythm; no murmurs Abdomen- normal bowel sounds, nondistended, soft, nontender Extremities- no pretibial edema, no calf tenderness Neuro- alert, oriented x 3; no new gross focal neurologic deficits Skin- warm & dry Results & Data Results & Data ([facility]) Vital Signs (Past 12 Hours) Vital Signs Temp Pulse Resp BP Pulse Ox 01/26/22 16:49 104 H 47 H 186/104 H 98 01/26/22 16:00 110 H 97 01/26/22 15:00 129 H 53 H 93 01/26/22 14:00 107 H 38 H 163/93 H 96 01/26/22 13:00 120 H 35 H 189/88 H 98 01/26/22 12:00 100 H 40 H 161/87 H 99 01/26/22 11:00 37.5 C 118 H 46 H 165/91 H 96 01/26/22 10:00 121 H 63 H 156/103 H 96 01/26/22 09:00 124 H 58 H 176/98 H 97 01/26/22 08:00 36.9 C 123 H 30 H 179/103 H 97 01/26/22 07:00 118 H 14 96 all noted and reviewed including below
[2022-01-26 18:58] LABS: Amphetamine Urine, Confirm 955 ng/mL (<250); Cocaine, Urine 348 ng/mL (<100); Codeine Urine NEGATIVE ng/mL (<50); Hydrocodone Urine NEGATIVE ng/mL (<50); Hydromor Urine NEGATIVE ng/mL (<50); MDA negative; MDEA negative; MDMA (Ecstasy) Urine, Confirm negative; Marijuana Quant, GCMS Urine 78 ng/mL (<5); Methamphetamine, Ur Confirm 3020 ng/mL (<250); Morphine Urine 2650 ng/mL (<50); Norhydrocodone Conf Ur NEGATIVE ng/mL (<50); Noroxycodone Urine NEGATIVE ng/mL (<50); Oxycodone Urine NEGATIVE ng/mL (<50); Oxymorph Urine NEGATIVE ng/mL (<50)
[2022-01-27] MEDS: LORazepam 2 MG/1 ML VIAL IV PRN ×6 (00:23→22:11)
[2022-01-27] MEDS: MoRPHine SULFATE 4 MG/ML 1 ML CARP\\VIAL IV PRN ×5 (00:24→20:40)
[2022-01-27] MEDS: NSS + 20MEQ KCL 20 MEQ/1,000 ML BAG IV SCH ×2 (02:19→16:38)
[2022-01-27] MEDS: chlordiazePOXIDE HCl 25 MG CAP PO SCH ×2 (02:30→08:37)
[2022-01-27] MEDS: VANCOMYCIN HCL 1,500 MG in SODIUM CHLORIDE 0.9% 500 ML IV SCH ×3 (04:27→20:46)
[2022-01-27 05:28] LABS: Basophils # (auto) 0.03 K/uL (0-0.2); Basophils % (auto) 0.3 %; Eosinophils # (auto) 0.07 K/uL (0-0.5); Eosinophils % (auto) 0.6 %; Hematocrit (blood only) 33.1 % (37-47); Hemoglobin 11.1 g/dL (12.0-16.0); Immature Granulocytes # (auto) 0.14 K/uL (0.00-0.02); Immature Granulocytes % (auto) 1.2 %; Lymphocytes # (auto) 2.21 K/uL (1.2-3.4); Lymphocytes % (auto) 18.5 %; Mean Corpuscular Hemoglobin 26.6 pg (25-34); Mean Corpuscular Hgb Conc 33.5 g/dL (32-36); Mean Corpuscular Volume 79.2 fL (80-100); Mean Platelet Volume 9.1 fL (7.4-10.4); Monocytes # (auto) 1.11 K/uL (0.11-0.59); Monocytes % (auto) 9.3 %; Neutrophils # (auto) 8.36 K/uL (1.4-6.5); Neutrophils % (auto) 70.1 %; Platelet Count 360 K/uL (130-400); RDW Coefficient of Variation 15.2 % (11.5-14.5); RDW Standard Deviation 44.3 fL (36.4-46.3); Red Blood Count 4.18 M/uL (4.2-5.4); White Blood Count 11.92 K/uL (4.8-10.8)
[2022-01-27 05:46] LABS: Albumin Level 3.1 gm/dl (3.4-5.0); Bilirubin Direct 0.1 mg/dl (0-0.2); Bilirubin,Total 0.3 mg/dl (0.2-1.0); Calcium 8.7 mg/dl (8.5-10.1); Creatinine Clr Calc Pharmacy 138.2 ml/min; Est GFR (African American) 137.5 ml/min; Est GFR (Non-African American) 118.7 ml/min; Potassium 3.3 mmol/L (3.5-5.1); Total Protein 7.1 gm/dl (6.0-8.3)
[2022-01-27] MEDS: FOLIC ACID 1 MG in SYRINGE 9.8 ML IV SCH (07:50)
[2022-01-27] MEDS: THIAMINE HCL 100 MG in SYRINGE 9 ML IV SCH (07:50)
[2022-01-27] MEDS: cloNIDine HCL 0.1 MG TAB PO SCH ×4 (07:50→20:45)
[2022-01-27] MEDS: hydrALAZINE HCL 20 MG/ML VIAL IV PRN (07:51)
[2022-01-27] MEDS: amLODIPine BESYLATE 5 MG TAB PO SCH (07:51)
[2022-01-27] MEDS: NICOTINE 21 MG/24 HR TDSY TD SCH (07:51)
[2022-01-27] MEDS: lisinopril 40 MG TAB PO SCH (07:52)
[2022-01-27] MEDS: PANTOprazole 40 MG TAB PO SCH (07:52)
[2022-01-27] MEDS: OXYBUTYNIN CHLORIDE XL 5 MG TABCR PO SCH (07:52)
[2022-01-27] MEDS: LIDOCAINE 5% 1 PATCH TD SCH (07:53)
[2022-01-27] MEDS ORDERED: POTASSIUM CHLORIDE CRTAB 20 MEQ TABCR PO STA (08:19)
[2022-01-27] MEDS ORDERED: amLODIPine BESYLATE 5 MG TAB PO ONE (15:18)
--- NOTE | 2022-01-27 16:08 | Hospitalist Progress Note ---
Date of Service January 27, 2022 Assessment & Plan (1) Vertebral osteomyelitis: (2) Heroin abuse: Plan: VERTEBRAL OSTEOMYELITIS, DISCITIS IN THE SETTING OF HEROIN ABUSE blood culture 1: MRSA blood culture 2: No growth so far after 48 hours TT Echo: no signs of vegetation on Vanco ID consulted: recommend 6 weeks of IV Vanco in a SNF or drug rehab consulted Ortho as well-pending recommendations Pain Mgt consulted, agree with PRN Morphine, Percocet HEROIN ABUSE discussed with Psych on Clonidine q4h, and PRN PRN Ativan had confusion overnight and earlier today continue Clonidine, PRN Ativan also on Morphine, Percocet PRN monitor closely POSSIBLE ALCOHOL WITHDRAWAL exhibiting signs of alcohol withdrawal AWSS high on Librium protocol PRN Ativan monitor closely seizure precautions electrolytes replaced -- as per above HYPERTENSION Amlodipine increased to 10 mg daily on usual Lisinopril Metoprolol on hold as patient on Clonidine may add PO hydralazine monitor closely DVT Prophylaxis SCDs for now until BP controlled plan of care discussed with patient in detail and at length all questions answered she is understanding, agreeable, comfortable with the plan of care Admission and Anticipated Discharge Date Admission Date: January 22, 2022 Subjective ff up for alcohol withdrawal, etc seen resting in bed, sleeping per RN was confused again earlier today trying to leave ama easily reoriented ate her lunch no other issues/symptoms notes Review of Systems Review of Systems: all noted and negative except for above Physical Exam Physical Exam: General- sleeping, breathing with no effort or accessory muscle use Eyes- anicteric Neck- no JVD Lungs- clear BS bilaterally, no rales/wheezes Heart- normal rate, regular rhythm; no murmurs Abdomen- normal bowel sounds, nondistended, soft, nontender Extremities- no pretibial edema, no calf tenderness Neuro- sleeping Skin- warm & dry Results & Data Results & Data ([facility]) Vital Signs (Past 12 Hours) Vital Signs Temp Pulse Pulse Resp BP BP Pulse Ox 01/27/22 15:21 36.5 C 105 H 37 H 175/94 H 97 01/27/22 14:00 117 H 36 H 01/27/22 12:02 36.5 C 99 H 24 168/88 H 99 01/27/22 10:00 119 H 38 H 160/88 H 01/27/22 08:00 37.4 C 110 H 19 200/104 H 97 all noted and reviewed including below
[2022-01-27] MEDS ORDERED: GABAPENTIN 600 MG TAB PO SCH (20:30)
[2022-01-27] MEDS ORDERED: hydrALAZINE HCL 25 MG TAB PO SCH (21:45)
[2022-01-28] MEDS: MoRPHine SULFATE 4 MG/ML 1 ML CARP\\VIAL IV PRN ×3 (00:55→11:13)
[2022-01-28] MEDS: LORazepam 2 MG/1 ML VIAL IV PRN ×5 (00:55→22:00)
[2022-01-28] MEDS ORDERED: VANCOMYCIN TROUGH ONE (04:30)
[2022-01-28 04:32] LABS: Basophils # (auto) 0.03 K/uL (0-0.2); Basophils % (auto) 0.3 %; Eosinophils # (auto) 0.08 K/uL (0-0.5); Eosinophils % (auto) 0.7 %; Hematocrit (blood only) 31.8 % (37-47); Hemoglobin 10.6 g/dL (12.0-16.0); Immature Granulocytes # (auto) 0.17 K/uL (0.00-0.02); Immature Granulocytes % (auto) 1.6 %; Lymphocytes # (auto) 2.53 K/uL (1.2-3.4); Lymphocytes % (auto) 23.6 %; Mean Corpuscular Hemoglobin 26.6 pg (25-34); Mean Corpuscular Hgb Conc 33.3 g/dL (32-36); Mean Corpuscular Volume 79.9 fL (80-100); Monocytes # (auto) 0.95 K/uL (0.11-0.59); Monocytes % (auto) 8.9 %; Neutrophils # (auto) 6.95 K/uL (1.4-6.5); Neutrophils % (auto) 64.9 %; Platelet Count 416 K/uL (130-400); RDW Coefficient of Variation 15.3 % (11.5-14.5); RDW Standard Deviation 44.9 fL (36.4-46.3); Red Blood Count 3.98 M/uL (4.2-5.4); White Blood Count 10.71 K/uL (4.8-10.8)
[2022-01-28 04:52] LABS: BUN Creatinine Ratio 23.3 (10-20); Calcium 8.7 mg/dl (8.5-10.1); Creatinine Clr Calc Pharmacy 134.7 ml/min; Est GFR (African American) 136.5 ml/min; Est GFR (Non-African American) 117.8 ml/min; Potassium 3.9 mmol/L (3.5-5.1)
[2022-01-28] MEDS: VANCOMYCIN HCL 1,500 MG in SODIUM CHLORIDE 0.9% 500 ML IV SCH ×3 (05:06→21:10)
[2022-01-28] MEDS: NSS + 20MEQ KCL 20 MEQ/1,000 ML BAG IV SCH ×3 (06:36→20:16)
[2022-01-28] MEDS: amLODIPine BESYLATE 5 MG TAB PO SCH (08:10)
[2022-01-28] MEDS: lisinopril 40 MG TAB PO SCH (08:11)
[2022-01-28] MEDS: NICOTINE 21 MG/24 HR TDSY TD SCH (08:11)
[2022-01-28] MEDS: LIDOCAINE 5% 1 PATCH TD SCH (08:13)
[2022-01-28] MEDS: PANTOprazole 40 MG TAB PO SCH (08:14)
[2022-01-28] MEDS: OXYBUTYNIN CHLORIDE XL 5 MG TABCR PO SCH (08:14)
[2022-01-28] MEDS: cloNIDine HCL 0.1 MG TAB PO SCH ×4 (08:15→20:18)
[2022-01-28] MEDS: FOLIC ACID 1 MG in SYRINGE 9.8 ML IV SCH (08:16)
[2022-01-28] MEDS: THIAMINE HCL 100 MG in SYRINGE 9 ML IV SCH (08:16)
--- NOTE | 2022-01-28 11:20 | Pharmacy Report ---
Pharmacy Vanc AUC Short Note - Date of Service January 28, 2022 - Assessment & Plan Assessment * 51 year old F receiving VANCOMYCIN IV for treatment of MRSA bacteremia, lumbar osteomyelitis/discitis in the setting of IV substance abuse. * Pertinent microbiologic data includes: 01/22 BLCXs = MRSA, no growth to date in repeat BLCXs from 01/24 * TTE report stated no evidence of vegetation within the scope of this imaging modality * Leukocytosis improving, afebrile * Renal fxn stable * Day # 7 of antimicrobial therapy; ID has recommended 6 wks IV abx therapy from date of 1st negative BLCXs Plan Vancomycin * AUC/SEAMUS is the preferred PK/PD target for vancomycin * AUC guided dosing is effective and associated with decreased risk of nephrotoxicity compared to traditional trough targets * Trough level of 14.8 mcg/mL is predicted to achieve target AUC/SEAMUS of 400-600 mg/L.hr and may be associated with a 9 % risk of nephrotoxicity * Continue dose of 1500 mg IV every 8 hours * Trough level ordered for: 01/30/22 Pharmacy will continue to follow and will adjust dose/frequency as necessary. Thank you.
[2022-01-28] MEDS ORDERED: hydrALAZINE HCL 25 MG TAB PO STA (18:00)
--- NOTE | 2022-01-28 19:17 | Hospitalist Progress Note ---
Date of Service January 28, 2022 delayed entry date of service noted above Assessment & Plan (1) Vertebral osteomyelitis: (2) Heroin abuse: Plan: VERTEBRAL OSTEOMYELITIS, DISCITIS IN THE SETTING OF HEROIN ABUSE blood culture 1: MRSA blood culture 2: No growth so far after 48 hours TT Echo: no signs of vegetation on Vanco ID consulted: recommend 6 weeks of IV Vanco in a SNF or drug rehab consulted Ortho as well-pending recommendations Pain Mgt consulted, agree with PRN Morphine, Percocet HEROIN ABUSE discussed with Psych on Clonidine q4h, and PRN PRN Ativan less confused continue Clonidine, PRN Ativan also on Morphine, Percocet PRN monitor closely POSSIBLE ALCOHOL WITHDRAWAL exhibiting signs of alcohol withdrawal AWSS high on Librium protocol PRN Ativan monitor closely seizure precautions electrolytes replaced -- as per above HYPERTENSION Amlodipine increased to 10 mg daily on usual Lisinopril Metoprolol on hold as patient on Clonidine add PO hydralazine monitor closely DVT Prophylaxis SCDs for now until BP controlled plan of care discussed with patient in detail and at length all questions answered she is understanding, agreeable, comfortable with the plan of care Admission and Anticipated Discharge Date Admission Date: January 22, 2022 Subjective ff up for vertebral osteomyelitis, etc seen resting in bed, comfortable sleeping but easily awakened back pain relieved by pain meds oriented, answers questions appropriately no chest pain, dyspnea, palpitations, dizziness appetite good as per patient no other symptoms Review of Systems Review of Systems: all noted and negative except for above Physical Exam Physical Exam: General- oriented x 2, not in distress, speaks in sentences with no effort or accessory muscle use Eyes- anicteric Neck- no JVD Lungs- clear breath sounds BL Heart- normal rate, regular rhythm; no murmurs Abdomen- normal bowel sounds, nondistended, soft, no tenderness Extremities- no pretibial edema, no calf tenderness Neuro- alert, oriented x 2; no gross focal neurologic deficits Skin- warm & dry Results & Data Results & Data ([facility]) Vital Signs (Past 12 Hours) Vital Signs Temp Pulse Pulse Resp BP Pulse Ox 01/28/22 16:00 36.5 C 107 H 35 H 158/98 H 97 01/28/22 11:00 36.2 C L 109 H 25 H 130/70 95 01/28/22 08:05 110 H all noted and reviewed including below
--- NOTE | 2022-01-28 19:30 | CT Scan Report ---
CT OF THE HEAD WITHOUT CONTRAST CLINICAL HISTORY: headache, r/o bleed COMPARISON STUDY: No previous studies for comparison. CT DOSE: 537.48 mGy.cm TECHNIQUE: Helical axial images of the head were obtained without IV contrast. Automated exposure con trol was utilized for the study. A dose lowering technique was utilized adhering to the principles o f ALARA. FINDINGS: No acute intracranial hemorrhage, midline shift or mass effect is present. The ventricular system is unremarkable. The basal cisterns are patent. No extra-axial collections are present. There are no findings to suggest acute dural sinus thrombosis or acute territorial infarct. No significant calvarial abnormalities are present. Visualized portions of the sinuses and mastoid air cells are evonne ar. IMPRESSION: No acute intracranial findings. ACT 112: Negative or not required by law. Electronically signed by: Rd Thomas M.D. 01/28/2022 7:29 PM
[2022-01-29] MEDS: cloNIDine HCL 0.1 MG TAB PO PRN (03:05)
[2022-01-29] MEDS: VANCOMYCIN HCL 1,500 MG in SODIUM CHLORIDE 0.9% 500 ML IV SCH ×3 (05:04→20:31)
[2022-01-29] MEDS: NSS + 20MEQ KCL 20 MEQ/1,000 ML BAG IV SCH (06:05)
[2022-01-29 07:10] LABS: Basophils # (auto) 0.05 K/uL (0-0.2); Basophils % (auto) 0.5 %; Eosinophils # (auto) 0.11 K/uL (0-0.5); Eosinophils % (auto) 1.1 %; Hematocrit (blood only) 33.8 % (37-47); Immature Granulocytes % (auto) 1.9 %; Lymphocytes # (auto) 2.43 K/uL (1.2-3.4); Lymphocytes % (auto) 23.5 %; Mean Corpuscular Hemoglobin 26.7 pg (25-34); Mean Corpuscular Hgb Conc 32.5 g/dL (32-36); Mean Platelet Volume 9.2 fL (7.4-10.4); Monocytes # (auto) 0.61 K/uL (0.11-0.59); Monocytes % (auto) 5.9 %; Neutrophils # (auto) 6.92 K/uL (1.4-6.5); Neutrophils % (auto) 67.1 %; Platelet Count 558 K/uL (130-400); RDW Coefficient of Variation 15.5 % (11.5-14.5); RDW Standard Deviation 46.7 fL (36.4-46.3); Red Blood Count 4.12 M/uL (4.2-5.4); White Blood Count 10.32 K/uL (4.8-10.8)
[2022-01-29 07:28] LABS: BUN Creatinine Ratio 21.4 (10-20); Calcium 8.8 mg/dl (8.5-10.1); Creatinine Clr Calc Pharmacy 138.9 ml/min; Est GFR (African American) 137.5 ml/min; Est GFR (Non-African American) 118.7 ml/min; Potassium 3.9 mmol/L (3.5-5.1)
[2022-01-29] MEDS: MoRPHine SULFATE 4 MG/ML 1 ML CARP\\VIAL IV PRN ×3 (08:13→16:47)
[2022-01-29] MEDS: cloNIDine HCL 0.1 MG TAB PO SCH ×4 (08:43→20:05)
[2022-01-29] MEDS: NICOTINE 21 MG/24 HR TDSY TD SCH (09:18)
[2022-01-29] MEDS: THIAMINE HCL 100 MG TAB PO SCH (10:34)
[2022-01-29] MEDS: amLODIPine BESYLATE 5 MG TAB PO SCH (10:34)
[2022-01-29] MEDS: OXYBUTYNIN CHLORIDE XL 5 MG TABCR PO SCH (10:34)
[2022-01-29] MEDS: PANTOprazole 40 MG TAB PO SCH (10:34)
[2022-01-29] MEDS: LIDOCAINE 5% 1 PATCH TD SCH (10:34)
[2022-01-29] MEDS: lisinopril 40 MG TAB PO SCH (10:35)
[2022-01-29] MEDS: FOLIC ACID 1 MG TAB PO SCH (10:35)
[2022-01-29] MEDS: LORazepam 0.5 MG TAB PO PRN ×2 (11:43→22:31)
--- NOTE | 2022-01-29 17:03 | Hospitalist Progress Note ---
Date of Service January 29, 2022 Assessment & Plan (1) Vertebral osteomyelitis: (2) Heroin abuse: Plan: VERTEBRAL OSTEOMYELITIS, DISCITIS IN THE SETTING OF HEROIN ABUSE blood culture 1: MRSA blood culture 2: No growth so far after 48 hours TT Echo: no signs of vegetation on Vanco ID consulted: recommend 6 weeks of IV Vanco in a SNF or drug rehab consulted Ortho as well-pending recommendations Pain Mgt consulted, agree with PRN Morphine, Percocet HEROIN ABUSE discussed with Psych on Clonidine q4h, and PRN PRN Ativan oriented x 3, overall symptoms improving continue Clonidine- taper from q4 to q6, then q12, PRN Ativan also on Morphine, Percocet PRN monitor closely POSSIBLE ALCOHOL WITHDRAWAL exhibiting signs of alcohol withdrawal AWSS high on Librium protocol PRN Ativan monitor closely seizure precautions electrolytes replaced -- as per above HYPERTENSION Amlodipine increased to 10 mg daily on usual Lisinopril Metoprolol on hold as patient on Clonidine add PO hydralazine monitor closely DVT Prophylaxis SCDs for now until BP controlled Disposition transition to SNF for completion of IV antibiotics plan of care discussed with patient in detail and at length all questions answered she is understanding, agreeable, comfortable with the plan of care Admission and Anticipated Discharge Date Admission Date: January 22, 2022 Subjective ff up for vertebral osteomyelitis, etc seen resting in bed, comfortable eyes closed but answering questions states she feels ok overall back pain well controlled no chest pain, dyspnea, palpitations, dizziness would like to take a shower no other symptoms Review of Systems Review of Systems: all noted and negative except for above Physical Exam Physical Exam: General- oriented x 3, not in distress, speaks in sentences with no effort or accessory muscle use Eyes- anicteric Neck- no JVD Lungs- clear BS bilaterally, no rales/wheezes Heart- normal rate, regular rhythm; no murmurs Abdomen- normal bowel sounds, nondistended, soft, nontender Extremities- no pretibial edema, no calf tenderness Neuro- alert, oriented x 3; no gross focal neurologic deficits Skin- warm & dry Results & Data Results & Data ([facility]) Vital Signs (Past 12 Hours) Vital Signs Temp Pulse Pulse Resp BP Pulse Ox 01/29/22 15:31 106 H 01/29/22 11:16 36.7 C 109 H 17 142/98 H 98 01/29/22 08:00 81 01/29/22 07:00 36.9 C 102 H 20 156/85 H 96 all noted and reviewed including below
[2022-01-29] MEDS: LORazepam 2 MG/1 ML VIAL IV PRN ×4 (17:42→23:22)
[2022-01-29] MEDS ORDERED: OLANZapine 10 MG/2.1 ML SDV IM ONE (17:45)
[2022-01-29] MEDS: oxyCODONE/ACETAMINOPHEN 5mg/325mg TAB PO PRN (20:54)
[2022-01-30] MEDS: oxyCODONE/ACETAMINOPHEN 5mg/325mg TAB PO PRN ×5 (01:36→19:07)
[2022-01-30] MEDS: cloNIDine HCL 0.1 MG TAB PO SCH ×4 (02:10→20:09)
[2022-01-30] MEDS ORDERED: LIDOCAINE 5% 1 PATCH TD STA (02:14)
[2022-01-30] MEDS ORDERED: ACETAMINOPHEN 1000 MG/100 ML IV IV ONE (02:16)
[2022-01-30] MEDS ORDERED: VANCOMYCIN TROUGH ONE (04:30)
[2022-01-30] MEDS: VANCOMYCIN HCL 1,500 MG in SODIUM CHLORIDE 0.9% 500 ML IV SCH ×3 (05:07→20:08)
[2022-01-30 05:24] LABS: Calcium 8.9 mg/dl (8.5-10.1); Creatinine Clr Calc Pharmacy 111.4 ml/min; Est GFR (African American) 128.2 ml/min; Est GFR (Non-African American) 110.6 ml/min; Potassium 3.7 mmol/L (3.5-5.1)
[2022-01-30] MEDS: NICOTINE 21 MG/24 HR TDSY TD SCH (07:46)
[2022-01-30] MEDS: amLODIPine BESYLATE 5 MG TAB PO SCH (07:47)
[2022-01-30] MEDS: FOLIC ACID 1 MG TAB PO SCH (07:47)
[2022-01-30] MEDS: PANTOprazole 40 MG TAB PO SCH (07:47)
[2022-01-30] MEDS: LIDOCAINE 5% 1 PATCH TD SCH (07:48)
[2022-01-30] MEDS: THIAMINE HCL 100 MG TAB PO SCH (07:48)
[2022-01-30] MEDS: OXYBUTYNIN CHLORIDE XL 5 MG TABCR PO SCH (07:48)
[2022-01-30] MEDS: lisinopril 40 MG TAB PO SCH (07:48)
--- NOTE | 2022-01-30 07:57 | Pharmacy Report ---
Pharmacy Vanc AUC Short Note - Date of Service January 30, 2022 - Assessment & Plan Assessment * 51 year old F receiving VANCOMYCIN IV for treatment of MRSA bacteremia, lumbar osteomyelitis/discitis in the setting of IV substance abuse. * Pertinent microbiologic data includes: 01/22 BLCXs = MRSA, no growth to date in repeat BLCXs from 01/24 * ID has recommended 6 wks IV abx therapy from date of 1st negative BLCXs Plan Vancomycin * AUC/SEAMUS is the preferred PK/PD target for vancomycin * AUC guided dosing is effective and associated with decreased risk of nephrotoxicity compared to traditional trough targets * Trough came back at ~19 mcg/ml - this is predicated to achieve a target AUC/SEAMUS of 400-600 mg/L.hr and may be associated with a 11 % risk of nephrotoxicity * Continue dose vancomycin 1500 mg iv q 8 hr * Plan to recheck level in next 3-4 days or sooner if renal function changes Pharmacy will continue to follow and will adjust dose/frequency as necessary. Thank you.
[2022-01-30] MEDS: LORazepam 0.5 MG TAB PO PRN (09:32)
[2022-01-30] MEDS: LORazepam 2 MG/1 ML VIAL IV PRN ×3 (15:04→21:24)
[2022-01-30] MEDS ORDERED: MoRPHine SULFATE 4 MG/ML 1 ML CARP\\VIAL IV ONE (16:17)
--- NOTE | 2022-01-30 17:50 | Hospitalist Progress Note ---
Date of Service January 30, 2022 Assessment & Plan (1) Vertebral osteomyelitis: (2) Heroin abuse: Plan: Vertebral Osteomyelitis, Discitis H/O Heroin abuse Blood culture: MRSA Repeat blood culture: No growth Echo: no evidence of vegetation Counseled to Quit IV drug use Appreciate ID input Continue IV Vanco>>Transition to Daptomycin Needs 6 weeks of IV Antibiotics Patient refused Rehab Placement Consulted Ortho Heroin Abuse Appreciate Psych Input on Clonidine, Ativan PRN continue Clonidine- taper from q4 to q6, then q12, PRN Ativan monitor closely Possible Alcohol Withdrawal Received Librium PRN Ativan monitor seizure precautions Hypertension Amlodipine increased to 10 mg daily Continue Lisinopril Metoprolol on hold as patient on Clonidine Monitor DVT Prophylaxis SCDs for now Disposition Home Refused Rehab Admission and Anticipated Discharge Date Admission Date: January 22, 2022 Subjective Patient is seen and examined at bedside States having back pain, feels tired Not interested in rehab placement Discussed with ID today Offers no other complaints Review of Systems Review of Systems: All systems reviewed & are unremarkable except as noted in Subjective Physical Exam 2 Physical Exam: Physical Exam: Vitals signs as noted above General Appearance:Moderately built and nourished, no apparent distress Head: normocephalic, Atraumatic Eyes: normal inspection, EOMI Neck: supple, Trachea midline Respiratory/Chest: Normal breath sounds, CTA, No accessory muscle use Cardiovascular: S1, S2, No murmur Abdomen/GI:Soft, Non tender, Bowel sounds present Extremities/Musculoskeletal:normal inspection, no edema Neurologic/Psych:AAOX3, grossly no focal neurological deficits Skin: normal color, warm Results & Data Results & Data ([facility]) Vital Signs (Past 12 Hours) Vital Signs Pulse 01/30/22 14:50 104 H 01/30/22 08:00 65 Laboratory Results BMP 01/30/22 04:47 Sodium 137 Potassium 3.7 Chloride 106 Carbon Dioxide 25 BUN 13 Creatinine 0.52 L Glucose 122 H Calcium 8.9
--- NOTE | 2022-01-30 22:14 | Communication Note ---
Date of Service: January 30, 2022 Made aware by RN of patient request to leave hospital to AGAINST MEDICAL ADVICE. Patient oriented. Patient not willing to wait for morning provider. Patient intent on departing hospital AGAINST MEDICAL ADVICE despite explanations provided and citation of risks/possible consequences arising from decision to leave AMA which include as an extreme end result. Patient signed AMA form.
[2022-01-30] MEDS ORDERED: NICOTINE POLACRILEX 2 MG GUM MT PRN (22:22)
--- NOTE | 2022-01-31 07:34 | Discharge Summary ---
Date of Service January 31, 2022 Admission HPI Per Admitting Provider This is a 51 y/o female with a hx of HTN, GERD, heroin use, and chronic back pain who presented to the ED early this morning with acute worsening of chronic back pain. History from the patient when seen was somewhat vague so her outpatient records and ED notes were extensively reviewed to help provide additional information. Pt reports ongoing issues with chronic back pain that has intermittent flared previously but current episode is more severe - she does not recall an inciting event and is unsure when specifically the pain got worse. She reports that she has been taking ibuprofen 800 mg and using heroin for the pain, which previously seemed to help but more recently has not alleviated her symptoms. She reports that currently she is using 25-30 bags of heroin per day with last use just before arrival in the ED. She denies loss of control of bowels or bladder. Pain may radiate down her legs but she denies loss of function. Admission Exam Per Admitting Provider Physical Exam Constitutional: + disheveled agitated, writhing around in the bed, found lying in the bed without clothing on Eyes: + anicteric sclerae Neck: trachea midline Respiratory: no respiratory distress Auscultation: lungs clear to auscultation bilaterally; no rales, no rhonchi and no wheezes Cardiovascular: Rate/Rhythm: regular rhythm and + tachycardic Gastrointestinal (Abdomen): Inspection/Auscultation: normal bowel sounds; abdomen not distended Percussion/Palpation: abdomen soft Musculoskeletal: no spinous process tenderness, mild lumbar paraspinal tenderness Skin: injection harding noted LUE, no jaundice Neurologic: moves all extremities; no focal motor deficits negative Babinski, Achilles reflex 2+ and equal Manager Massage Department strength equal Principal Diagnosis Vertebral Osteomyelitis, Discitis MRSA bacteremia Urine abuse Suspected alcohol withdrawal Hypertension Discharge Data Allergies Allergy/AdvReac Type Severity Reaction Status Date / Time No Known Allergies Allergy Verified 01/31/22 09:38 Consultations 01/22/22 12:27 ED Decision to Admit Stat 01/22/22 12:55 Consult Infectious Diseases Routine 01/22/22 16:27 Consult Psychiatry Routine 01/23/22 08:17 Consult Pain Management Routine 01/25/22 23:31 Consult Gas Engine Performance Engineer Routine 01/30/22 13:18 Consult Orthopedic Surgery Routine Ordered Studies 01/22/22 04:13 MR lumbar spine wo/w con Stat 01/28/22 18:57 CT head/brain wo con Urgent Hospital Course (1) Vertebral osteomyelitis: (2) Heroin abuse: Vertebral Osteomyelitis, Discitis H/O Heroin abuse Blood culture: MRSA Repeat blood culture: No growth Echo: no evidence of vegetation Counseled to Quit IV drug use Appreciate ID input Continue IV Vanco>>Transition to Daptomycin Needs 6 weeks of IV Antibiotics Patient refused Rehab Placement Consulted Ortho Heroin Abuse Appreciate Psych Input on Clonidine, Ativan PRN continue Clonidine- taper from q4 to q6, then q12, PRN Ativan monitor closely Possible Alcohol Withdrawal Received Librium PRN Ativan monitor seizure precautions Hypertension Amlodipine increased to 10 mg daily Continue Lisinopril Metoprolol on hold as patient on Clonidine Monitor DVT Prophylaxis SCDs for now Disposition Home Refused Rehab Patient signed out AGAINST MEDICAL ADVICE despite explanations provided and citation of risks/possible consequences arising from decision to leave AMA which include as an extreme end result by Night Hospitalist. Total Time Total Time Spent Total Time Spent (In Minutes): 40 minutes Discharge Plan Discharge Items Patient Disposition: Against Medical Advice Reason For Visit: BACK PAIN, EARLY OSTEOMYELITITS/DISCITIS Activity: Per Instructions section Non-emergency contact: Primary Care Provider Follow-up/Referrals: Vidal Amador MD [Primary Care Provider] - Pending Studies at Discharge: No Stand-Alone Forms: [facility] [employer], Smoking Cessation Medications and DC Order Prescriptions: No Action oxybutynin chloride 10 mg tablet extended release 24 hr 10 mg PO HS RF: 0 omeprazole 20 mg capsule,delayed release(DR/EC) 20 mg PO HS RF: 0 hydrochlorothiazide 25 mg tablet 25 mg PO HS RF: 0 metoprolol succinate 25 mg tablet extended release 24 hr 25 mg PO HS RF: 0 lisinopril 40 mg tablet 40 mg PO HS RF: 0 Discharge Orders: Left Against Medical Advice (Routine); Ordered 01/30/22 Ordered By: Luis Carlos Shanks Admission Data Admit Date/Time: 01/22/22 12:55 Attending Provider: Roberto Lomeli Admit Provider: Rehana Stephenson Primary Care Provider: Vidal Amador Other Providers: Rehana Stephenson ; Amilcar Vazquez ; aVlente Tubbs ; Be Cronin I. ; Richard Davey II ; Phuong Curtis ; Virgilio Kay ; Fercho Arias ; Jeanne Farrell ; Argelia Guerin ; Tiara Ovalle ; Krystal Dugan ; Sheldon Rodriguez ; Denys Reno
[2022-01-31] MEDS ORDERED: DAPTOmycin 600 MG in SYRINGE 0 ML IV SCH (08:00)
--- NOTE | 2022-02-02 10:23 | Orthopedic Consultation ---
Date of Consultation February 02, 2022 Assessment & Plan (1) Acute osteomyelitis of lumbar spine: Patient left the hospital AGAINST MEDICAL ADVICE prior to my ability to examine and evaluate patient History of Present Illness Reason for Consultation: Lumbar spinal stenosis with vertebral osteomyelitis Attending Physician: Roberto Lomeli MD Allergies Allergy/AdvReac Type Severity Reaction Status Date / Time No Known Allergies Allergy Verified 02/02/22 08:48 Home Medications Medication Instructions Recorded Confirmed Type hydrochlorothiazide 25 mg tablet 25 mg PO HS 01/22/22 02/02/22 History metoprolol succinate 25 mg 25 mg PO HS 01/22/22 02/02/22 History tablet,extended release 24 hr omeprazole 20 mg capsule,delayed 20 mg PO HS 01/22/22 02/02/22 History release oxybutynin chloride 10 mg 10 mg PO HS 01/22/22 02/02/22 History tablet,extended release 24 hr clonidine HCl 0.1 mg tablet 0.1 mg PO TID 02/01/22 02/02/22 History Patient History Medical History Chronic low back pain GERD (gastroesophageal reflux disease) Heroin abuse Hypertension Surgical History History of appendectomy History of cholecystectomy History of tubal ligation Hx of augmentation mammoplasty Social History (Updated 02/01/22 @ 15:32 by Trudy Berry RN) Smoking Status: Current every day smoker Hx Alcohol Use: Yes Alcohol type: beer, wine and hard liquor Hx Substance Use: Yes Non-Prescribed Medications: Heroin Last Used Substance: Just Prior to Arrival Substance Use Type Other:: taking lorazepam Preferred Language: Icelandic Communication Ability: Effective River Tester Required: No Beliefs That Will Affect Care: None marital status: / Current Living Situation: Alone Feels Safe at Home: Yes Safety Concerns: Feels Safe At This Time Assistive Devices: None
== END 2022-01-30 23:32 | disposition left against medical advice (07) | DRG 539 ==
LOC: ED 03:35 → 2E 12:55 → SUATTDRO 12:55 → 2E 15:07 → 1E 01-25 22:13 → 2S 01-28 19:08
DX: M46.40 Discitis, unspecified, site unspecified; F12.10 Cannabis abuse, uncomplicated; D64.9 Anemia, unspecified; M46.26 Osteomyelitis of vertebra, lumbar region; F17.200 Nicotine dependence, unspecified, uncomplicated; I10 Essential (primary) hypertension; K21.9 Gastro-esophageal reflux disease without esophagitis; E87.6 Hypokalemia; F17.210 Nicotine dependence, cigarettes, uncomplicated; G89.29 Other chronic pain; G92.8 Other toxic encephalopathy; R78.81 Bacteremia; F10.239 Alcohol dependence with withdrawal, unspecified; F19.10 Other psychoactive substance abuse, uncomplicated; R44.3 Hallucinations, unspecified; F11.23 Opioid dependence with withdrawal; B95.62 Methicillin resistant Staphylococcus aureus infection as the cause of diseases classified elsewhere

== ENCOUNTER 2022-02-07 16:41 | Inpatient (IN) ==
--- NOTE | 2022-02-07 19:03 | Emergency Department Note ---
History of Present Illness General Chief Complaint: Flank Pain Stated Complaint: ANTIBIOTICS INTERFERRING WITH KIDNEY Time Seen by Provider: 02/07/22 18:45 History of Present Illness Provider Complaint: + abnormal lab Returns today for: + called because of abnormal lab/test Symptoms since prior visit: + no new symptoms Context: + called for abnormal lab result Associated symptoms: + none HPI narrative: 51-year-old female with history of osteomyelitis and IV drug abuse presents emergency department for increased creatinine. Patient reports that Dr. Lance Coleman hospitalist/family practice told her to come into the emergency department due to increasing worsening kidney function most likely from her IV antibiotics. Patient reports that she is willing to stay in the hospital this time. She reports she last used drugs this morning. No fevers. Home Medications Medication Instructions Recorded Confirmed Type hydrochlorothiazide 25 mg tablet 25 mg PO HS 01/22/22 02/07/22 History metoprolol succinate 25 mg 25 mg PO HS 01/22/22 02/07/22 History tablet,extended release 24 hr omeprazole 20 mg capsule,delayed 20 mg PO HS 01/22/22 02/07/22 History release oxybutynin chloride 10 mg 10 mg PO HS 01/22/22 02/07/22 History tablet,extended release 24 hr clonidine HCl 0.1 mg tablet 0.1 mg PO BID 02/01/22 02/07/22 History acetaminophen-pamabrom 500 mg-25 1 tab PO QID PRN 02/07/22 02/07/22 History mg tablet (Midol) trazodone 50 mg tablet 50 mg PO HS PRN 02/07/22 02/07/22 History Allergies Allergy/AdvReac Type Severity Reaction Status Date / Time No Known Allergies Allergy Verified 02/07/22 20:19 Past Med/Surg History Medical History Acute osteomyelitis of lumbar spine Alcohol abuse Benzodiazepine abuse Cannabis abuse Chronic low back pain Cocaine abuse GERD (gastroesophageal reflux disease) Heroin abuse Hypertension Insomnia MRSA bacteremia Vertebral osteomyelitis Surgical History History of appendectomy History of cholecystectomy History of tubal ligation Hx of augmentation mammoplasty Social History Smoking Status: Current every day smoker Hx Alcohol Use: Yes Alcohol type: beer, wine and hard liquor Hx Substance Use: Yes Non-Prescribed Medications: Heroin Last Used Substance: Just Prior to Arrival Substance Use Type Other:: taking lorazepam Preferred Language: Croatian Communication Ability: Effective Roving Marker Required: No Beliefs That Will Affect Care: None marital status: / Current Living Situation: Alone Feels Safe at Home: Yes Assistive Devices: None Review of Systems A total of 10 systems reviewed and were otherwise negative Physical Exam Vital Signs: Vital Signs - 24 hr 02/07/22 16:42 02/07/22 19:13 Temperature 37.1 C Temperature Source Temporal Artery Sc an Pulse Rate 99 H Pulse Rate [Right Finger] 69 Respiratory Rate 22 16 Blood Pressure 148/84 H Blood Pressure [Ri ght Arm] 144/89 H Blood Pressure Gaby n 105 Blood Pressure Gaby n [Right Arm] 107 Pulse Oximetry 96 95 Oxygen Delivery Me thod Room Air Sepsis Recent Feve r Within 48 Hours No Sepsis New/Unexpla ined Change in Men thomas Status N/A Sepsis Action Take n by Nursing No Action Required Physical Exam: Physical Exam GENERAL: She is oriented to person, place, and time. She appears well-developed and well-nourished. She does not appear distressed. HENT: Exam performed. -Head: Normocephalic and atraumatic. -Right Ear: External ear normal. No mastoid tenderness. -Left Ear: External ear normal. No mastoid tenderness. -Mouth/Throat: The oropharynx is clear and moist. No trismus in the jaw. No dental abscesses or uvula swelling. No oropharyngeal exudate or tonsillar abscesses. EYES: Conjunctivae and EOM are normal. Pupils are equal, round, and reactive to light. Right eye exhibits no discharge. Left eye exhibits no discharge. No scleral icterus. NECK: Normal range of motion. Neck supple. No JVD present. No spinous process tenderness present. No carotid bruit present. No rigidity. No tracheal deviation and normal range of motion present. No Brudzinski's sign and no Kernig's sign noted. CV: Normal rate, regular rhythm, normal heart sounds and intact distal pulses. There is no peripheral edema. Palpable radial pulses bue. PULM/CHEST: Effort normal and breath sounds normal. No respiratory distress. No stridor. She has no wheezes. She has no rales. -Chest Wall: She exhibits no tenderness. ABD: The abdomen is soft. Bowel sounds are normal. She has no distension. No mass is present. There is no tenderness. There is no rebound, no guarding, no Grace's sign and no tenderness at McBurney's point. Rovsig negative MUSC/SKEL: Normal range of motion. There is no peripheral edema, tenderness or deformity. LYMPH: No cervical adenopathy. NEURO: She is alert and oriented to person, place, and time. She has normal strength. No cranial nerve deficit or sensory deficit. Coordination and gait normal. GCS eye subscore is 4. GCS verbal subscore is 5. GCS motor subscore is 6. Cerebellar tests wnl. SKIN: Skin is warm and dry. She is not diaphoretic. Track harding over the bilateral upper extremities. PSYCH: She has a normal mood and affect. Behavior is normal. Judgment and thought content normal. Course Course 1844: The patient was evaluated in room C7. A complete history and physical exam was performed Cardiac monitoring: An order was placed for continuous cardiac monitoring. The monitor shows a rate of 100 with sinus rhythm EMR reviewed. Patient was admitted to the hospital from January 22 to January 31, 2022.Patient was admitted for vertebral osteomyelitis and discitis. Patient was started on IV vancomycin and transition to daptomycin. Patient refused rehab placement and left AMA. Labs from yesterday showed the patient had a creatinine of 3.6. [employer] general manager was able to obtain records from [facility] and it stated that Dr. Hogan wanted the patient admitted due to her worsening kidney function. The patient is currently on dapt[facility] through the [facility] and states her last dose was yesterday. Patient will be admitted to the [facility]ist team. 2108: Vital signs stable. Labs showed normal white blood cell count and mildly improved creatinine of 2.84. Ultrasound of kidneys within normal limits. Discussed with Dr. Savage who will admit the patient Medical Decision Making Laboratory Data Result diagrams: 02/07/22 18:51 02/07/22 18:51 Lab Results 02/07/22 02/07/22 02/07/22 Range/Units 18:51 18:51 19:11 WBC 8.65 (4.8-10.8) K/uL RBC 3.75 L (4.2-5.4) M/uL Hgb 10.0 L (12.0-16.0) g/dL Hct 30.6 L (37-47) % MCV 81.6 (80-100) fL MCH 26.7 (25-34) pg MCHC 32.7 (32-36) g/dL RDW Std Deviation 46.0 (36.4-46.3) fL RDW Coeff of Everette 15.7 H (11.5-14.5) % Plt Count 524 H (130-400) K/uL MPV 9.2 (7.4-10.4) fL Sodium 134 L (136-145) mmol/L Potassium 3.9 (3.5-5.1) mmol/L Chloride 98 (98-107) mmol/L Carbon Dioxide 26 (21-32) mmol/L Anion Gap 10 (3-11) BUN 42 H (6-23) mg/dl Creatinine 2.84 H D (0.6-1.2) mg/dl Est Cr Clr Drug Dosing 19.6 ml/min Est GFR ( Amer) 21.4 ml/min Est GFR (Non-Af Amer) 18.5 ml/min BUN/Creatinine Ratio 14.8 (10-20) Glucose 113 H (70-99(Fasting)) mg/dl Calcium 9.3 (8.5-10.1) mg/dl Urine Color Urine Appearance (Clear) Urine pH (4.5-7.5) Ur Specific [employer] (1.000-1.030) Urine Protein (Negative) Urine Glucose (UA) (Negative) Urine Ketones (Negative) Urine Blood (Negative) Urine Nitrite (Negative) Urine Bilirubin (Negative) Urine Urobilinogen (Negative) Ur Leukocyte Esterase (Negative) Urine WBC (Auto) (0-5) /hpf Urine RBC (Auto) (0-4) /hpf U Hyaline Cast (Auto) (0-5) /lpf U Epithel Cells (Auto) (0-5) /lpf Urine Bacteria (Auto) (Negative) SARS-CoV-2, RNA, NAAT NEGATIVE (NEGATIVE) 02/07/22 Range/Units 19:57 WBC (4.8-10.8) K/uL RBC (4.2-5.4) M/uL Hgb (12.0-16.0) g/dL Hct (37-47) % MCV (80-100) fL MCH (25-34) pg MCHC (32-36) g/dL RDW Std Deviation (36.4-46.3) fL RDW Coeff of Everette (11.5-14.5) % Plt Count (130-400) K/uL MPV (7.4-10.4) fL Sodium (136-145) mmol/L Potassium (3.5-5.1) mmol/L Chloride (98-107) mmol/L Carbon Dioxide (21-32) mmol/L Anion Gap (3-11) BUN (6-23) mg/dl Creatinine (0.6-1.2) mg/dl Est Cr Clr Drug Dosing ml/min Est GFR ( Amer) ml/min Est GFR (Non-Af Amer) ml/min BUN/Creatinine Ratio (10-20) Glucose (70-99(Fasting)) mg/dl Calcium (8.5-10.1) mg/dl Urine Color Yellow Urine Appearance Clear (Clear) Urine pH 5.0 (4.5-7.5) Ur Specific [employer] 1.013 (1.000-1.030) Urine Protein Trace H (Negative) Urine Glucose (UA) Negative (Negative) Urine Ketones Negative (Negative) Urine Blood Trace H (Negative) Urine Nitrite Negative (Negative) Urine Bilirubin Negative (Negative) Urine Urobilinogen Negative (Negative) Ur Leukocyte Esterase Trace H (Negative) Urine WBC (Auto) 5-10 H (0-5) /hpf Urine RBC (Auto) 0-4 (0-4) /hpf U Hyaline Cast (Auto) 5-10 H (0-5) /lpf U Epithel Cells (Auto) >30 H (0-5) /lpf Urine Bacteria (Auto) Negative (Negative) SARS-CoV-2, RNA, NAAT (NEGATIVE) Imaging Data Radiologist's Impression: Renal Ultrasound 02/07/22 18:21 US renal/blad retro comp CLINICAL HISTORY: glen TECHNIQUE: Multiple sonographic real-time images of the kidneys and bladder were obtained. COMPARISON: None available at the time of this dictation. FINDINGS: The right kidney measures 12.4 cm in length, and the left kidney measures 11.9 cm in length. The right kidney is normal in size, contour, cortical thickness, and echogenicity. No hydronephrosis is identified. No renal lesion is identified. No perinephric fluid collection is seen. The left kidney is normal in size, contour, cortical thickness and echogenicity. No hydronephrosis is identified. No renal lesion is identified. No perinephric fluid collection is seen. The bladder is partially distended. No large intraluminal mass is seen. IMPRESSION: Unremarkable examination and in particular no evidence of hydronephrosis. ACT 112: Negative or not required by law. Electronically signed by: Carlin Kirkpatrick M.D. 02/07/2022 8:09 PM [facility] Narrative 1845: The patient was evaluated in room C7. A complete history and physical exam was performed Cardiac monitoring: An order was placed for continuous cardiac monitoring. The monitor shows a rate of 100 with sinus rhythm EMR reviewed. Patient was admitted to the hospital from January 22 to January 31, 2022.Patient was admitted for vertebral osteomyelitis and discitis. Patient was started on IV vancomycin and transition to daptomycin. Patient refused rehab placement and left AMA. Labs from yesterday showed the patient had a creatinine of 3.6. [employer] general manager was able to obtain [facility] and it stated that Dr. Hogan wanted the patient admitted due to her worsening kidney function. The patient is currently on [facility]apt[facility] through the [facility] and states her last dose was yesterday. Patient will be admitted to the [facility] hospitalist team. 2108: Vital signs stable. Labs showed normal white blood cell count and mildly improved creatinine of 2.84. Ultrasound of kidneys within normal limits. Discussed with Dr. Savage who will admit the patient Impression & Plan GLEN (acute kidney injury) Discharge Plan Visit Data Chief Complaint: Flank Pain Stated Complaint: ANTIBIOTICS INTERFERRING WITH KIDNEY ED Provider: Clinton Wu Discharge Problem: GLEN (acute kidney injury) Patient Disposition: Admitted As Inpatient Forms Stand Alone Forms: [employer] [place] [facility] [employer] Prescriptions Prescriptions: No Action clonidine HCl 0.1 mg Tablet 0.1 mg PO BID RF: 0 trazodone 50 mg tablet 50 mg PO HS PRN (Reason: Sleep) RF: 0 Midol 500-25 mg Tablet 1 tab PO QID PRN (Reason: Cramps) RF: 0 oxybutynin chloride 10 mg tablet extended release 24 hr 10 mg PO HS RF: 0 omeprazole 20 mg capsule,delayed release(DR/EC) 20 mg PO HS RF: 0 hydrochlorothiazide 25 mg tablet 25 mg PO HS RF: 0 metoprolol succinate 25 mg tablet extended release 24 hr 25 mg PO HS RF: 0 Referrals Referrals: Vidal Amador MD [Primary Care Provider] -
[2022-02-07 19:20] LABS: BUN Creatinine Ratio 14.8 (10-20); Calcium 9.3 mg/dl (8.5-10.1); Creatinine Clr Calc Pharmacy 19.6 ml/min; Est GFR (African American) 21.4 ml/min; Est GFR (Non-African American) 18.5 ml/min; Potassium 3.9 mmol/L (3.5-5.1)
[2022-02-07 19:28] LABS: Hematocrit (blood only) 30.6 % (37-47); Mean Corpuscular Hemoglobin 26.7 pg (25-34); Mean Corpuscular Hgb Conc 32.7 g/dL (32-36); Mean Corpuscular Volume 81.6 fL (80-100); Mean Platelet Volume 9.2 fL (7.4-10.4); Platelet Count 524 K/uL (130-400); RDW Coefficient of Variation 15.7 % (11.5-14.5); Red Blood Count 3.75 M/uL (4.2-5.4); White Blood Count 8.65 K/uL (4.8-10.8)
--- NOTE | 2022-02-07 20:11 | Ultrasound Report ---
US renal/blad retro comp CLINICAL HISTORY: ellen TECHNIQUE: Multiple sonographic real-time images of the kidneys and bladder were obtained. COMPARISON: None available at the time of this dictation. FINDINGS: The right kidney measures 12.4 cm in length, and the left kidney measures 11.9 cm in length. The right kidney is normal in size, contour, cortical thickness, and echogenicity. No hydronephrosis is identified. No renal lesion is identified. No perinephric fluid collection is seen. The left kidney is normal in size, contour, cortical thickness and echogenicity. No hydronephrosis i s identified. No renal lesion is identified. No perinephric fluid collection is seen. The bladder is partially distended. No large intraluminal mass is seen. IMPRESSION: Unremarkable examination and in particular no evidence of hydronephrosis. ACT 112: Negative or not required by law. Electronically signed by: Carlin Kirkpatrick M.D. 02/07/2022 8:09 PM
[2022-02-07 20:26] LABS: Appearance Urine Clear (Clear); Bacteria Urine Automated Negative (Negative); Bilirubin Urine Negative (Negative); Blood Urine Trace (Negative); Color Urine Yellow; Epithelial Cell Urine Auto >30 /lpf (0-5); Glucose Urine UA Negative (Negative); Ketones Urine Negative (Negative); Leukocyte Esterase Urine Trace (Negative); Nitrite Urine Negative (Negative); Protein Urine Trace (Negative); RBC Urine Automated 0-4 /hpf (0-4); Specific Gravity Urine 1.013 (1.000-1.030); Urobilinogen Urine Negative (Negative)
[2022-02-07] MEDS ORDERED: ONDANSETRON INJ 2 MG/ML 2 ML VIAL IV PRN (21:43)
[2022-02-07] MEDS ORDERED: POLYETHYLENE (MIRALAX) 17 GM PACK PO PRN (21:43)
[2022-02-07] MEDS ORDERED: NITROGLYCERIN SL 0.4 MG/TAB TAB SL PRN (21:43)
[2022-02-07] MEDS ORDERED: cloNIDine HCL 0.1 MG TAB PO PRN (21:43)
[2022-02-07] MEDS ORDERED: DIPHENOXYLATE/ATROPINE 2.5/0.025MG TAB PO PRN (21:43)
[2022-02-07] MEDS: PANTOprazole 40 MG TAB PO SCH (23:10)
[2022-02-07] MEDS: SODIUM CHLORIDE 0.9% 1000ML 1,000 ML IV SCH (23:10)
[2022-02-07] MEDS: OXYBUTYNIN CHLORIDE XL 5 MG TABCR PO SCH (23:10)
[2022-02-07] MEDS: METOPROLOL SUCC 25MG EXT REL TAB PO SCH (23:11)
[2022-02-07] MEDS: HEPARIN SOD 5,000 UNIT/0.5 ML VIAL SQ SCH (23:11)
--- NOTE | 2022-02-08 00:38 | History and Physical Report ---
DATE OF ADMISSION: 02/07/2022. CHIEF COMPLAINT: GLEN, history of heroin abuse and MRSA bacteremia, vertebral osteomyelitis. HISTORY OF PRESENT ILLNESS: This is a 51-year-old female with past medical history significant for hypertension, GERD, heroin use, and chronic back pain, who was recently in the hospital, and found to have vertebral osteomyelitis and MRSA bacteremia. In the hospital, she was given IV vancomycin, plan for 6 weeks of IV antibiotics, but the patient signed out AMA and she came the next day to the ER and at that time she was agreeable for IV antibiotics and she was transitioned to daptomycin on 01/31/2022 and was getting through [facility] because of her history of heroin abuse and she was following with the PCP and outpatient labs showed progressively worsening kidney function. On 01/30/2022, her creatinine was 1.4, it was 3.4 on 02/04/2022 and 3.6 on 02/06/2022, and the PCP advised to come to the ER today and today in the ER it is 2.8, and when her creatinine was 1.4, the patient was instructed to stop lisinopril at that time. As per the current med list , she is on hydrochlorothiazide too. The patient during the last hospitalization, she was placed on clonidine and Ativan p.r.n. for heroin withdrawal. There is a question of alcoholism and was also on Librium p.r.n. The patient says after going home she was not drinking alcohol, but she was doing heroin 2 times a day, snuffing, and sometimes eating it, the last dose was today morning. She thinks that she may be getting withdrawal soon. She says she used to do IV drug abuse in the past, but currently she is snuffing. Says she quit drugs for 7 years , but again restarted 2 years ago after her , and now she thinks she wants to quit it again. Has some headache, some dizziness, no blurred visions, no earache, no runny nose, no sore throat, no cough. Feeling hot and cold. Appetite is okay. Eating and drinking okay. No chest pain. She thinks she is always short of breath for the last 2 years with exertion. Currently, no nausea, no abdominal pain. Somewhat constipated. No bowel or bladder incontinence. No blood in the stool or black stools. No swelling in the legs. She is having severe back pains on and off, mostly in the mornings. Ambulating okay. ALLERGIES: No known drug allergies. PAST MEDICAL HISTORY: As mentioned above. PAST SURGICAL HISTORY: Carpal tunnel surgery, right side; ; cystoscopy; laparoscopic cholecystectomy; ligation of oviducts; bilateral reduction of the breasts; appendectomy; tonsillectomy and adenoidectomy. MEDICATIONS: she is on acetaminophen/parabrom 1 tablet q.i.d. p.r.n., clonidine looks like tapering dose 0.1 mg p.o. b.i.d., hydrochlorothiazide 25 mg p.o. at bedtime, metoprolol 25 mg p.o. at bedtime, omeprazole 20 mg p.o. at bedtime, oxybutynin chloride 10 mg p.o. at bedtime, trazodone 50 mg p.o. at bedtime p.r.n. FAMILY HISTORY: No family history on file. SOCIAL HISTORY: . Smokes half pack a day. Says currently not using alcohol. Doing heroin 2 times a day. REVIEW OF SYSTEMS: As per HPI. Rest of the review of systems is negative. PHYSICAL EXAMINATION: GENERAL: The patient is of moderate build, not in acute distress. VITAL SIGNS: Temperature 37.1, pulse 69, respiratory rate 16, blood pressure 144/89, oxygen 95% on room air. HEENT: Pupils equal, round and reactive to light. Oral mucosa moist. NECK: No JVD. No neck masses. CARDIOVASCULAR: S1 and S2 heard. Regular rate and rhythm. No murmur, no gallop. RESPIRATORY SYSTEM: Normal AP diameter. No accessory muscle use. No wheezing, no crackles. ABDOMEN: Soft, bowel sounds present, nontender, no distention. CENTRAL NERVOUS SYSTEM: Cranial nerves II-XII grossly intact, nonfocal. EXTREMITIES: No edema, no erythema. LABORATORY DATA: WBC 8.6, hemoglobin 10, hematocrit 30.6, platelets 524. Sodium 134, potassium 3.9, chloride 98, bicarbonate 26, BUN 42, creatinine 2.8, serum glucose 113, calcium 9.3. Urinalysis, trace leukocyte esterase. SARS-CoV-2 rapid test negative. IMAGING DATA: Renal ultrasound unremarkable. ASSESSMENT AND PLAN: This is a 51-year-old female who was recently in the hospital for vertebral osteomyelitis, MRSA bacteremia, and heroin withdrawal, comes back because of acute kidney injury. 1. Acute kidney injury: Creatinine of 2.8 today , yesterday was 3.6. On 01/31/2022, it was 1.4, on last admission it was 0.4-0.5. Last admission was in the first week of January. Could be from the vancomycin she received in the hospital, could be from the daptomycin. She was advised to stop lisinopril when she was in the ER on 01/31/2022. Seems to be currently still on hydrochlorothiazide, will hold the hydrochlorothiazide. Will place on IV normal saline 100 mL per hour. Renal ultrasound was okay. Will consult ID for the antibiotic recommendations. As per pharmacy, we can give daptomycin q. 48 hours. Will follow the repeat labs in the a.m. Consult nephrology in the a.m. 2. Heroin abuse: Monitor for withdrawal with clonidine and Ativan p.r.n. Needs counseling. 3. Hypertension: Continue her home metoprolol succinate, withholding parameters. Getting clonidine tapering dose for heroin withdrawal. Holding hydrochlorothiazide. Will monitor the blood pressure. 4. Gastroesophageal reflux disease: Continue omeprazole. 5. Deep venous thrombosis prophylaxis: Will place her on heparin subcutaneous. DISPOSITION: Closely monitor in the tele floor. PT/OT prior to discharge. Social service to help with discharge planning. Job ID: [id number] MTDD
[2022-02-08] MEDS: ACETAMINOPHEN 325 MG TAB PO PRN ×4 (03:29→17:13)
[2022-02-08] MEDS: HEPARIN SOD 5,000 UNIT/0.5 ML VIAL SQ SCH ×3 (05:46→21:05)
[2022-02-08 06:43] LABS: Basophils # (auto) 0.03 K/uL (0-0.2); Basophils % (auto) 0.5 %; Eosinophils # (auto) 0.19 K/uL (0-0.5); Hematocrit (blood only) 29.9 % (37-47); Hemoglobin 9.7 g/dL (12.0-16.0); Immature Granulocytes # (auto) 0.01 K/uL (0.00-0.02); Immature Granulocytes % (auto) 0.2 %; Lymphocytes # (auto) 1.74 K/uL (1.2-3.4); Lymphocytes % (auto) 27.8 %; Mean Corpuscular Hemoglobin 26.5 pg (25-34); Mean Corpuscular Hgb Conc 32.4 g/dL (32-36); Mean Corpuscular Volume 81.7 fL (80-100); Mean Platelet Volume 9.4 fL (7.4-10.4); Monocytes # (auto) 0.45 K/uL (0.11-0.59); Monocytes % (auto) 7.2 %; Neutrophils # (auto) 3.84 K/uL (1.4-6.5); Neutrophils % (auto) 61.3 %; Platelet Count 445 K/uL (130-400); RDW Coefficient of Variation 15.5 % (11.5-14.5); RDW Standard Deviation 45.9 fL (36.4-46.3); Red Blood Count 3.66 M/uL (4.2-5.4); White Blood Count 6.26 K/uL (4.8-10.8)
[2022-02-08 07:29] LABS: BUN Creatinine Ratio 15.9 (10-20); Calcium 8.6 mg/dl (8.5-10.1); Est GFR (African American) 24.7 ml/min; Est GFR (Non-African American) 21.3 ml/min; Magnesium 1.8 mg/dl (1.7-2.4); Potassium 3.6 mmol/L (3.5-5.1)
[2022-02-08] MEDS: cloNIDine HCL 0.1 MG TAB PO SCH ×4 (08:27→21:03)
[2022-02-08] MEDS: SODIUM CHLORIDE 0.9% 1000ML 1,000 ML IV SCH ×2 (08:28→19:25)
--- NOTE | 2022-02-08 09:35 | Nephrology Consultation ---
Date of Consultation February 08, 2022 Assessment & Plan (1) GLEN (acute kidney injury): improving stage 3 GLEN w/ baseline creatinine 0.4 and peak creatinine on 02/06/22 of 3.7. presume ATN though responding so far at least as at least in part prerenal. This in the setting of daptomycin therapy for MRSA bacteremia and with recent heroin use; CK are wnl. chemistries generally acceptable; some mild HTN. -f/u pending cultures -continue NS as tolerated -daily bmp -avoid nephrotoxins -no indication for urgent dialysis History of Present Illness Reason for Consultation: GLEN Requesting Physician: Dr Savage Attending Physician: Pedro Braswell MD History of Present Illness 51 y/o F whom I'm asked to evaluate for GLEN was admitted this morning w/ GLEN in the setting of outpatient therapy for vertebral osteomyelitis. PMH includes heroin abuse, recent admission here for MRSA bacteremia and vertebral osteomyelitis from which she signed out AMA, HTN, GERD, active tobacco abuse. Had been getting daily daptomycin infusions at [facility]; had been on vancomycin while in house (d/c 01/30). Most recently creatinine had been running 1.4 at 01/30 hospital discharge; then 3.4 on 02/04 and 3.6 on 02/06 for which advised to come to ER. CK on 02/04 was 110. Creatinine on presentation 2.8 last evening, to 2.5 this am. ACEI had been previously stopped; hctz held today and pt started on NS 100 ml/hr. ID c/s pending but for now plan is to continue dapto q 48 hr. her baseline creatinine as recently as 01/29/22 was 0.4. when I evaluated the pt at about 10 AM today she c/o severe back pain above BL iliac crests which she describes as "kidney pain" with standing/sitting or getting dressed; no sob; no n/v/ no edema; + c/o constipation. no voiding concerns. no nsaids but does tell me she's used heroin prior to admission. Allergies Allergy/AdvReac Type Severity Reaction Status Date / Time No Known Allergies Allergy Verified 02/07/22 20:19 Home Medications Medication Instructions Recorded Confirmed Type hydrochlorothiazide 25 mg tablet 25 mg PO HS 01/22/22 02/07/22 History metoprolol succinate 25 mg 25 mg PO HS 01/22/22 02/07/22 History tablet,extended release 24 hr omeprazole 20 mg capsule,delayed 20 mg PO HS 01/22/22 02/07/22 History release oxybutynin chloride 10 mg 10 mg PO HS 01/22/22 02/07/22 History tablet,extended release 24 hr clonidine HCl 0.1 mg tablet 0.1 mg PO BID 02/01/22 02/07/22 History acetaminophen-pamabrom 500 mg-25 1 tab PO QID PRN 02/07/22 02/07/22 History mg tablet (Midol) trazodone 50 mg tablet 50 mg PO HS PRN 02/07/22 02/07/22 History Patient History Medical History Acute osteomyelitis of lumbar spine Alcohol abuse Benzodiazepine abuse Cannabis abuse Chronic low back pain Cocaine abuse GERD (gastroesophageal reflux disease) Heroin abuse Hypertension Insomnia MRSA bacteremia Vertebral osteomyelitis Surgical History History of appendectomy History of cholecystectomy History of tubal ligation Hx of augmentation mammoplasty Social History Smoking Status: Current every day smoker Second Hand Exposure: No; Tobacco Cessation Education Requested by Patient: No Hx Alcohol Use: Yes Alcohol type: beer, wine and hard liquor Hx Substance Use: Yes Non-Prescribed Medications: Heroin Last Used Substance: Just Prior to Arrival Substance Use Type Other:: taking lorazepam Preferred Language: Dominican Communication Ability: Effective Biology Specialist Required: No Beliefs That Will Affect Care: None marital status: / Current Living Situation: Alone Feels Safe at Home: Yes Safety Concerns: Feels Safe At This Time Assistive Devices: None Review of Systems Review of Systems: All systems reviewed & are unremarkable except as noted in Subjective Physical Exam Constitutional: well developed, + acute distress (mild distress lying on her L side in position; tearful at times) and cooperative Eyes: EOM intact bilaterally ENMT: Ears: no external ear abnormality Nose: no external nose abnormality Mouth: + dry oral mucous membranes Neck: no nuchal rigidity Respiratory: normal respiratory effort Auscultation: + diminished lung sounds Cardiovascular: Rate/Rhythm: regular rate and regular rhythm Extremities: no edema Gastrointestinal (Abdomen): Inspection/Auscultation: normal bowel sounds Percussion/Palpation: abdomen soft; abdomen nontender Musculoskeletal: Extremities: strength 5/5 throughout Skin: no rashes, warm and dry Neurologic: barone, fluent speech, no tremor Psychiatric: Orientation: oriented x 3 Affect: + tearful affect Results & Data ([facility]) Vital Signs (Past 12 Hours) Vital Signs Temp Pulse Pulse Pulse Resp BP Pulse Ox 02/08/22 08:15 36.7 C 67 18 134/80 94 02/08/22 04:19 36.6 C 78 18 182/98 H 97 02/08/22 00:04 36.7 C 81 18 153/85 H 96 02/08/22 00:00 82 02/07/22 22:07 81 02/07/22 21:51 36.7 C 76 22 145/87 H 97 Laboratory Results 02/08/22 05:45 02/08/22 05:45 UA > trace protein, trace blood, trace LE and 5-10 WBC, no bacter; over 30 epis blood cxs pending Diagnostic Findings renal u/s unremarkable
[2022-02-08] MEDS: DAPTOmycin 350 MG in SYRINGE 0 ML IV SCH (11:44)
[2022-02-08] MEDS: LORazepam 2 MG/1 ML VIAL IV PRN ×2 (14:57→21:11)
--- NOTE | 2022-02-08 17:39 | Hospitalist Progress Note ---
Date of Service February 08, 2022 Assessment & Plan (1) GLEN (acute kidney injury): Plan: This is a 51-year-old female who was recently in the hospital for vertebral osteomyelitis, MRSA bacteremia, and heroin withdrawal, comes back because of acute kidney injury. 1. Acute kidney injury: Creatinine of 2.8 on admission, day prior to admission 3.6. On 01/31/2022, it was 1.4, on last admission it was 0.4-0.5. Last admission was in the first week of January. Could be from the vancomycin she received in the hospital, could be from the daptomycin. She was advised to stop lisinopril when she was in the ER on 01/31/2022. Seems to be currently still on hydrochlorothiazide, will hold the hydrochlorothiazide. Will place on IV normal saline 100 mL per hour. Renal ultrasound was okay. Will consult ID for the antibiotic recommendations. As per pharmacy, we can give daptomycin q. 48 hours. Follow labs. Nephrology also consulted. Appreciate their input Current Cr 2.5 2. Heroin abuse: Monitor for withdrawal with clonidine and Ativan p.r.n. Needs counseling. 3. Hypertension: Continue her home metoprolol succinate, withholding parameters. Getting clonidine tapering dose for heroin withdrawal. Holding hydrochlorothiazide. Will monitor the blood pressure. 4. Gastroesophageal reflux disease: Continue omeprazole. DVT prophylaxis: heparin subq DISPOSITION: Closely monitor in the tele floor. PT/OT prior to discharge. Admission and Anticipated Discharge Date Admission Date: February 07, 2022 Subjective Patient seen in follow-up of GLEN, in the setting of vertebral osteomyelitis, MRSA bacteremia, heroin use Currently patient is lying in bed, sleeping, but easily arousable Denies fevers, chills, chest pain, shortness of breath, says she does not feel very well though, has some abdominal discomfort Review of Systems Review of Systems: All systems reviewed & are unremarkable except as noted in Subjective Physical Exam Physical Exam: GENERAL: The patient is of moderate build, not in acute distress. HEENT: NC/AT, EOMI, Pupils equal, round and reactive to light. Oral mucosa moist. NECK: No JVD. No neck masses. CARDIOVASCULAR: S1 and S2 heard. Regular rate and rhythm. No murmur, no gallop. RESPIRATORY SYSTEM: Normal AP diameter. No accessory muscle use. No wheezing, no crackles. ABDOMEN: Soft, bowel sounds present, nontender, no distention. NEURO:Alert oriented, answering questions appropriately. Speech fluent, no facial asymmetry, moves extremities EXTREMITIES: No edema, no erythema. Results & Data Results & Data ([facility]) Vital Signs (Past 12 Hours) Vital Signs Temp Pulse Pulse Resp BP Pulse Ox 02/08/22 16:18 64 02/08/22 15:55 36.6 C 75 19 154/102 H 97 02/08/22 11:55 36.7 C 74 19 148/99 H 98 02/08/22 08:15 36.7 C 67 18 134/80 94 02/08/22 08:00 63 Laboratory Results 02/08/22 02/08/22 02/08/22 Range/Units 05:45 05:45 05:45 WBC 6.26 (4.8-10.8) K/uL RBC 3.66 L (4.2-5.4) M/uL Hgb 9.7 L (12.0-16.0) g/dL Hct 29.9 L (37-47) % MCV 81.7 (80-100) fL MCH 26.5 (25-34) pg MCHC 32.4 (32-36) g/dL RDW Std Deviation 45.9 (36.4-46.3) fL RDW Coeff of [place] 15.5 H (11.5-14.5) % Plt Count 445 H (130-400) K/uL MPV 9.4 (7.4-10.4) fL Immature Gran % (Auto) 0.2 % Neut % (Auto) 61.3 % Lymph % (Auto) 27.8 % [place] % (Auto) 7.2 % Eos % (Auto) 3.0 % Baso % (Auto) 0.5 % Neut # (Auto) 3.84 (1.4-6.5) K/uL Lymph # (Auto) 1.74 (1.2-3.4) K/uL [place] # (Auto) 0.45 (0.11-0.59) K/uL Eos # (Auto) 0.19 (0-0.5) K/uL Baso # (Auto) 0.03 (0-0.2) K/uL Immature Gran # (Auto) 0.01 (0.00-0.02) K/uL Sodium 134 L (136-145) mmol/L Potassium 3.6 (3.5-5.1) mmol/L Chloride 101 (98-107) mmol/L Carbon Dioxide 25 (21-32) mmol/L Anion Gap 8 (3-11) BUN 40 H (6-23) mg/dl Creatinine 2.52 H D (0.6-1.2) mg/dl Est Cr Clr Drug Dosing 21.0 ml/min Est GFR ( Amer) 24.7 ml/min Est GFR (Non-Af Amer) 21.3 ml/min BUN/Creatinine Ratio 15.9 (10-20) Glucose 95 (70-99(Fasting)) mg/dl Calcium 8.6 (8.5-10.1) mg/dl Magnesium 1.8 (1.7-2.4) mg/dl Total Creatine Kinase 400 H (26-192) U/L Urine Color Urine Appearance (Clear) Urine pH (4.5-7.5) Ur Specific [place] (1.000-1.030) Urine Protein (Negative) Urine Glucose (UA) (Negative) Urine Ketones (Negative) Urine Blood (Negative) Urine Nitrite (Negative) Urine Bilirubin (Negative) Urine Urobilinogen (Negative) Ur Leukocyte Esterase (Negative) Urine WBC (Auto) (0-5) /hpf Urine RBC (Auto) (0-4) /hpf U Hyaline Cast (Auto) (0-5) /lpf U Epithel Cells (Auto) (0-5) /lpf Urine Bacteria (Auto) (Negative) POC Ur Test SARS-CoV-2, RNA, NAAT (NEGATIVE) 02/07/22 02/07/22 02/07/22 Range/Units 19:57 19:57 19:11 WBC (4.8-10.8) K/uL RBC (4.2-5.4) M/uL Hgb (12.0-16.0) g/dL Hct (37-47) % MCV (80-100) fL MCH (25-34) pg MCHC (32-36) g/dL RDW Std Deviation (36.4-46.3) fL RDW Coeff of [place] (11.5-14.5) % Plt Count (130-400) K/uL MPV (7.4-10.4) fL Immature Gran % (Auto) % Neut % (Auto) % Lymph % (Auto) % [place] % (Auto) % Eos % (Auto) % Baso % (Auto) % Neut # (Auto) (1.4-6.5) K/uL Lymph # (Auto) (1.2-3.4) K/uL [place] # (Auto) (0.11-0.59) K/uL Eos # (Auto) (0-0.5) K/uL Baso # (Auto) (0-0.2) K/uL Immature Gran # (Auto) (0.00-0.02) K/uL Sodium (136-145) mmol/L Potassium (3.5-5.1) mmol/L Chloride (98-107) mmol/L Carbon Dioxide (21-32) mmol/L Anion Gap (3-11) BUN (6-23) mg/dl Creatinine (0.6-1.2) mg/dl Est Cr Clr Drug Dosing ml/min Est GFR ( Amer) ml/min Est GFR (Non-Af Amer) ml/min BUN/Creatinine Ratio (10-20) Glucose (70-99(Fasting)) mg/dl Calcium (8.5-10.1) mg/dl Magnesium (1.7-2.4) mg/dl Total Creatine Kinase (26-192) U/L Urine Color Yellow Urine Appearance Clear (Clear) Urine pH 5.0 (4.5-7.5) Ur Specific [place] 1.013 (1.000-1.030) Urine Protein Trace H (Negative) Urine Glucose (UA) Negative (Negative) Urine Ketones Negative (Negative) Urine Blood Trace H (Negative) Urine Nitrite Negative (Negative) Urine Bilirubin Negative (Negative) Urine Urobilinogen Negative (Negative) Ur Leukocyte Esterase Trace H (Negative) Urine WBC (Auto) 5-10 H (0-5) /hpf Urine RBC (Auto) 0-4 (0-4) /hpf U Hyaline Cast (Auto) 5-10 H (0-5) /lpf U Epithel Cells (Auto) >30 H (0-5) /lpf Urine Bacteria (Auto) Negative (Negative) POC Ur Test Cancelled SARS-CoV-2, RNA, NAAT NEGATIVE (NEGATIVE) 02/07/22 02/07/22 Range/Units 18:51 18:51 WBC 8.65 (4.8-10.8) K/uL RBC 3.75 L (4.2-5.4) M/uL Hgb 10.0 L (12.0-16.0) g/dL Hct 30.6 L (37-47) % MCV 81.6 (80-100) fL MCH 26.7 (25-34) pg MCHC 32.7 (32-36) g/dL RDW Std Deviation 46.0 (36.4-46.3) fL RDW Coeff of [place] 15.7 H (11.5-14.5) % Plt Count 524 H (130-400) K/uL MPV 9.2 (7.4-10.4) fL Immature Gran % (Auto) % Neut % (Auto) % Lymph % (Auto) % [place] % (Auto) % Eos % (Auto) % Baso % (Auto) % Neut # (Auto) (1.4-6.5) K/uL Lymph # (Auto) (1.2-3.4) K/uL [place] # (Auto) (0.11-0.59) K/uL Eos # (Auto) (0-0.5) K/uL Baso # (Auto) (0-0.2) K/uL Immature Gran # (Auto) (0.00-0.02) K/uL Sodium 134 L (136-145) mmol/L Potassium 3.9 (3.5-5.1) mmol/L Chloride 98 (98-107) mmol/L Carbon Dioxide 26 (21-32) mmol/L Anion Gap 10 (3-11) BUN 42 H (6-23) mg/dl Creatinine 2.84 H D (0.6-1.2) mg/dl Est Cr Clr Drug Dosing 19.6 ml/min Est GFR ( Amer) 21.4 ml/min Est GFR (Non-Af Amer) 18.5 ml/min BUN/Creatinine Ratio 14.8 (10-20) Glucose 113 H (70-99(Fasting)) mg/dl Calcium 9.3 (8.5-10.1) mg/dl Magnesium (1.7-2.4) mg/dl Total Creatine Kinase (26-192) U/L Urine Color Urine Appearance (Clear) Urine pH (4.5-7.5) Ur Specific [place] (1.000-1.030) Urine Protein (Negative) Urine Glucose (UA) (Negative) Urine Ketones (Negative) Urine Blood (Negative) Urine Nitrite (Negative) Urine Bilirubin (Negative) Urine Urobilinogen (Negative) Ur Leukocyte Esterase (Negative) Urine WBC (Auto) (0-5) /hpf Urine RBC (Auto) (0-4) /hpf U Hyaline Cast (Auto) (0-5) /lpf U Epithel Cells (Auto) (0-5) /lpf Urine Bacteria (Auto) (Negative) POC Ur Test SARS-CoV-2, RNA, NAAT (NEGATIVE) Medications Administered Current Inpatient Medications Acetaminophen (Acetaminophen 325 Mg Tab) 650 mg PO Q4H PRN PRN Reason: Pain or Fever Stop: 03/09/22 21:42 Last Admin: 02/08/22 17:13 Dose: 650 mg Documented by: Clonidine HCl (Clonidine Hcl 0.1 Mg Tab) 0.1 mg PO Q4HWA [facility] Stop: 03/10/22 07:59 Last Admin: 02/08/22 17:13 Dose: 0.1 mg Documented by: Clonidine HCl (Clonidine Hcl 0.1 Mg Tab) 0.1 mg PO Q2H PRN PRN Reason: For ANY 2 Symptoms Stop: 03/09/22 21:42 Diphenoxylate HCl/Atropine (Diphenoxylate/Atropine 2.5/0.025mg Tab) 1 tab PO Q4H PRN PRN Reason: Abdominal Cramping/Diarrhea Stop: 03/09/22 21:42 Heparin Sodium (Porcine) (Heparin Sod 5,000 Unit/0.5 Ml Vial) 5,000 units SQ Q8 [facility] Stop: 03/09/22 21:59 Last Admin: 02/08/22 14:48 Dose: 5,000 units Documented by: Sodium Chloride (Nss 1000ml) 1,000 mls @ 100 mls/hr IV .Q10H [facility] Stop: 03/09/22 21:42 Last Admin: 02/08/22 08:28 Dose: 100 mls/hr Documented by: Daptomycin 350 mg/ Syringe 7 mls @ 3.5 mls/min IV Q48H [facility]; Protocol Stop: 02/22/22 10:59 Last Admin: 02/08/22 11:44 Dose: 3.5 mls/min Documented by: Lorazepam (Lorazepam 2 Mg/1 Ml Vial) 1 mg IV Q4H PRN PRN Reason: Anxiety/Agitation Stop: 03/09/22 21:42 Last Admin: 02/08/22 14:57 Dose: 1 mg Documented by: Metoprolol Succinate (Metoprolol Succ 25mg Ext Rel Tab) 25 mg PO HS [facility] Stop: 03/09/22 21:42 Last Admin: 02/07/22 23:11 Dose: 25 mg Documented by: Miscellaneous (Remove Nicoderm Patch) 1 ea N/A DAILY@0859 [facility] Stop: 03/10/22 16:43 Miscellaneous Information (Daptomycin Consult Active) 1 ea N/A UD PRN PRN Reason: Consult Stop: 03/10/22 07:48 Nicotine (Nicotine 14 Mg/24 Hr Patch) 14 mg TD QAM [facility] Stop: 03/10/22 16:44 Nitroglycerin (Nitroglycerin Sl 0.4 Mg/Tab Tab) 0.4 mg SL UD PRN PRN Reason: Chest Pain Stop: 03/09/22 21:42 Ondansetron HCl (Ondansetron Inj 2 Mg/Ml 2 Ml Vial) 4 mg IV Q6H PRN PRN Reason: Nausea Stop: 03/09/22 21:42 Oxybutynin Chloride (Oxybutynin Chloride Xl 5 Mg Tabcr) 10 mg PO [facility] Stop: 03/09/22 21:42 Last Admin: 02/07/22 23:10 Dose: 10 mg Documented by: Pantoprazole Sodium (Pantoprazole 40 Mg Tab) 40 mg PO HS [facility] Stop: 03/09/22 21:42 Last Admin: 02/07/22 23:10 Dose: 40 mg Documented by: Polyethylene Glycol (Polyethylene (Miralax) 17 Gm Pack) 17 gm PO DAILY PRN PRN Reason: Constipation Stop: 03/09/22 21:42 Trazodone HCl (Trazodone Hcl 50 Mg Tab) 50 mg PO HS PRN PRN Reason: Sleep Stop: 03/09/22 21:42
[2022-02-08] MEDS: NICOTINE 14 MG/24 HR PATCH TD SCH (18:12)
[2022-02-08] MEDS: OXYBUTYNIN CHLORIDE XL 5 MG TABCR PO SCH (21:04)
[2022-02-08] MEDS: METOPROLOL SUCC 25MG EXT REL TAB PO SCH (21:04)
[2022-02-08] MEDS: PANTOprazole 40 MG TAB PO SCH (21:05)
[2022-02-08] MEDS: traZODone HCL 50 MG TAB PO PRN (21:10)
[2022-02-09] MEDS: SODIUM CHLORIDE 0.9% 1000ML 1,000 ML IV SCH ×2 (05:06→16:33)
[2022-02-09] MEDS: HEPARIN SOD 5,000 UNIT/0.5 ML VIAL SQ SCH ×3 (05:06→20:47)
[2022-02-09 07:18] LABS: Hematocrit (blood only) 30.6 % (37-47); Hemoglobin 10.1 g/dL (12.0-16.0); Mean Corpuscular Volume 81.8 fL (80-100); Mean Platelet Volume 9.2 fL (7.4-10.4); Platelet Count 425 K/uL (130-400); RDW Coefficient of Variation 15.3 % (11.5-14.5); Red Blood Count 3.74 M/uL (4.2-5.4); White Blood Count 7.27 K/uL (4.8-10.8)
[2022-02-09] MEDS: ACETAMINOPHEN 325 MG TAB PO PRN ×3 (07:28→20:49)
[2022-02-09] MEDS: LORazepam 2 MG/1 ML VIAL IV PRN ×3 (07:28→23:11)
[2022-02-09] MEDS: cloNIDine HCL 0.1 MG TAB PO SCH ×4 (07:30→20:46)
[2022-02-09 07:45] LABS: BUN Creatinine Ratio 15.6 (10-20); Calcium 8.7 mg/dl (8.5-10.1); Creatinine Clr Calc Pharmacy 25.4 ml/min; Est GFR (African American) 30.5 ml/min; Est GFR (Non-African American) 26.3 ml/min; Magnesium 1.6 mg/dl (1.7-2.4); Phosphorus 3.5 mg/dl (2.5-4.9); Potassium 3.5 mmol/L (3.5-5.1)
[2022-02-09] MEDS: NICOTINE 14 MG/24 HR PATCH TD SCH (08:58)
--- NOTE | 2022-02-09 09:40 | Nephrology Progress Note ---
Date of Service February 09, 2022 Assessment & Plan (1) GLEN (acute kidney injury): Plan: improving stage 3 GLEN w/ baseline creatinine 0.4 and peak creatinine on 02/06/22 of 3.7. presume ATN though responding so far at least as at least in part prerenal. This in the setting of daptomycin therapy for MRSA bacteremia and with recent heroin use; CK are wnl. chemistries generally acceptable; some mild HTN, but variable. -Renal functions are slowly improving, -continue NS as tolerated -daily bmp -avoid nephrotoxins -no indication for urgent dialysis Admission and Anticipated Discharge Date Admission Date: February 07, 2022 Subjective Patient seen in follow-up of GLEN, in the setting of vertebral osteomyelitis, MRSA bacteremia, heroin use Comfortable Denies fevers, chills, chest pain, shortness of breath, Review of Systems Review of Systems: All systems reviewed & are unremarkable except as noted in Subjective Physical Exam Physical Exam: GENERAL: Comfortabel,not in acute distress. HEENT: Pupils equal, round and reactive to light. Oral mucosa moist. NECK: No JVD, no neck masses. CARDIOVASCULAR: S1 and S2 heard. Regular rate and rhythm. No murmur, no gallop. RESPIRATORY SYSTEM: Normal AP diameter. No accessory muscle use. No wheezing, no crackles. ABDOMEN: Soft, bowel sounds present. Mild left lower quadrant tenderness. No guarding. no rigidity, no distention. CENTRAL NERVOUS SYSTEM: Cranial nerves II-XII grossly intact, nonfocal. EXTREMITIES: No edema, no erythema Results & Data ([facility]) Vital Signs (Past 12 Hours) Vital Signs Temp Pulse Pulse Pulse Resp BP Pulse Ox 02/09/22 07:37 36.7 C 73 16 162/100 H 95 02/09/22 04:21 37.3 C 67 16 133/72 97 02/08/22 23:21 74 02/08/22 23:05 37.0 C 65 18 142/78 H 95 Laboratory Results 02/09/22 07:00 02/09/22 07:00
--- NOTE | 2022-02-09 10:28 | Hospitalist Progress Note ---
Date of Service February 09, 2022 Assessment & Plan (1) GLEN (acute kidney injury): Plan: This is a 51-year-old female who was recently in the hospital for vertebral osteomyelitis, MRSA bacteremia, and heroin withdrawal, comes back because of acute kidney injury. 1. Acute kidney injury: Creatinine of 2.8 on admission, day prior to admission 3.6. On 01/31/2022, it was 1.4, on last admission it was 0.4-0.5. Last admission was in the first week of January. Could be from the vancomycin she received in the hospital, could be from the daptomycin. She was advised to stop lisinopril when she was in the ER on 01/31/2022. Seems to be currently still on hydrochlorothiazide, will hold the hydrochlorothiazide. Will place on IV normal saline 100 mL per hour. Renal ultrasound was okay. Will consult ID for the antibiotic recommendations. As per pharmacy, we can give daptomycin q. 48 hours. Follow labs. Nephrology also consulted. Appreciate their input Current Cr 2.1 down from 2.5 2. Heroin abuse: Monitor for withdrawal with clonidine and Ativan p.r.n. Needs counseling. 3. Hypertension: Continue her home metoprolol succinate, withholding parameters. Getting clonidine tapering dose for heroin withdrawal. Holding hydrochlorothiazide. Will monitor the blood pressure. 4. Gastroesophageal reflux disease: Continue omeprazole. DVT prophylaxis: heparin subq DISPOSITION: Closely monitor in the tele floor. PT/OT prior to discharge. Admission and Anticipated Discharge Date Admission Date: February 07, 2022 Subjective Patient seen in follow-up of GLEN, in the setting of vertebral osteomyelitis, MRSA bacteremia, heroin use Currently patient is lying in bed, resting comfortably Denies fevers, chills, chest pain, shortness of breath, abd. pain, n/v Reports feeling better today Review of Systems Review of Systems: All systems reviewed & are unremarkable except as noted in Subjective Physical Exam Physical Exam: GENERAL: The patient is of moderate build, not in acute distress. HEENT: NC/AT, EOMI, Pupils equal, round and reactive to light. Oral mucosa moist. NECK: No JVD. No neck masses. CARDIOVASCULAR: S1 and S2 heard. Regular rate and rhythm. No murmur, no gallop. RESPIRATORY SYSTEM: Normal AP diameter. No accessory muscle use. No wheezing, no crackles. ABDOMEN: Soft, bowel sounds present, nontender, no distention. NEURO:Alert oriented, answering questions appropriately. Speech fluent, no facial asymmetry, moves extremities EXTREMITIES: No edema, no erythema. Results & Data Results & Data ([facility]) Vital Signs (Past 12 Hours) Vital Signs Temp Pulse Pulse Pulse Resp BP Pulse Ox 02/09/22 07:37 36.7 C 73 16 162/100 H 95 02/09/22 04:21 37.3 C 67 16 133/72 97 02/08/22 23:21 74 02/08/22 23:05 37.0 C 65 18 142/78 H 95 Laboratory Results 02/09/22 02/09/22 Range/Units 07:00 07:00 WBC 7.27 (4.8-10.8) K/uL RBC 3.74 L (4.2-5.4) M/uL Hgb 10.1 L (12.0-16.0) g/dL Hct 30.6 L (37-47) % MCV 81.8 (80-100) fL MCH 27.0 (25-34) pg MCHC 33.0 (32-36) g/dL RDW Std Deviation 46.0 (36.4-46.3) fL RDW Coeff of [place] 15.3 H (11.5-14.5) % Plt Count 425 H (130-400) K/uL MPV 9.2 (7.4-10.4) fL Sodium 136 (136-145) mmol/L Potassium 3.5 (3.5-5.1) mmol/L Chloride 102 (98-107) mmol/L Carbon Dioxide 25 (21-32) mmol/L Anion Gap 9 (3-11) BUN 33 H (6-23) mg/dl Creatinine 2.12 H D (0.6-1.2) mg/dl Est Cr Clr Drug Dosing 25.4 ml/min Est GFR ( Amer) 30.5 ml/min Est GFR (Non-Af Amer) 26.3 ml/min BUN/Creatinine Ratio 15.6 (10-20) Glucose 91 (70-99(Fasting)) mg/dl Calcium 8.7 (8.5-10.1) mg/dl Phosphorus 3.5 (2.5-4.9) mg/dl Magnesium 1.6 L (1.7-2.4) mg/dl Total Creatine Kinase 478 H (26-192) U/L Medications Administered Current Inpatient Medications Acetaminophen (Acetaminophen 325 Mg Tab) 650 mg PO Q4H PRN PRN Reason: Pain or Fever Stop: 03/09/22 21:42 Last Admin: 02/09/22 07:28 Dose: 650 mg Documented by: Clonidine HCl (Clonidine Hcl 0.1 Mg Tab) 0.1 mg PO Q4HWA [facility] Stop: 03/10/22 07:59 Last Admin: 02/09/22 07:30 Dose: 0.1 mg Documented by: Clonidine HCl (Clonidine Hcl 0.1 Mg Tab) 0.1 mg PO Q2H PRN PRN Reason: For ANY 2 Symptoms Stop: 03/09/22 21:42 Diphenoxylate HCl/Atropine (Diphenoxylate/Atropine 2.5/0.025mg Tab) 1 tab PO Q4H PRN PRN Reason: Abdominal Cramping/Diarrhea Stop: 03/09/22 21:42 Heparin Sodium (Porcine) (Heparin Sod 5,000 Unit/0.5 Ml Vial) 5,000 units SQ Q8 [facility] Stop: 03/09/22 21:59 Last Admin: 02/09/22 05:06 Dose: 5,000 units Documented by: Sodium Chloride (Nss 1000ml) 1,000 mls @ 100 mls/hr IV .Q10H [facility] Stop: 03/09/22 21:42 Last Admin: 02/09/22 05:06 Dose: 100 mls/hr Documented by: Daptomycin 350 mg/ Syringe 7 mls @ 3.5 mls/min IV Q48H [facility]; Protocol Stop: 02/22/22 10:59 Last Admin: 02/08/22 11:44 Dose: 3.5 mls/min Documented by: Lorazepam (Lorazepam 2 Mg/1 Ml Vial) 1 mg IV Q4H PRN PRN Reason: Anxiety/Agitation Stop: 03/09/22 21:42 Last Admin: 02/09/22 07:28 Dose: 1 mg Documented by: Metoprolol Succinate (Metoprolol Succ 25mg Ext Rel Tab) 25 mg PO HS [facility] Stop: 03/09/22 21:42 Last Admin: 02/08/22 21:04 Dose: 25 mg Documented by: Miscellaneous (Remove Nicoderm Patch) 1 ea N/A DAILY@0859 [facility] Stop: 03/10/22 16:43 Last Admin: 02/09/22 09:02 Dose: 1 ea Documented by: Miscellaneous Information (Daptomycin Consult Active) 1 ea N/A UD PRN PRN Reason: Consult Stop: 03/10/22 07:48 Nicotine (Nicotine 14 Mg/24 Hr Patch) 14 mg TD QAM [facility] Stop: 03/10/22 16:44 Last Admin: 02/09/22 08:58 Dose: 14 mg Documented by: Nitroglycerin (Nitroglycerin Sl 0.4 Mg/Tab Tab) 0.4 mg SL UD PRN PRN Reason: Chest Pain Stop: 03/09/22 21:42 Ondansetron HCl (Ondansetron Inj 2 Mg/Ml 2 Ml Vial) 4 mg IV Q6H PRN PRN Reason: Nausea Stop: 03/09/22 21:42 Oxybutynin Chloride (Oxybutynin Chloride Xl 5 Mg Tabcr) 10 mg PO HS [facility] Stop: 03/09/22 21:42 Last Admin: 02/08/22 21:04 Dose: 10 mg Documented by: Pantoprazole Sodium (Pantoprazole 40 Mg Tab) 40 mg PO HS [facility] Stop: 03/09/22 21:42 Last Admin: 02/08/22 21:05 Dose: 40 mg Documented by: Polyethylene Glycol (Polyethylene (Miralax) 17 Gm Pack) 17 gm PO DAILY PRN PRN Reason: Constipation Stop: 03/09/22 21:42 Trazodone HCl (Trazodone Hcl 50 Mg Tab) 50 mg PO HS PRN PRN Reason: Sleep Stop: 03/09/22 21:42 Last Admin: 02/08/22 21:10 Dose: 50 mg Documented by:
[2022-02-09] MEDS: METOPROLOL SUCC 25MG EXT REL TAB PO SCH (20:47)
[2022-02-09] MEDS: OXYBUTYNIN CHLORIDE XL 5 MG TABCR PO SCH (20:47)
[2022-02-09] MEDS: PANTOprazole 40 MG TAB PO SCH (20:47)
[2022-02-09] MEDS: traZODone HCL 50 MG TAB PO PRN (20:49)
[2022-02-10] MEDS: ACETAMINOPHEN 325 MG TAB PO PRN ×3 (05:08→20:07)
[2022-02-10] MEDS: HEPARIN SOD 5,000 UNIT/0.5 ML VIAL SQ SCH ×3 (05:08→20:08)
[2022-02-10 06:07] LABS: Hematocrit (blood only) 31.3 % (37-47); Mean Corpuscular Hemoglobin 26.5 pg (25-34); Mean Corpuscular Hgb Conc 31.9 g/dL (32-36); Mean Platelet Volume 9.9 fL (7.4-10.4); Platelet Count 396 K/uL (130-400); RDW Coefficient of Variation 15.5 % (11.5-14.5); RDW Standard Deviation 47.3 fL (36.4-46.3); Red Blood Count 3.77 M/uL (4.2-5.4); White Blood Count 6.74 K/uL (4.8-10.8)
[2022-02-10 06:24] LABS: BUN Creatinine Ratio 15.5 (10-20); Calcium 9.1 mg/dl (8.5-10.1); Creatinine Clr Calc Pharmacy 33.4 ml/min; Est GFR (African American) 40.3 ml/min; Est GFR (Non-African American) 34.8 ml/min; Magnesium 1.6 mg/dl (1.7-2.4); Phosphorus 3.7 mg/dl (2.5-4.9); Potassium 3.9 mmol/L (3.5-5.1)
[2022-02-10] MEDS: LORazepam 2 MG/1 ML VIAL IV PRN ×3 (07:27→20:08)
[2022-02-10] MEDS: cloNIDine HCL 0.1 MG TAB PO SCH ×4 (07:27→20:08)
[2022-02-10] MEDS ORDERED: MAGNESIUM SULFATE / D5W 1 GM/100 ML BAG IV ONE (08:15)
--- NOTE | 2022-02-10 08:19 | Hospitalist Progress Note ---
Date of Service February 10, 2022 Assessment & Plan (1) GLEN (acute kidney injury): Plan: This is a 51-year-old female who was recently in the hospital for vertebral osteomyelitis, MRSA bacteremia, and heroin withdrawal, comes back because of acute kidney injury. 1. Acute kidney injury: Creatinine of 2.8 on admission, day prior to admission 3.6. On 01/31/2022, it was 1.4, on last admission it was 0.4-0.5. Last admission was in the first week of January. Could be from the vancomycin she received in the hospital, could be from the daptomycin. She was advised to stop lisinopril when she was in the ER on 01/31/2022. Seems to be currently still on hydrochlorothiazide, will hold the hydrochlorothiazide. Cont. IV normal saline 100 mL per hour. Renal ultrasound was okay. Will consult ID for the antibiotic recommendations. As per pharmacy, we can give daptomycin q. 48 hours. Follow labs. Nephrology also consulted. Appreciate their input Current Cr 1.7 (02/10) down from 2.5 History of MRSA bacteremia, vertebral osteomyelitis Will consult ID for the antibiotic recommendations. For now continue IV daptomycin every 48 hours, per pharmacy Patient reports increased numbness in buttocks area, and radiating down to her legs for past 2 days, now increased Given her GLEN, hesitant about imaging study with contrast, will further discuss with orthopedics/ and nephrology/ ID 2. Heroin abuse: Monitor for withdrawal with clonidine and Ativan p.r.n. Needs counseling. 3. Hypertension: Continue her home metoprolol succinate, withholding parameters. Getting clonidine tapering dose for heroin withdrawal. Holding hydrochlorothiazide. Will monitor the blood pressure. 4. Gastroesophageal reflux disease: Continue omeprazole. DVT prophylaxis: heparin subq DISPOSITION: Closely monitor in the tele floor. PT/OT prior to discharge. Admission and Anticipated Discharge Date Admission Date: February 07, 2022 Subjective Patient seen in follow-up of GLEN, in the setting of vertebral osteomyelitis, MRSA bacteremia, heroin use Currently patient is lying in bed, in NAD Reports she has been having numbness in her buttocks area, and radiating down to her legs for past 2 days, says now it is increased Denies fevers, chills, chest pain, shortness of breath, abd. pain, n/v Review of Systems Review of Systems: All systems reviewed & are unremarkable except as noted in Subjective Physical Exam Physical Exam: GENERAL: The patient is of moderate build, not in acute distress. HEENT: NC/AT, EOMI, Pupils equal, round and reactive to light. Oral mucosa moist. NECK: No JVD. No neck masses. CARDIOVASCULAR: S1 and S2 heard. Regular rate and rhythm. No murmur, no gallop. RESPIRATORY SYSTEM: Normal AP diameter. No accessory muscle use. No wheezing, no crackles. ABDOMEN: Soft, bowel sounds present, nontender, no distention. NEURO:Alert oriented, answering questions appropriately. Speech fluent, no facial asymmetry, moves extremities EXTREMITIES: No edema, no erythema. Results & Data Results & Data ([facility]) Vital Signs (Past 12 Hours) Vital Signs Temp Pulse Pulse Pulse Resp BP Pulse Ox 02/10/22 08:01 36.6 C 81 18 183/106 H 98 02/10/22 05:24 36.6 C 65 18 166/93 H 97 02/10/22 01:36 65 02/10/22 01:02 36.7 C 76 18 160/93 H 97 Laboratory Results 02/10/22 02/10/22 Range/Units 05:18 05:18 WBC 6.74 (4.8-10.8) K/uL RBC 3.77 L (4.2-5.4) M/uL Hgb 10.0 L (12.0-16.0) g/dL Hct 31.3 L (37-47) % MCV 83.0 (80-100) fL MCH 26.5 (25-34) pg MCHC 31.9 L (32-36) g/dL RDW Std Deviation 47.3 H (36.4-46.3) fL RDW Coeff of [place] 15.5 H (11.5-14.5) % Plt Count 396 (130-400) K/uL MPV 9.9 (7.4-10.4) fL Sodium 138 (136-145) mmol/L Potassium 3.9 (3.5-5.1) mmol/L Chloride 105 (98-107) mmol/L Carbon Dioxide 26 (21-32) mmol/L Anion Gap 7 (3-11) BUN 26 H (6-23) mg/dl Creatinine 1.68 H D (0.6-1.2) mg/dl Est Cr Clr Drug Dosing 33.4 ml/min Est GFR ( Amer) 40.3 ml/min Est GFR (Non-Af Amer) 34.8 ml/min BUN/Creatinine Ratio 15.5 (10-20) Glucose 85 (70-99(Fasting)) mg/dl Calcium 9.1 (8.5-10.1) mg/dl Phosphorus 3.7 (2.5-4.9) mg/dl Magnesium 1.6 L (1.7-2.4) mg/dl Total Creatine Kinase 292 H (26-192) U/L Medications Administered Current Inpatient Medications Acetaminophen (Acetaminophen 325 Mg Tab) 650 mg PO Q4H PRN PRN Reason: Pain or Fever Stop: 03/09/22 21:42 Last Admin: 02/10/22 05:08 Dose: 650 mg Documented by: Clonidine HCl (Clonidine Hcl 0.1 Mg Tab) 0.1 mg PO Q4HWA [facility] Stop: 03/10/22 07:59 Last Admin: 02/10/22 07:27 Dose: 0.1 mg Documented by: Clonidine HCl (Clonidine Hcl 0.1 Mg Tab) 0.1 mg PO Q2H PRN PRN Reason: For ANY 2 Symptoms Stop: 03/09/22 21:42 Diphenoxylate HCl/Atropine (Diphenoxylate/Atropine 2.5/0.025mg Tab) 1 tab PO Q4H PRN PRN Reason: Abdominal Cramping/Diarrhea Stop: 03/09/22 21:42 Heparin Sodium (Porcine) (Heparin Sod 5,000 Unit/0.5 Ml Vial) 5,000 units SQ Q8 [facility] Stop: 03/09/22 21:59 Last Admin: 02/10/22 05:08 Dose: 5,000 units Documented by: Daptomycin 350 mg/ Syringe 7 mls @ 3.5 mls/min IV Q48H [facility]; Protocol Stop: 02/22/22 10:59 Last Admin: 02/08/22 11:44 Dose: 3.5 mls/min Documented by: Magnesium Sulfate/Dextrose (Magnesium Sulfate / D5w) 1 gm in 100 mls @ 50 mls/hr IV ONE ONE Stop: 02/10/22 10:14 Lorazepam (Lorazepam 2 Mg/1 Ml Vial) 1 mg IV Q4H PRN PRN Reason: Anxiety/Agitation Stop: 03/09/22 21:42 Last Admin: 02/10/22 07:27 Dose: 1 mg Documented by: Metoprolol Succinate (Metoprolol Succ 25mg Ext Rel Tab) 25 mg PO [facility] Stop: 03/09/22 21:42 Last Admin: 02/09/22 20:47 Dose: 25 mg Documented by: Miscellaneous (Remove Nicoderm Patch) 1 ea N/A DAILY@0859 [facility] Stop: 03/10/22 16:43 Last Admin: 02/09/22 09:02 Dose: 1 ea Documented by: Miscellaneous Information (Daptomycin Consult Active) 1 ea N/A UD PRN PRN Reason: Consult Stop: 03/10/22 07:48 Nicotine (Nicotine 14 Mg/24 Hr Patch) 14 mg TD QAM [facility] Stop: 03/10/22 16:44 Last Admin: 02/09/22 08:58 Dose: 14 mg Documented by: Nitroglycerin (Nitroglycerin Sl 0.4 Mg/Tab Tab) 0.4 mg SL UD PRN PRN Reason: Chest Pain Stop: 03/09/22 21:42 Ondansetron HCl (Ondansetron Inj 2 Mg/Ml 2 Ml Vial) 4 mg IV Q6H PRN PRN Reason: Nausea Stop: 03/09/22 21:42 Oxybutynin Chloride (Oxybutynin Chloride Xl 5 Mg Tabcr) 10 mg PO [facility] Stop: 03/09/22 21:42 Last Admin: 02/09/22 20:47 Dose: 10 mg Documented by: Pantoprazole Sodium (Pantoprazole 40 Mg Tab) 40 mg PO [facility] Stop: 03/09/22 21:42 Last Admin: 02/09/22 20:47 Dose: 40 mg Documented by: Polyethylene Glycol (Polyethylene (Miralax) 17 Gm Pack) 17 gm PO DAILY PRN PRN Reason: Constipation Stop: 03/09/22 21:42 Last Admin: 02/10/22 05:56 Dose: 17 gm Documented by: Trazodone HCl (Trazodone Hcl 50 Mg Tab) 50 mg PO HS PRN PRN Reason: Sleep Stop: 03/09/22 21:42 Last Admin: 02/09/22 20:49 Dose: 50 mg Documented by:
[2022-02-10] MEDS: NICOTINE 14 MG/24 HR PATCH TD SCH (09:44)
[2022-02-10] MEDS: DAPTOmycin 350 MG in SYRINGE 0 ML IV SCH (12:08)
[2022-02-10] MEDS: PANTOprazole 40 MG TAB PO SCH (20:08)
[2022-02-10] MEDS: OXYBUTYNIN CHLORIDE XL 5 MG TABCR PO SCH (20:08)
[2022-02-10] MEDS: METOPROLOL SUCC 25MG EXT REL TAB PO SCH (20:08)
[2022-02-11] MEDS: traZODone HCL 50 MG TAB PO PRN (00:42)
[2022-02-11] MEDS: ACETAMINOPHEN 325 MG TAB PO PRN ×3 (05:25→20:49)
[2022-02-11] MEDS: HEPARIN SOD 5,000 UNIT/0.5 ML VIAL SQ SCH ×3 (05:36→22:31)
[2022-02-11 06:52] LABS: Calcium 9.3 mg/dl (8.5-10.1); Creatinine Clr Calc Pharmacy 27.8 ml/min; Est GFR (African American) 32.7 ml/min; Est GFR (Non-African American) 28.2 ml/min; Magnesium 1.7 mg/dl (1.7-2.4); Phosphorus 4.7 mg/dl (2.5-4.9); Potassium 4.1 mmol/L (3.5-5.1)
[2022-02-11] MEDS ORDERED: MAGNESIUM SULFATE / D5W 1 GM/100 ML BAG IV ONE (08:09)
--- NOTE | 2022-02-11 08:09 | Hospitalist Progress Note ---
Date of Service February 11, 2022 Assessment & Plan (1) GLEN (acute kidney injury): Plan: This is a 51-year-old female who was recently in the hospital for vertebral osteomyelitis, MRSA bacteremia, and heroin withdrawal, comes back because of acute kidney injury. 1. Acute kidney injury: Creatinine of 2.8 on admission, day prior to admission 3.6. On 01/31/2022, it was 1.4, on last admission it was 0.4-0.5. Last admission was in the first week of January. Could be from the vancomycin she received in the hospital, could be from the daptomycin. She was advised to stop lisinopril when she was in the ER on 01/31/2022. Seems to be currently still on hydrochlorothiazide, will hold the hydrochlorothiazide. Continued IV normal saline 100 mL per hour - stop now (02/11) Renal ultrasound was okay. Will consult ID for the antibiotic recommendations. As per pharmacy, we can give daptomycin q. 48 hours. Follow labs. Nephrology also consulted. Appreciate their input Cr 1.7 (02/10) down from 2.5 (02/11) Cr 2.0 - stop IVF History of MRSA bacteremia, vertebral osteomyelitis ID consulted for the antibiotic recommendations. For now continue IV daptomycin every 48 hours, per pharmacy Patient reports increased numbness in buttocks area, and radiating down to her legs for past few days, Given her GLEN, hesitant about imaging study with contrast,therefore further discuss with orthopedics/ and nephrology/ ID Dr. Reno (ortho-spine) ordered repeat spine MRI w/o contrast 2. Heroin abuse: Monitor for withdrawal with clonidine and Ativan p.r.n. Needs counseling. 3. Hypertension: Continue her home metoprolol succinate, withholding parameters. Getting clonidine tapering dose for heroin withdrawal. Holding hydrochlorothiazide. Will monitor the blood pressure. 4. Gastroesophageal reflux disease: Continue omeprazole. DVT prophylaxis: heparin subq DISPOSITION: Closely monitor in the tele floor. PT/OT prior to discharge. Admission and Anticipated Discharge Date Admission Date: February 07, 2022 Subjective Patient seen in follow-up of GLEN, in the setting of vertebral osteomyelitis, MRSA bacteremia, heroin use Currently patient is sitting up in bed, in NAD Reports she has been having numbness in her buttocks area, and radiating down to her legs for past few days Denies fevers, chills, chest pain, shortness of breath, abd. pain, n/v Pt seen by nephrology and ortho-spine Review of Systems Review of Systems: All systems reviewed & are unremarkable except as noted in Subjective Physical Exam Physical Exam: GENERAL: The patient is of moderate build, not in acute distress. HEENT: NC/AT, EOMI, Pupils equal, round and reactive to light. Oral mucosa moist. NECK: No JVD. No neck masses. CARDIOVASCULAR: S1 and S2 heard. Regular rate and rhythm. No murmur, no gallop. RESPIRATORY SYSTEM: Normal AP diameter. No accessory muscle use. No wheezing, no crackles. ABDOMEN: Soft, bowel sounds present, nontender, no distention. NEURO:Alert oriented, answering questions appropriately. Speech fluent, no facial asymmetry, moves extremities EXTREMITIES: No edema, no erythema. Results & Data Results & Data ([facility]) Vital Signs (Past 12 Hours) Vital Signs Temp Pulse Pulse Pulse Resp BP Pulse Ox 02/11/22 03:57 36.8 C 64 18 132/71 95 02/11/22 00:00 123 H 02/10/22 23:22 37.2 C 79 18 136/82 96 Laboratory Results 02/11/22 Range/Units 05:48 Sodium 136 (136-145) mmol/L Potassium 4.1 (3.5-5.1) mmol/L Chloride 102 (98-107) mmol/L Carbon Dioxide 26 (21-32) mmol/L Anion Gap 8 (3-11) BUN 32 H (6-23) mg/dl Creatinine 2.00 H D (0.6-1.2) mg/dl Est Cr Clr Drug Dosing 27.8 ml/min Est GFR ( Amer) 32.7 ml/min Est GFR (Non-Af Amer) 28.2 ml/min BUN/Creatinine Ratio 16.0 (10-20) Glucose 86 (70-99(Fasting)) mg/dl Calcium 9.3 (8.5-10.1) mg/dl Phosphorus 4.7 D (2.5-4.9) mg/dl Magnesium 1.7 (1.7-2.4) mg/dl Total Creatine Kinase 147 (26-192) U/L Medications Administered Current Inpatient Medications Acetaminophen (Acetaminophen 325 Mg Tab) 650 mg PO Q4H PRN PRN Reason: Pain or Fever Stop: 03/09/22 21:42 Last Admin: 02/11/22 05:25 Dose: 650 mg Documented by: Clonidine HCl (Clonidine Hcl 0.1 Mg Tab) 0.1 mg PO Q4HWA [facility] Stop: 03/10/22 07:59 Last Admin: 02/10/22 20:08 Dose: 0.1 mg Documented by: Clonidine HCl (Clonidine Hcl 0.1 Mg Tab) 0.1 mg PO Q2H PRN PRN Reason: For ANY 2 Symptoms Stop: 03/09/22 21:42 Diphenoxylate HCl/Atropine (Diphenoxylate/Atropine 2.5/0.025mg Tab) 1 tab PO Q4H PRN PRN Reason: Abdominal Cramping/Diarrhea Stop: 03/09/22 21:42 Heparin Sodium (Porcine) (Heparin Sod 5,000 Unit/0.5 Ml Vial) 5,000 units SQ Q8 [facility] Stop: 03/09/22 21:59 Last Admin: 02/11/22 05:36 Dose: 5,000 units Documented by: Daptomycin 350 mg/ Syringe 7 mls @ 3.5 mls/min IV DAILY@1100 [facility]; Protocol Stop: 02/25/22 10:59 Lorazepam (Lorazepam 2 Mg/1 Ml Vial) 1 mg IV Q4H PRN PRN Reason: Anxiety/Agitation Stop: 03/09/22 21:42 Last Admin: 02/10/22 20:08 Dose: 1 mg Documented by: Metoprolol Succinate (Metoprolol Succ 25mg Ext Rel Tab) 25 mg PO HS [facility] Stop: 03/09/22 21:42 Last Admin: 02/10/22 20:08 Dose: 25 mg Documented by: Miscellaneous (Remove Nicoderm Patch) 1 ea N/A DAILY@0859 [facility] Stop: 03/10/22 16:43 Last Admin: 02/10/22 09:48 Dose: 1 ea Documented by: Miscellaneous Information (Daptomycin Consult Active) 1 ea N/A UD PRN PRN Reason: Consult Stop: 03/10/22 07:48 Nicotine (Nicotine 14 Mg/24 Hr Patch) 14 mg TD QAM [facility] Stop: 03/10/22 16:44 Last Admin: 02/10/22 09:44 Dose: 14 mg Documented by: Nitroglycerin (Nitroglycerin Sl 0.4 Mg/Tab Tab) 0.4 mg SL UD PRN PRN Reason: Chest Pain Stop: 03/09/22 21:42 Ondansetron HCl (Ondansetron Inj 2 Mg/Ml 2 Ml Vial) 4 mg IV Q6H PRN PRN Reason: Nausea Stop: 03/09/22 21:42 Oxybutynin Chloride (Oxybutynin Chloride Xl 5 Mg Tabcr) 10 mg PO HS [facility] Stop: 03/09/22 21:42 Last Admin: 02/10/22 20:08 Dose: 10 mg Documented by: Pantoprazole Sodium (Pantoprazole 40 Mg Tab) 40 mg PO HS [facility] Stop: 03/09/22 21:42 Last Admin: 02/10/22 20:08 Dose: 40 mg Documented by: Polyethylene Glycol (Polyethylene (Miralax) 17 Gm Pack) 17 gm PO DAILY PRN PRN Reason: Constipation Stop: 03/09/22 21:42 Last Admin: 02/10/22 05:56 Dose: 17 gm Documented by: Trazodone HCl (Trazodone Hcl 50 Mg Tab) 50 mg PO HS PRN PRN Reason: Sleep Stop: 03/09/22 21:42 Last Admin: 02/11/22 00:42 Dose: 50 mg Documented by:
[2022-02-11] MEDS: cloNIDine HCL 0.1 MG TAB PO SCH ×4 (08:20→21:17)
[2022-02-11] MEDS: NICOTINE 14 MG/24 HR PATCH TD SCH (08:20)
[2022-02-11] MEDS: LORazepam 2 MG/1 ML VIAL IV PRN ×3 (08:21→22:35)
[2022-02-11] MEDS ORDERED: DAPTOmycin 350 MG in SYRINGE 0 ML IV SCH (11:00)
--- NOTE | 2022-02-11 12:54 | Nephrology Progress Note ---
Date of Service February 11, 2022 Assessment & Plan Admission and Anticipated Discharge Date Admission Date: February 07, 2022 Subjective Assessment & Plan (1) GLEN (acute kidney injury): Plan: improving GLEN w/ baseline creatinine 0.4 and peak creatinine on 02/06/22 of 3.7. presume ATN though responding so far at least as at least in part prerenal. This in the setting of daptomycin therapy for MRSA bacteremia and with recent heroin use. CK are wnl. chemistries generally acceptable; some mild HTN, but variable. -Renal functions are slowly improving but slightly worse from yesterday till today, No need of iv fluids at this point. She can eat and drink fine. -daily bmp -avoid nephrotoxins -no indication for urgent dialysis Subjective Patient seen in follow-up of GLEN, in the setting of vertebral osteomyelitis, MRSA bacteremia, heroin use Comfortable Denies fevers, chills, chest pain, shortness of breath, Review of Systems Review of Systems: All systems reviewed & are unremarkable except as noted in Subjective Physical Exam Physical Exam: GENERAL: Comfortabel,not in acute distress. HEENT: Pupils equal, round and reactive to light. Oral mucosa moist. NECK: No JVD, no neck masses. CARDIOVASCULAR: S1 and S2 heard. Regular rate and rhythm. No murmur, no gallop. RESPIRATORY SYSTEM: Normal AP diameter. No accessory muscle use. No wheezing, no crackles. ABDOMEN: Soft, bowel sounds present. Mild left lower quadrant tenderness. No guarding. no rigidity, no distention. CENTRAL NERVOUS SYSTEM: Cranial nerves II-XII grossly intact, nonfocal. EXTREMITIES: No edema, no erythema Results & Data ([facility]) Vital Signs (Past 12 Hours) Vital Signs Temp Pulse Pulse Resp BP Pulse Ox 02/11/22 08:59 37.0 C 71 18 134/79 97 02/11/22 03:57 36.8 C 64 18 132/71 95
--- NOTE | 2022-02-11 14:12 | Orthopedic Consultation ---
Date of Consultation February 11, 2022 Assessment & Plan (1) Neurogenic claudication due to lumbar spinal stenosis: Assessment patient does have an MRI from end of December which demonstrates anterolisthesis spinal listhesis L4-5. There is severe spinal stenosis at this level and throughout the spine with evidence of epidural abscess at the proximal levels. At this point I recommend an updated MRI. I discussed this with the patient. She is comfortable with performing this exam. I did express my concerns regarding any significant surgical intervention in light of her health history and drug dependence. She may need to consider a tertiary care center for definitive care. She understands agrees. History of Present Illness Reason for Consultation: Back and leg pain Attending Physician: Pedro Braswell MD History of Present Illness This is a 51-year-old female who presents with worsening back and leg pain with bilateral numbness. She is known to us from having been admitted in the past. She has evidence of vertebral osteomyelitis and severe multilevel spinal stenosis. She does admit to IV drug use. The patient is continuing to use drugs. Today she describes numbness in the perineal area and bilateral anterior posterior thighs. There is no strength deficits per her description. There is numbness tingling in the toes. She has been able to stand and ambulate she is not lost control of bowel or bladder. Allergies Allergy/AdvReac Type Severity Reaction Status Date / Time No Known Allergies Allergy Verified 02/07/22 20:19 Home Medications Medication Instructions Recorded Confirmed Type hydrochlorothiazide 25 mg tablet 25 mg PO HS 01/22/22 02/07/22 History metoprolol succinate 25 mg 25 mg PO HS 01/22/22 02/07/22 History tablet,extended release 24 hr omeprazole 20 mg capsule,delayed 20 mg PO HS 01/22/22 02/07/22 History release oxybutynin chloride 10 mg 10 mg PO HS 01/22/22 02/07/22 History tablet,extended release 24 hr clonidine HCl 0.1 mg tablet 0.1 mg PO BID 02/01/22 02/07/22 History acetaminophen-pamabrom 500 mg-25 1 tab PO QID PRN 02/07/22 02/07/22 History mg tablet (Midol) trazodone 50 mg tablet 50 mg PO HS PRN 02/07/22 02/07/22 History Patient History Medical History Acute osteomyelitis of lumbar spine Alcohol abuse Benzodiazepine abuse Cannabis abuse Chronic low back pain Cocaine abuse GERD (gastroesophageal reflux disease) Heroin abuse Hypertension Insomnia MRSA bacteremia Vertebral osteomyelitis Surgical History History of appendectomy History of cholecystectomy History of tubal ligation Hx of augmentation mammoplasty Social History Smoking Status: Current every day smoker Second Hand Exposure: No; Tobacco Cessation Education Requested by Patient: No Hx Alcohol Use: Yes Alcohol type: beer, wine and hard liquor Hx Substance Use: Yes Non-Prescribed Medications: Heroin Last Used Substance: Just Prior to Arrival Substance Use Type Other:: taking lorazepam Preferred Language: Kyrgyz Communication Ability: Effective Esl Instructor Required: No Beliefs That Will Affect Care: None marital status: / Current Living Situation: Alone Feels Safe at Home: Yes Safety Concerns: Feels Safe At This Time Assistive Devices: None Physical Exam Physical Exam: Patient is in bed. She able to sit up without limitation. She has plus out of 5 plantar flexion dorsiflexion since houses longus. Deep tendon reflexes diminished. Sensory diminished bilaterally. Results & Data ([facility]) Vital Signs (Past 12 Hours) Vital Signs Temp Pulse Pulse Pulse Resp BP Pulse Ox 02/11/22 13:02 36.7 C 69 16 131/77 98 02/11/22 08:59 37.0 C 71 18 134/79 97 02/11/22 08:00 64 02/11/22 03:57 36.8 C 64 18 132/71 95
--- NOTE | 2022-02-11 16:09 | XRay Report ---
BONY ORBITS 3 VIEWS CLINICAL HISTORY: MRI clearance. FINDINGS: 3 views of the bony orbits are obtained. There is no radiodense/metallic foreign body seen in the region of the bony orbits. The bony orbits are intact as imaged. The visualized paranasal sinu ses and the mastoid air cells appear clear. The imaged calvarium appears intact. IMPRESSION: There is no radiodense/metallic foreign body seen in the region of the bony orbits. ACT 112: Negative or not required by law. Electronically signed by: Eduard Khan M.D. 02/11/2022 4:07 PM
[2022-02-11] MEDS: OXYBUTYNIN CHLORIDE XL 5 MG TABCR PO SCH (20:49)
[2022-02-11] MEDS: PANTOprazole 40 MG TAB PO SCH (21:17)
[2022-02-11] MEDS: METOPROLOL SUCC 25MG EXT REL TAB PO SCH (21:17)
--- NOTE | 2022-02-11 21:37 | Magnetic Resonance Report ---
MR lumbar spine wo con CLINICAL HISTORY: back and leg pain TECHNIQUE: Multiplanar sequences through the lumbar spine were obtained, without intravenous contrast . Comparison: Comparison is made to MRI lumbar spine 01/22/2022 FINDINGS: Multilevel degenerative changes are seen. There is grade 1 anterolisthesis of L4-L5. L1-L2: Moderate posterior disc bulge is seen at L1 on L2 with moderate canal stenosis and mild bilate ral neural foraminal stenosis. L2-L3: Degenerative disc disease is seen with a moderate posterior disc bulge and a disc extrusion. T here is moderate canal stenosis and moderate right and mild left neuroforaminal stenosis. L3-L4: A large posterior disc bulge and bilateral facet arthropathy is seen. There is severe canal st enosis, AP diameter 7 mm. Severe bilateral neural foraminal stenosis is seen. L4-L5: Large posterior disc bulge and facet arthropathy is seen with resulting severe canal stenosis, AP diameter 7 mm. Severe bilateral neuroforaminal stenosis is seen. L5-S1: Small posterior disc bulge is seen. Mild bilateral neural foraminal stenosis and canal stenosi s. The spinal ligaments are intact, without evidence of disruption or abnormal signal intensity. The spi nal cord is normal in signal intensity and there is no evidence of cord contusion. There is no eviden ce of an extradural, intradural, extramedullary or intramedullary lesion. Visualized soft tissues are normal. IMPRESSION: 1. Multilevel degenerative changes are seen with up to severe canal and neural foraminal stenosis. F indings are similar in extent to prior exam. 2. Redemonstration of disc extrusion at L2-L3. ACT 112: Negative or not required by law. Electronically signed by: Carlin Kirkpatrick M.D. 02/11/2022 9:35 PM
[2022-02-12] MEDS: LORazepam 2 MG/1 ML VIAL IV PRN ×5 (04:24→21:18)
[2022-02-12] MEDS: HEPARIN SOD 5,000 UNIT/0.5 ML VIAL SQ SCH ×3 (05:47→20:59)
[2022-02-12 06:34] LABS: BUN Creatinine Ratio 20.3 (10-20); Calcium 9.3 mg/dl (8.5-10.1); Creatinine Clr Calc Pharmacy 29.9 ml/min; Est GFR (African American) 37.9 ml/min; Est GFR (Non-African American) 32.7 ml/min; Phosphorus 5.4 mg/dl (2.5-4.9); Potassium 4.4 mmol/L (3.5-5.1)
--- NOTE | 2022-02-12 08:02 | Hospitalist Progress Note ---
Date of Service February 12, 2022 Assessment & Plan (1) GLEN (acute kidney injury): Plan: This is a 51-year-old female who was recently in the hospital for vertebral osteomyelitis, MRSA bacteremia, and heroin withdrawal, comes back because of acute kidney injury. 1. Acute kidney injury: Creatinine of 2.8 on admission, day prior to admission 3.6. On 01/31/2022, it was 1.4, on last admission it was 0.4-0.5. Last admission was in the first week of January. Could be from the vancomycin she received in the hospital, could be from the daptomycin. She was advised to stop lisinopril when she was in the ER on 01/31/2022. Seems to be currently still on hydrochlorothiazide, will hold the hydrochlorothiazide. Continued IV normal saline 100 mL per hour - stop now (02/11) Renal ultrasound was okay. ID consulted for the antibiotic recommendations. As per pharmacy, we can give daptomycin q. 48 hours. Follow labs. Nephrology also consulted. Appreciate their input Cr 1.7 (02/10) down from 2.5 (02/11) Cr 2.0 - stop IVF (02/12) Cr 1.8 History of MRSA bacteremia, vertebral osteomyelitis ID consulted for the antibiotic recommendations. For now continue IV daptomycin every 48 hours, per pharmacy ID recommendations: Repeat ESR HIV and HCV screening (I personally discussed with the patient HIV screening, and patient is in agreement) Okay to continue IV daptomycin while in the hospital, but at discharge, would consider switching her to doxycycline 100 mg p.o. twice daily and rifampin 300 mg p.o. twice daily until she can be seen in the ID clinic for follow-up. Patient reports increased numbness in buttocks area, and radiating down to her legs for past few days, Given her GLEN, hesitant about imaging study with contrast,therefore further discuss with orthopedics/ and nephrology/ ID Dr. Reno (ortho-spine) ordered repeat spine MRI w/o contrast FINDINGS: Multilevel degenerative changes are seen. There is grade 1 anterolisthesis of L4-L5. L1-L2: Moderate posterior disc bulge is seen at L1 on L2 with moderate canal stenosis and mild bilateral neural foraminal stenosis. L2-L3: Degenerative disc disease is seen with a moderate posterior disc bulge and a disc extrusion. There is moderate canal stenosis and moderate right and mild left neuroforaminal stenosis. L3-L4: A large posterior disc bulge and bilateral facet arthropathy is seen. There is severe canal stenosis, AP diameter 7 mm. Severe bilateral neural foraminal stenosis is seen. L4-L5: Large posterior disc bulge and facet arthropathy is seen with resulting severe canal stenosis, AP diameter 7 mm. Severe bilateral neuroforaminal stenosis is seen. L5-S1: Small posterior disc bulge is seen. Mild bilateral neural foraminal stenosis and canal stenosis. The spinal ligaments are intact, without evidence of disruption or abnormal signal intensity. The spinal cord is normal in signal intensity and there is no evidence of cord contusion. There is no evidence of an extradural, intradural, extramedullary or intramedullary lesion. Visualized soft tissues are normal. IMPRESSION: 1. Multilevel degenerative changes are seen with up to severe canal and neural foraminal stenosis. Findings are similar in extent to prior exam. 2. Re-demonstration of disc extrusion at L2-L3. 2. Heroin abuse: Monitor for withdrawal with clonidine and Ativan p.r.n. Needs counseling. Patient reports interest in abstinence from heroin use. She is interested in establishing care with Suboxone clinic. We will discuss further with CM, about the possibility of rehab, or making appointment for Suboxone clinic. 3. Hypertension: Continue her home metoprolol succinate, withholding par ameters. Getting clonidine tapering dose for heroin withdrawal. Holding hydrochlorothiazide. Will monitor the blood pressure. 4. Gastroesophageal reflux disease: Continue omeprazole. DVT prophylaxis: heparin subq DISPOSITION: Closely monitor in the tele floor. PT/OT prior to discharge. Admission and Anticipated Discharge Date Admission Date: February 07, 2022 Subjective Patient seen in follow-up of GLEN, in the setting of vertebral osteomyelitis, MRSA bacteremia, heroin use Currently patient is in NAD Denies fevers, chills, chest pain, shortness of breath, abd. pain, n/v Pt seen by nephrology and ortho-spine Cr 1.8 today, stopped IVF yesterday Pt underwent MRI L spine w/o contrast Today she tells me that she is interested in getting established with Suboxone clinic, and abstinence from heroin use Review of Systems Review of Systems: All systems reviewed & are unremarkable except as noted in Subjective Physical Exam Physical Exam: GENERAL: The patient is of moderate build, not in acute distress. HEENT: NC/AT, EOMI, Pupils equal, round and reactive to light. Oral mucosa moist. NECK: No JVD. No neck masses. CARDIOVASCULAR: S1 and S2 heard. Regular rate and rhythm. No murmur, no gallop. RESPIRATORY SYSTEM: Normal AP diameter. No accessory muscle use. No wheezing, no crackles. ABDOMEN: Soft, bowel sounds present, nontender, no distention. NEURO:Alert oriented, answering questions appropriately. Speech fluent, no facial asymmetry, moves extremities EXTREMITIES: No edema, no erythema. Results & Data Results & Data ([facility]) Vital Signs (Past 12 Hours) Vital Signs Temp Pulse Pulse Resp BP Pulse Ox 02/12/22 04:08 36.6 C 62 18 140/80 95 02/11/22 23:59 36.8 C 67 18 146/81 H 96 02/11/22 22:30 79 Laboratory Results 02/12/22 Range/Units 05:47 Sodium 136 (136-145) mmol/L Potassium 4.4 (3.5-5.1) mmol/L Chloride 104 (98-107) mmol/L Carbon Dioxide 25 (21-32) mmol/L Anion Gap 7 (3-11) BUN 36 H (6-23) mg/dl Creatinine 1.77 H (0.6-1.2) mg/dl Est Cr Clr Drug Dosing 29.9 ml/min Est GFR ( Amer) 37.9 ml/min Est GFR (Non-Af Amer) 32.7 ml/min BUN/Creatinine Ratio 20.3 H (10-20) Glucose 103 H (70-99(Fasting)) mg/dl Calcium 9.3 (8.5-10.1) mg/dl Phosphorus 5.4 H (2.5-4.9) mg/dl Magnesium 2.0 (1.7-2.4) mg/dl Total Creatine Kinase 108 (26-192) U/L Medications Administered Current Inpatient Medications Acetaminophen (Acetaminophen 325 Mg Tab) 650 mg PO Q4H PRN PRN Reason: Pain or Fever Stop: 03/09/22 21:42 Last Admin: 02/11/22 20:49 Dose: 650 mg Documented by: Clonidine HCl (Clonidine Hcl 0.1 Mg Tab) 0.1 mg PO Q4HWA ERNESTO Stop: 03/10/22 07:59 Last Admin: 02/11/22 21:17 Dose: 0.1 mg Documented by: Clonidine HCl (Clonidine Hcl 0.1 Mg Tab) 0.1 mg PO Q2H PRN PRN Reason: For ANY 2 Symptoms Stop: 03/09/22 21:42 Diphenoxylate HCl/Atropine (Diphenoxylate/Atropine 2.5/0.025mg Tab) 1 tab PO Q4H PRN PRN Reason: Abdominal Cramping/Diarrhea Stop: 03/09/22 21:42 Heparin Sodium (Porcine) (Heparin Sod 5,000 Unit/0.5 Ml Vial) 5,000 units SQ Q8 [facility] Stop: 03/09/22 21:59 Last Admin: 02/12/22 05:47 Dose: Not Given Documented by: Daptomycin 350 mg/ Syringe 7 mls @ 3.5 mls/min IV Q2D@1100 [facility]; Protocol Stop: 02/27/22 10:59 Lorazepam (Lorazepam 2 Mg/1 Ml Vial) 1 mg IV Q4H PRN PRN Reason: Anxiety/Agitation Stop: 03/09/22 21:42 Last Admin: 02/12/22 04:24 Dose: 1 mg Documented by: Metoprolol Succinate (Metoprolol Succ 25mg Ext Rel Tab) 25 mg PO HS [facility] Stop: 03/09/22 21:42 Last Admin: 02/11/22 21:17 Dose: 25 mg Documented by: Miscellaneous (Remove Nicoderm Patch) 1 ea N/A DAILY@0859 [facility] Stop: 03/10/22 16:43 Last Admin: 02/11/22 08:20 Dose: 1 ea Documented by: Miscellaneous (Remove Nicoderm Patch) 1 ea N/A DAILY@0859 [facility] Stop: 03/14/22 08:58 Miscellaneous Information (Daptomycin Consult Active) 1 ea N/A UD PRN PRN Reason: Consult Stop: 03/10/22 07:48 Nicotine (Nicotine 21 Mg/24 Hr Tdsy) 21 mg TD QAM [facility] Stop: 03/14/22 08:59 Nitroglycerin (Nitroglycerin Sl 0.4 Mg/Tab Tab) 0.4 mg SL UD PRN PRN Reason: Chest Pain Stop: 03/09/22 21:42 Ondansetron HCl (Ondansetron Inj 2 Mg/Ml 2 Ml Vial) 4 mg IV Q6H PRN PRN Reason: Nausea Stop: 03/09/22 21:42 Oxybutynin Chloride (Oxybutynin Chloride Xl 5 Mg Tabcr) 10 mg PO HS ERNESTO Stop: 03/09/22 21:42 Last Admin: 02/11/22 20:49 Dose: 10 mg Documented by: Pantoprazole Sodium (Pantoprazole 40 Mg Tab) 40 mg PO HS ERNESTO Stop: 03/09/22 21:42 Last Admin: 02/11/22 21:17 Dose: 40 mg Documented by: Polyethylene Glycol (Polyethylene (Miralax) 17 Gm Pack) 17 gm PO DAILY PRN PRN Reason: Constipation Stop: 03/09/22 21:42 Last Admin: 02/10/22 05:56 Dose: 17 gm Documented by: Trazodone HCl (Trazodone Hcl 50 Mg Tab) 50 mg PO HS PRN PRN Reason: Sleep Stop: 03/09/22 21:42 Last Admin: 02/11/22 00:42 Dose: 50 mg Documented by:
[2022-02-12] MEDS: cloNIDine HCL 0.1 MG TAB PO SCH ×4 (08:27→21:13)
--- NOTE | 2022-02-12 09:34 | Nephrology Progress Note ---
Date of Service February 12, 2022 Assessment & Plan Admission and Anticipated Discharge Date Admission Date: February 07, 2022 Subjective Assessment & Plan (1) GLEN (acute kidney injury): Plan: improving GLEN w/ baseline creatinine 0.4 and peak creatinine on 02/06/22 of 3.7. presume ATN though responding so far at least as at least in part prerenal. This in the setting of daptomycin therapy for MRSA bacteremia and with recent heroin use. CK are wnl. chemistries generally acceptable; some mild HTN, but variable. -Renal functions are slowly improving , No need of iv fluids at this point. She can eat and drink fine. -daily bmp -avoid nephrotoxins -no indication for urgent dialysis Subjective Patient seen in follow-up of GLEN, in the setting of vertebral osteomyelitis, MRSA bacteremia, heroin use Comfortable Denies fevers, chills, chest pain, shortness of breath, Review of Systems Review of Systems: All systems reviewed & are unremarkable except as noted in Subjective Physical Exam Physical Exam: GENERAL: Comfortabel,not in acute distress. HEENT: Pupils equal, round and reactive to light. Oral mucosa moist. NECK: No JVD, no neck masses. CARDIOVASCULAR: S1 and S2 heard. Regular rate and rhythm. No murmur, no gallop. RESPIRATORY SYSTEM: Normal AP diameter. No accessory muscle use. No wheezing, no crackles. ABDOMEN: Soft, bowel sounds present. Mild left lower quadrant tenderness. No guarding. no rigidity, no distention. CENTRAL NERVOUS SYSTEM: Cranial nerves II-XII grossly intact, nonfocal. EXTREMITIES: No edema, no erythema Results & Data ([facility]) Vital Signs (Past 12 Hours) Vital Signs Temp Pulse Pulse Resp BP Pulse Ox 02/12/22 08:00 36.5 C 64 18 153/81 H 96 02/12/22 04:08 36.6 C 62 18 140/80 95 02/11/22 23:59 36.8 C 67 18 146/81 H 96 02/11/22 22:30 79
[2022-02-12] MEDS: NICOTINE 21 MG/24 HR TDSY TD SCH (09:51)
[2022-02-12] MEDS: ACETAMINOPHEN 325 MG TAB PO PRN (12:25)
--- NOTE | 2022-02-12 15:17 | Orthopedic Progress Note ---
Date of Service February 12, 2022 Assessment & Plan (1) Neurogenic claudication due to lumbar spinal stenosis: Plan: Assessment severe spinal stenosis. Plan as she did obtain an MRI yesterday was able to review personally. Not appreciate infection at this time there is no epidural abscess. There is severe multilevel spinal stenosis with spondylolisthesis L4-L5. I had a lengthy discussion today with this patient regarding her updated imaging and it is not worsened since her films in December. She ultimately may require surgical intervention when she is completely off of her drug dependence and is not at risk for progression. She understands her surgery is quite extensive nature and most likely need to be performed at a tertiary care center in light of her health history. She has arranged to be managed by pain clinic and will follow-up upon discharge. Admission and Anticipated Discharge Date Admission Date: February 07, 2022 Subjective Patient feels that her leg numbness has improved. Physical Exam Physical Exam: On exam she sits up in bed without difficulty. She is neurologically intact. Results & Data ([facility]) Vital Signs (Past 12 Hours) Vital Signs Temp Pulse Pulse Resp BP Pulse Ox 02/12/22 12:12 36.5 C 77 18 172/95 H 95 02/12/22 08:00 36.5 C 55 L 64 18 153/81 H 96 02/12/22 04:08 36.6 C 62 18 140/80 95
[2022-02-12] MEDS: OXYBUTYNIN CHLORIDE XL 5 MG TABCR PO SCH (21:14)
[2022-02-12] MEDS: METOPROLOL SUCC 25MG EXT REL TAB PO SCH (21:15)
[2022-02-12] MEDS: PANTOprazole 40 MG TAB PO SCH (21:15)
[2022-02-13] MEDS: LORazepam 2 MG/1 ML VIAL IV PRN ×4 (04:23→20:05)
[2022-02-13] MEDS: HEPARIN SOD 5,000 UNIT/0.5 ML VIAL SQ SCH ×3 (05:47→20:21)
[2022-02-13 06:56] LABS: Hematocrit (blood only) 31.5 % (37-47); Hemoglobin 10.2 g/dL (12.0-16.0); Mean Corpuscular Hemoglobin 27.3 pg (25-34); Mean Corpuscular Hgb Conc 32.4 g/dL (32-36); Mean Corpuscular Volume 84.2 fL (80-100); Mean Platelet Volume 9.9 fL (7.4-10.4); Platelet Count 282 K/uL (130-400); RDW Coefficient of Variation 15.9 % (11.5-14.5); RDW Standard Deviation 49.4 fL (36.4-46.3); Red Blood Count 3.74 M/uL (4.2-5.4); White Blood Count 5.17 K/uL (4.8-10.8)
[2022-02-13 07:18] LABS: BUN Creatinine Ratio 21.9 (10-20); Calcium 9.2 mg/dl (8.5-10.1); Creatinine Clr Calc Pharmacy 28.3 ml/min; Est GFR (African American) 35.4 ml/min; Est GFR (Non-African American) 30.6 ml/min; Magnesium 1.8 mg/dl (1.7-2.4); Phosphorus 4.9 mg/dl (2.5-4.9); Potassium 4.2 mmol/L (3.5-5.1)
[2022-02-13] MEDS: ACETAMINOPHEN 325 MG TAB PO PRN ×3 (08:12→17:52)
[2022-02-13] MEDS: cloNIDine HCL 0.1 MG TAB PO SCH ×4 (08:12→20:13)
[2022-02-13] MEDS: NICOTINE 21 MG/24 HR TDSY TD SCH (08:13)
--- NOTE | 2022-02-13 10:36 | Nephrology Progress Note ---
Date of Service February 13, 2022 Assessment & Plan Admission and Anticipated Discharge Date Admission Date: February 07, 2022 Subjective Assessment & Plan (1) GLEN (acute kidney injury): Plan: improving GLEN w/ baseline creatinine 0.4 and peak creatinine on 02/06/22 of 3.7. presume ATN though responding so far at least as at least in part prerenal. This in the setting of daptomycin therapy for MRSA bacteremia and with recent heroin use. chemistries generally acceptable; some mild HTN, but variable. -Renal functions are about stable hovering just uder 2 range now. may remain there for a while -daily bmp -avoid nephrotoxins Can be seen in f/u 2 weeks after discharge Subjective Patient seen in follow-up of GLEN, in the setting of vertebral osteomyelitis, MRSA bacteremia, heroin use Comfortable Denies fevers, chills, chest pain, shortness of breath, Review of Systems Review of Systems: All systems reviewed & are unremarkable except as noted in Subjective Physical Exam Physical Exam: GENERAL: Comfortabel,not in acute distress. HEENT: Pupils equal, round and reactive to light. Oral mucosa moist. NECK: No JVD, no neck masses. CARDIOVASCULAR: S1 and S2 heard. Regular rate and rhythm. No murmur, no gallop. RESPIRATORY SYSTEM: Normal AP diameter. No accessory muscle use. No wheezing, no crackles. ABDOMEN: Soft, bowel sounds present. Mild left lower quadrant tenderness. No guarding. no rigidity, no distention. CENTRAL NERVOUS SYSTEM: Cranial nerves II-XII grossly intact, nonfocal. EXTREMITIES: No edema, no erythema Results & Data ([facility]) Vital Signs (Past 12 Hours) Vital Signs Temp Pulse Resp BP Pulse Ox 02/13/22 06:38 36.5 C 70 18 157/89 H 97 02/13/22 03:06 36.8 C 63 16 148/82 H 98 02/12/22 23:21 36.5 C 87 18 169/94 H 95
[2022-02-13] MEDS ORDERED: DAPTOmycin 350 MG in SYRINGE 0 ML IV SCH (11:00)
--- NOTE | 2022-02-13 17:40 | Hospitalist Progress Note ---
Date of Service February 13, 2022 Assessment & Plan (1) GLEN (acute kidney injury): Plan: 51-year-old female who was recently in the hospital for vertebral osteomyelitis, MRSA bacteremia, and heroin withdrawal, comes back 02/08 because of acute kidney injury. She is being managed for the followin. Acute kidney injury: Creatinine of 2.8 on admission, day prior to admission 3.6. On 01/31/2022, it was 1.4, on last admission it was 0.4-0.5. Last admission was in the first week of January. Could be from the vancomycin she received in the hospital, could be from the daptomycin, could be from heroin use. She was advised to stop lisinopril when she was in the ER on 01/31/2022. c/t hold HCTZ. Renal ultrasound was okay. Nephro on board, avoid nephrotoxin, daily BMP, follow-up with nephrology in 2 weeks upon discharge. Creatinine 1.87, follow-up in AM. #. ID consulted for the antibiotic recommendations. #. History of MRSA bacteremia/vertebral osteomyelitis ID evaluated, unusual that GLEN could be from Dapto, continue IV Dapto while in hospital, get HIV and HCV screening, upon DC can use Doxy 100mg twice daily and rifampin 300 mg twice daily until she can be seen in the ID clinic for follow- up. Patient reports increased numbness in buttocks area, and radiating down to her legs , orthospine evaluated, MRI without contrast with multilevel degenerative changes and severe canal and neural foraminal stenosis. Follow-up with orthospine upon discharge. Currently conservative management. Can use [id number] lidocaine patch upon discharge. Will probably need follow-up with pain clinic as an outpatient if pain worsens. 2. Heroin abuse: Monitor for withdrawal with clonidine and Ativan p.r.n. Needs counseling. Patient reports interest in abstinence from heroin use. She is interested in establishing care with Suboxone clinic. CM to assist with DC planning and or making appointment for Suboxone clinic. 3. Hypertension: Continue her home metoprolol succinate, withholding parameters. Getting clonidine tapering dose for heroin withdrawal. Holding hydrochlorothiazide. Will monitor the blood pressure. 4. Gastroesophageal reflux disease: Continue omeprazole. DVT prophylaxis: heparin subq DISPOSITION: Closely monitor in the tele floor. Per CM, pt provided info to set herself up with subutex clinic. Likely DC in next 1-2 days. Admission and Anticipated Discharge Date Admission Date: February 07, 2022 Subjective Patient seen and examined at bedside as a follow-up of history of MRSA bacteremia/vertebral osteomyelitis and GLEN. Patient was sitting up in bed, on room air, eating her lunch. Overnight, patient complained of low back pain and was unable to sleep. Melatonin and lidocaine patch. Patient reports eating okay and moving bowels okay. Patient denies any headache/dizziness/chest pain/palpitation/other review of symptoms. Physical Exam Physical Exam: GENERAL: Alert and oriented x3. NAD, on RA. HEENT: No pallor, no icterus. Pupils equal, round and reactive to light. Oral mucosa moist. NECK: No JVD, no neck masses. HEART: S1 and S2 heard. Regular rate and rhythm. Systolic murmur at Aortic Area, no gallop. RESPIRATORY SYSTEM: Normal AP diameter. No accessory muscle use. No wheezing, no crackles. ABDOMEN: Soft, bowel sounds present, nontender, no distention. CENTRAL NERVOUS SYSTEM: No facial droop. Speech is clear. Obeys simple commands. Moves extremities. EXTREMITIES: No edema, no erythema seen. Results & Data Results & Data ([facility]) Vital Signs (Past 12 Hours) Vital Signs Temp Pulse Resp BP Pulse Ox 02/13/22 15:07 36.4 C L 78 16 159/84 H 97 02/13/22 12:00 36.7 C 75 16 149/79 H 95 02/13/22 06:38 36.5 C 70 18 157/89 H 97
[2022-02-13] MEDS: LIDOCAINE 5% 1 PATCH TD SCH (18:55)
[2022-02-13] MEDS: OXYBUTYNIN CHLORIDE XL 5 MG TABCR PO SCH (20:14)
[2022-02-13] MEDS: METOPROLOL SUCC 25MG EXT REL TAB PO SCH (20:14)
[2022-02-13] MEDS: PANTOprazole 40 MG TAB PO SCH (20:14)
[2022-02-13] MEDS ORDERED: MELATONIN 3 MG TAB PO SCH (21:00)
[2022-02-14] MEDS: LORazepam 2 MG/1 ML VIAL IV PRN ×3 (04:29→12:38)
[2022-02-14] MEDS: HEPARIN SOD 5,000 UNIT/0.5 ML VIAL SQ SCH ×2 (04:29→14:38)
[2022-02-14 07:57] LABS: Calcium 8.8 mg/dl (8.5-10.1); Creatinine Clr Calc Pharmacy 35.1 ml/min; Est GFR (African American) 45.5 ml/min; Est GFR (Non-African American) 39.3 ml/min; Potassium 4.5 mmol/L (3.5-5.1)
[2022-02-14] MEDS: ACETAMINOPHEN 325 MG TAB PO PRN ×2 (09:05→12:39)
[2022-02-14] MEDS: LIDOCAINE 5% 1 PATCH TD SCH (09:05)
[2022-02-14] MEDS: NICOTINE 21 MG/24 HR TDSY TD SCH (09:05)
[2022-02-14] MEDS: cloNIDine HCL 0.1 MG TAB PO SCH ×2 (09:06→12:39)
--- NOTE | 2022-02-14 09:23 | Nephrology Progress Note ---
Date of Service February 14, 2022 Assessment & Plan Admission and Anticipated Discharge Date Admission Date: February 07, 2022 Subjective Assessment & Plan (1) GLEN (acute kidney injury): Plan: improving GLEN w/ baseline creatinine 0.4 and peak creatinine on 02/06/22 of 3.7. presume ATN though responding so far at least as at least in part prerenal. This in the setting of daptomycin therapy for MRSA bacteremia and with recent heroin use. chemistries generally acceptable; some mild HTN, but variable. -Renal functions are slowly getting better but not back to baseline of under 1. -daily bmp -avoid nephrotoxins Can be seen in f/u 2 weeks after discharge Will sign off. Call if any new issues Subjective Patient seen in follow-up of GLEN, in the setting of vertebral osteomyelitis, MRSA bacteremia, heroin use Comfortable Denies fevers, chills, chest pain, shortness of breath, Review of Systems Review of Systems: All systems reviewed & are unremarkable except as noted in Subjective Physical Exam Physical Exam: GENERAL: Comfortabel,not in acute distress. HEENT: Pupils equal, round and reactive to light. Oral mucosa moist. NECK: No JVD, no neck masses. CARDIOVASCULAR: S1 and S2 heard. Regular rate and rhythm. No murmur, no gallop. RESPIRATORY SYSTEM: Normal AP diameter. No accessory muscle use. No wheezing, no crackles. ABDOMEN: Soft, bowel sounds present. Mild left lower quadrant tenderness. No guarding. no rigidity, no distention. CENTRAL NERVOUS SYSTEM: Cranial nerves II-XII grossly intact, nonfocal. EXTREMITIES: No edema, no erythema Results & Data ([facility]) Vital Signs (Past 12 Hours) Vital Signs Temp Pulse Pulse Resp BP BP Pulse Ox 02/14/22 07:31 36.8 C 64 18 142/79 H 98 02/14/22 04:11 36.8 C 58 L 18 142/80 H 98 02/13/22 23:29 72 02/13/22 22:56 36.6 C 62 18 137/67 93
--- NOTE | 2022-02-14 13:34 | Discharge Summary ---
Date of Service February 14, 2022 Admission HPI Per Admitting Provider CHIEF COMPLAINT: GLEN, history of heroin abuse and MRSA bacteremia, vertebral osteomyelitis. HISTORY OF PRESENT ILLNESS: This is a 51-year-old female with past medical history significant for hypertension, GERD, heroin use, and chronic back pain, who was recently in the hospital, and found to have vertebral osteomyelitis and MRSA bacteremia. In the hospital, she was given IV vancomycin, plan for 6 weeks of IV antibiotics, but the patient signed out AMA and she came the next day to the ER and at that time she was agreeable for IV antibiotics and she was transitioned to daptomycin on 01/31/2022 and was getting through [facility] because of her history of heroin abuse and she was following with the PCP and outpatient labs showed progressively worsening kidney function. On 01/30/2022, her creatinine was 1.4, it was 3.4 on 02/04/2022 and 3.6 on 02/06/2022, and the PCP advised to come to the ER today and today in the ER it is 2.8, and when her creatinine was 1.4, the patient was instructed to stop lisinopril at that time. As per the current med list , she is on hydrochlorothiazide too. The patient during the last hospitalization, she was placed on clonidine and Ativan p.r.n. for heroin withdrawal. There is a question of alcoholism and was also on Librium p.r.n. The patient says after going home she was not drinking alcohol, but she was doing heroin 2 times a day, snuffing, and sometimes eating it, the last dose was today morning. She thinks that she may be getting withdrawal soon. She says she used to do IV drug abuse in the past, but currently she is snuffing. Says she quit drugs for 7 years , but again restarted 2 years ago after her , and now she thinks she wants to quit it again. Has some headache, some dizziness, no blurred visions, no earache, no runny nose, no sore throat, no cough. Feeling hot and cold. Appetite is okay. Eating and drinking okay. No chest pain. She thinks she is always short of breath for the last 2 years with exertion. Currently, no nausea, no abdominal pain. Somewhat constipated. No bowel or bladder incontinence. No blood in the stool or black stools. No swelling in the legs. She is having severe back pains on and off, mostly in the mornings. Ambulating okay. ALLERGIES: No known drug allergies. PAST MEDICAL HISTORY: As mentioned above. PAST SURGICAL HISTORY: Carpal tunnel surgery, right side; ; cystoscopy; laparoscopic cholecystectomy; ligation of oviducts; bilateral reduction of the breasts; appendectomy; tonsillectomy and adenoidectomy. MEDICATIONS: she is on acetaminophen/parabrom 1 tablet q.i.d. p.r.n., clonidine looks like tapering dose 0.1 mg p.o. b.i.d., hydrochlorothiazide 25 mg p.o. at bedtime, metoprolol 25 mg p.o. at bedtime, omeprazole 20 mg p.o. at bedtime, oxybutynin chloride 10 mg p.o. at bedtime, trazodone 50 mg p.o. at bedtime p.r.n. FAMILY HISTORY: No family history on file. SOCIAL HISTORY: . Smokes half pack a day. Says currently not using alcohol. Doing heroin 2 times a day. REVIEW OF SYSTEMS: As per HPI. Rest of the review of systems is negative. Admission Exam Per Admitting Provider GENERAL: The patient is of moderate build, not in acute distress. VITAL SIGNS: Temperature 37.1, pulse 69, respiratory rate 16, blood pressure 144/89, oxygen 95% on room air. HEENT: Pupils equal, round and reactive to light. Oral mucosa moist. NECK: No JVD. No neck masses. CARDIOVASCULAR: S1 and S2 heard. Regular rate and rhythm. No murmur, no gallop. RESPIRATORY SYSTEM: Normal AP diameter. No accessory muscle use. No wheezing, no crackles. ABDOMEN: Soft, bowel sounds present, nontender, no distention. CENTRAL NERVOUS SYSTEM: Cranial nerves II-XII grossly intact, nonfocal. EXTREMITIES: No edema, no erythema. Principal Diagnosis Acute kidney injury History of MRSA bacteremia/vertebral osteomyelitis on ongoing antibiotic treatment Ongoing heroin abuse Discharge Exam GENERAL: Alert and oriented x3. NAD, on RA. HEENT: No pallor, no icterus. Pupils equal, round and reactive to light. Oral mucosa moist. NECK: No JVD, no neck masses. HEART: S1 and S2 heard. Regular rate and rhythm. Systolic murmur at Aortic Area, no gallop. RESPIRATORY SYSTEM: Normal AP diameter. No accessory muscle use. No wheezing, no crackles. ABDOMEN: Soft, bowel sounds present, nontender, no distention. CENTRAL NERVOUS SYSTEM: No facial droop. Speech is clear. Obeys simple co mmands. Moves extremities. EXTREMITIES: No edema, no erythema seen. Discharge Data Allergies Allergy/AdvReac Type Severity Reaction Status Date / Time No Known Allergies Allergy Verified 02/07/22 20:19 Consultations 02/07/22 18:59 ED Decision to Admit Stat 02/08/22 08:00 Consult Infectious Diseases Routine Consult Nephrology Routine 02/10/22 10:03 Consult Orthopedic Surgery Routine Ordered Studies 02/07/22 18:21 US renal/blad retro comp Stat 02/11/22 14:08 MR lumbar spine wo con Routine Hospital Course (1) GLEN (acute kidney injury): 51-year-old female who was recently in the hospital for vertebral osteomyelitis, MRSA bacteremia, and heroin withdrawal, comes back 02/08 because of acute kidney injury. She was managed for the followin. Acute kidney injury: Creatinine of 2.8 on admission, day prior to admission 3.6. On 01/31/2022, it was 1.4, on last admission it was 0.4-0.5. Last admission was in the first week of January. Could be from the vancomycin she received in the hospital, could be from the daptomycin, could be from heroin use. She was advised to stop lisinopril when she was in the ER on 01/31/2022. c/t hold HCTZ upon discharge. Renal ultrasound was okay. Nephro evaluated, avoid nephrotoxin, daily BMP, follow-up with nephrology in 2 weeks upon discharge. Creatinine down trended to 1.52, continue with adequate fluid intake as discussed at the bedside. Get your blood work CBC and BMP in 1 week and have the results forwarded to your primary care physician. #. ID consulted for the antibiotic recommendations. #. History of MRSA bacteremia/vertebral osteomyelitis ID evaluated, unusual that GLEN could be from Dapto, continue IV Dapto while in hospital, get HIV and HCV screening, upon DC can use Doxy 100mg twice daily and rifampin 300 mg twice daily until she can be seen in the ID clinic for follow- up. Patient reports increased numbness in buttocks area, and radiating down to her legs , orthospine evaluated, MRI without contrast with multilevel degenerative changes and severe canal and neural foraminal stenosis. Follow-up with orthospine upon discharge. Currently conservative management. Can use [id number] lidocaine patch upon discharge. Will probably need follow-up with pain clinic as an outpatient if pain worsens. 2. Heroin abuse: Monitor for withdrawal with clonidine and Ativan p.r.n. Needs counseling. Patient reports interest in abstinence from heroin use. She is interested in establishing care with Suboxone clinic. CM to assist with DC planning and or making appointment for Suboxone clinic. 3. Hypertension: Continue her home metoprolol succinate, withholding parameters. Getting clonidine tapering dose for heroin withdrawal. Holding hydrochlorothiazide. Will monitor the blood pressure. 4. Gastroesophageal reflux disease: Continue omeprazole. Patient being discharged home with following instruction at the point of discharge: Follow-up with your primary care physician within a week time. Follow-up with your kidney doctor in 2 weeks time. Follow-up with infectious disease doctor within 2-3 weeks time. For your back pain, you can use Tylenol as needed and [id number] lidocaine patch daily. You need to follow-up with orthospine as an outpatient for further evaluation and management of your severe canal and neural foraminal stenosis. Get your blood work CBC and BMP done in a week time and have the results forwarded to your primary care physician. Your kidney functions are getting better while in hospital, continue to drink adequate fluid daily depending upon your work situations/exertion as discussed at the bedside. Your lisinopril has been recently discontinued on 01/31/2022. We will continue to hold your hydrochlorothiazide upon discharge, you will need to follow-up with your kidney doctor/primary care physician as outpatient to discuss about resuming your hydrochlorothiazide. Infectious disease doctor evaluated you, we will discontinue your IV daptomycin upon discharge, you will be discharged on doxycycline 100 mg twice a day and rifampin 300 mg twice a day. As discussed at the bedside, continue to take this antibiotic until seen by infectious disease doctor. Follow-up with infectious disease doctor within 2 to 3 weeks time. You will need to hold further discussion with infectious disease doctor for your antibiotic. Appreciate your contemplation to quit using heroin, please follow-up with the Suboxone clinic as an outpatient. Continue your clonidine for 3 times a day for 7 to 10 days and then back to your usual regimen of twice a day. Take medications as prescribed. Total Time Total Time Spent Total Time Spent (In Minutes): 40 Discharge Plan Discharge Items Patient Disposition: Home - Self-Care Reason For Visit: GLEN Discharge Diagnosis: Acute kidney injury History of MRSA bacteremia/vertebral osteomyelitis on ongoing antibiotic treatment Ongoing heroin abuse Activity: Resume your previous activity Non-emergency contact: Primary Care Provider Call non-emergency contact if: you have any medication questions, your symptoms worsen, your pain is not controlled and your temperature is above 101 Follow-up/Referrals: Vidal Amador MD [Primary Care Provider] - (Date & Time 02/20/2022 11:20 AM Provider Vidal Amador MD Department Family [facility] ) Diet: Heart Healthy Addtl Attending Provider Instructions: Follow-up with your primary care physician within a week time. Follow-up with your kidney doctor in 2 weeks time. Follow-up with infectious disease doctor within 2-3 weeks time. For your back pain, you can use Tylenol as needed and [id number] lidocaine patch daily. You need to follow-up with orthospine as an outpatient for further evaluation and management of your severe canal and neural foraminal stenosis. Get your blood work CBC and BMP done in a week time and have the results forwarded to your primary care physician. Your kidney functions are getting better while in hospital, continue to drink adequate fluid daily depending upon your work situations/exertion as discussed at the bedside. Your lisinopril has been recently discontinued on 01/31/2022. We will continue to hold your hydrochlorothiazide upon discharge, you will need to follow-up with your kidney doctor/primary care physician as outpatient to discuss about resuming your hydrochlorothiazide. Infectious disease doctor evaluated you, we will discontinue your IV daptomycin upon discharge, you will be discharged on doxycycline 100 mg twice a day and rifampin 300 mg twice a day. As discussed at the bedside, continue to take this antibiotic until seen by infectious disease doctor. Follow-up with infectious disease doctor within 2 to 3 weeks time. You will need to hold further discussion with infectious disease doctor for your antibiotic. Appreciate your contemplation to quit using heroin, please follow-up with the Suboxone clinic as an outpatient. Continue your clonidine for 3 times a day for 7 to 10 days and then back to your usual regimen of twice a day. Take medications as prescribed. Pending Studies at Discharge: No Stand-Alone Forms: My [facility], Smoking Cessation Medications and DC Order Prescriptions: New nicotine [Nicoderm CQ] 21 mg/24 hr Patch 24 Hour 21 mg transdermal QAM 28 Days Qty: 28 RF: 0 acetaminophen 325 mg Tablet 650 mg PO Q8H PRN (Reason: pain) Qty: 60 RF: 0 melatonin 3 mg Tablet 3 mg PO HS Qty: 30 RF: 0 doxycycline hyclate 100 mg tablet 100 mg PO BID 21 Days Qty: 42 RF: 0 rifampin 300 mg capsule 300 mg PO Q12H Qty: 21 RF: 0 Continued trazodone 50 mg tablet 50 mg PO HS PRN (Reason: Sleep) RF: 0 Midol 500-25 mg Tablet 1 tab PO QID PRN (Reason: Cramps) RF: 0 oxybutynin chloride 10 mg tablet extended release 24 hr 10 mg PO HS RF: 0 omeprazole 20 mg capsule,delayed release(DR/EC) 20 mg PO HS RF: 0 metoprolol succinate 25 mg tablet extended release 24 hr 25 mg PO HS RF: 0 Changed clonidine HCl 0.1 mg Tablet 0.1 mg PO TID Qty: 60 RF: 0 Discontinued hydrochlorothiazide 25 mg tablet 25 mg PO HS RF: 0 Discharge Orders: Discharge Order (Routine); Ordered 02/14/22 Ordered By: Zoë Weller Admission Data Admit Date/Time: 02/07/22 20:42 Attending Provider: Zoë Wleler Admit Provider: Pedro Braswell Primary Care Provider: Vidal Amador Other Providers: Colby Savage ; Amilcar Vazquez ; Valente Tubbs ; Be Cronin I. ; Richard Davey II ; Phuong Curtis ; Virgilio Kay ; Fercho Arias ; Ashleigh Yee ; Denys Reno
[2022-02-14] MEDS ORDERED: DAPTOmycin 350 MG in SYRINGE 0 ML IV SCH (14:00)
[2022-02-18 06:06] LABS: Hepatitis C Vira RNA (Log) PCR <1.18 NOT DETECTED Log IU/mL (NOT DETECTED); Hepatitis C Viral RNA by PCR <15 NOT DETECTED IU/mL (NOT DETECTED)
== END 2022-02-14 17:38 | disposition home or self-care (01) | DRG 683 ==
LOC: ED 16:41 → SUATTDRO 20:42 → 2E 20:42